=== PATIENT | male | born 1950 | race Caucasian/White ===

== ENCOUNTER 2021-08-17 12:18 | Outpatient (REF) | payer MEDICARE, MEDICAID, SELFPAY ==
--- NOTE | ~2021-08-17 | XR_ITS ---
EXAMINATION: XR KNEES, STANDING AP XR KNEE, RIGHT XR KNEE, LEFT CLINICAL INFORMATION: Knee pain COMPARISON: None TECHNIQUE: Standing AP view of both knees is performed. In addition, each knee is imaged in lateral and axial patella views. FINDINGS: Right: Tricompartment osteoarthritis, greatest medial compartment with secondary genu varus and borderline medial subluxation femur. There is chondrocalcinosis lateral meniscus and trace suprapatellar effusion. No visible erosive change. No lateralization patella. No destructive process. There are scattered atherosclerotic changes vasculature. Left: Tricompartment osteoarthritis, greatest medial compartment with secondary genu varus. There is chondrocalcinosis lateral meniscus and trace suprapatellar effusion. No visible erosive change. No lateralization patella. No destructive process. There are scattered atherosclerotic changes vasculature. XR/XR knee standing BI IMPRESSION: -Bilateral tricompartment osteoarthritis greatest medial compartments with secondary genu varus. -Borderline medial subluxation right femur. -Trace bilateral suprapatellar effusion. -Bilateral meniscal chondrocalcinosis. No erosive changes.
--- NOTE | ~2021-08-17 | XR_ITS ---
EXAMINATION: XR KNEES, STANDING AP XR KNEE, RIGHT XR KNEE, LEFT CLINICAL INFORMATION: Knee pain COMPARISON: None TECHNIQUE: Standing AP view of both knees is performed. In addition, each knee is imaged in lateral and axial patella views. FINDINGS: Right: Tricompartment osteoarthritis, greatest medial compartment with secondary genu varus and borderline medial subluxation femur. There is chondrocalcinosis lateral meniscus and trace suprapatellar effusion. No visible erosive change. No lateralization patella. No destructive process. There are scattered atherosclerotic changes vasculature. Left: Tricompartment osteoarthritis, greatest medial compartment with secondary genu varus. There is chondrocalcinosis lateral meniscus and trace suprapatellar effusion. No visible erosive change. No lateralization patella. No destructive process. There are scattered atherosclerotic changes vasculature. XR/XR knee LT 2V IMPRESSION: -Bilateral tricompartment osteoarthritis greatest medial compartments with secondary genu varus. -Borderline medial subluxation right femur. -Trace bilateral suprapatellar effusion. -Bilateral meniscal chondrocalcinosis. No erosive changes.
--- NOTE | ~2021-08-17 | XR_ITS ---
EXAMINATION: XR KNEES, STANDING AP XR KNEE, RIGHT XR KNEE, LEFT CLINICAL INFORMATION: Knee pain COMPARISON: None TECHNIQUE: Standing AP view of both knees is performed. In addition, each knee is imaged in lateral and axial patella views. FINDINGS: Right: Tricompartment osteoarthritis, greatest medial compartment with secondary genu varus and borderline medial subluxation femur. There is chondrocalcinosis lateral meniscus and trace suprapatellar effusion. No visible erosive change. No lateralization patella. No destructive process. There are scattered atherosclerotic changes vasculature. Left: Tricompartment osteoarthritis, greatest medial compartment with secondary genu varus. There is chondrocalcinosis lateral meniscus and trace suprapatellar effusion. No visible erosive change. No lateralization patella. No destructive process. There are scattered atherosclerotic changes vasculature. XR/XR knee RT 2V IMPRESSION: -Bilateral tricompartment osteoarthritis greatest medial compartments with secondary genu varus. -Borderline medial subluxation right femur. -Trace bilateral suprapatellar effusion. -Bilateral meniscal chondrocalcinosis. No erosive changes.
== END 2021-08-17 12:19 | disposition home or self-care (01) ==
LOC: HO.HOSX 12:18
PROVIDERS: Visit Provider Orthopaedic Surgery
DX: M17.2 Bilateral post-traumatic osteoarthritis of knee (principal)
CPT/HCPCS: 73560; 73565; 99202

== ENCOUNTER 2021-09-17 08:18 | Emergency (ER) | payer MEDICARE, MEDICAID, SELFPAY ==
--- NOTE | ~2021-09-17 | US_ITS ---
EXAMINATION: US VENOUS ULTRASOUND WITH DOPPLER LOWER EXTREMITY, BILATERAL CLINICAL INFORMATION: Swelling and pain COMPARISON: None TECHNIQUE: Ultrasound of the deep veins is performed from the hip to the calf with compression sonography and color and pulse Doppler assessment. Spectral analysis with color-flow imaging is performed. FINDINGS: RIGHT: There is normal venous compression and respiratory variation and augmented flow. The visualized common femoral vein, superficial femoral vein, profunda femoral vein, popliteal vein, and the trifurcation region shows no evidence of deep venous thrombosis. There is no significant popliteal fossa cyst. The peroneal vein was difficult to visualize although patent. LEFT: There is normal venous compression and respiratory variation and augmented flow. The visualized common femoral vein, superficial femoral vein, profunda femoral vein, popliteal vein, and the trifurcation region shows no evidence of deep venous thrombosis. There is no significant popliteal fossa cyst. The peroneal vein was difficult to visualize although patent If the patient's symptoms persist, followup ultrasound in 5 days 7 days might be of value to exclude proximal propagation from a non-visualized calf vein. US/US venous duplex LE BI IMPRESSION: No DVT demonstrated in the bilateral lower extremity. The peroneal veins bilaterally were difficult to visualize however appear patent.
--- NOTE | ~2021-09-17 | XR_ITS ---
EXAMINATION: XR CHEST CLINICAL INFORMATION: SOB and smoker. COMPARISON: None TECHNIQUE: 2 views of the chest were obtained. FINDINGS: No significant abnormality is noted involving the heart, lungs, mediastinum, bony thorax or soft tissues. XR/XR chest 2V IMPRESSION: Unremarkable chest examination.
[2021-09-17 08:53] VITALS: BP 156/75; PULSE 77; RESP 18; TEMP 36.6; O2SAT 93; BMI 41.5
--- NOTE | 2021-09-17 09:38 | ECG_ITS ---
Test Reason : EXTREMITY PROBLEM Blood Pressure : / mmHG Vent. Rate : 069 BPM Atrial Rate : 069 BPM P-R Int : 194 ms QRS Dur : 088 ms QT Int : 400 ms P-R-T Axes : 045 001 047 degrees QTc Int : 428 ms Normal sinus rhythm Normal ECG No previous ECGs available Referred By: Kate Lr Electronically Signed By:BOBBY FERRELL MD
--- NOTE | 2021-09-17 09:46 | ED_ITS ---
HPI - Extremity Problem General Chief complaint: Extremity Problem Stated complaint: Bilateral edema Time Seen by Provider: 09/17/21 09:19 Source: patient Mode of arrival: ambulatory Limitations: no limitations History of Present Illness HPI Narrative: 70-year-old male with a history of HTN, osteoarthritis, HLD, obesity, sleep apnea who presents to the ER for evaluation of worsening lower extremity edema for the last 3 months. He reports about 3 weeks ago he being the inside of his left ankle on his exercise bike and since then he has had slight worsening swelling on the left lower leg as well as some new onset redness. He denies any open wounds at the time of the injury. He has been doing his best to elevate his legs throughout the day but he finds it difficult to do so And he finds it has minimal benefit. He is an active smoker and reports chronic shortness of breath and dyspnea on exertion which is unchanged from prior. He denies any chest pain. He has no history of CHF. He reports a history of venous insufficiency. he also reports intermittent cramping in his legs and feet. He is not diabetic. He takes magnesium for this with some improvement. MD Complaint: extremity swelling Onset (ago): week(s) Pain Consistency: constant Location: left, right and lower extremity Quality: aching Radiation: proximal Relieving factors: immobilization and elevation Exacerbating factors: walking and palpation Associated symptoms: shortness of breath and myalgias Context: history of peripheral vascular disease Related Data Home Medications Medication Instructions Recorded Confirmed baclofen 20 mg tablet 20 mg PO BEDTIME 09/13/20 betamethasone dipropionate 0.05 % appl topical BID PRN 09/13/20 topical cream finasteride 5 mg tablet 5 mg PO DAILY 09/13/20 lidocaine 5 % topical ointment topical DAILY 09/13/20 lisinopril 30 mg tablet 30 mg PO DAILY 09/13/20 naproxen 500 mg tablet 500 mg PO BID 09/13/20 niacin 500 mg tablet,extended 500 mg PO BID 09/13/20 release 24 hr tamsulosin 0.4 mg capsule 0.4 mg PO DAILY 09/13/20 temazepam 30 mg capsule 30 mg PO BEDTIME PRN insomnia 09/13/20 tramadol 50 mg tablet 50 mg PO TID PRN 09/13/20 vitamin B complex-folic acid 0.4 1 tab PO DAILY 07/27/21 mg tablet Previous Rx's Medication Instructions Recorded cephalexin 500 mg capsule 500 mg PO QID 7 days #28 caps 09/17/21 doxycycline hyclate 100 mg tablet 100 mg PO BID 7 days #14 tabs 09/17/21 furosemide 20 mg tablet (Lasix) 20 mg PO QAM #7 tabs 09/17/21 Allergies Allergy/AdvReac Type Severity Reaction Status Date / Time atropine AdvReac Unknown panic Verified 09/13/20 13:33 attack Bee stings Allergy Unknown anaphylaxis Uncoded 09/13/20 13:33 Catheter AdvReac Unknown panic Uncoded 09/13/20 13:33 attack Review of Systems Review of Systems: Constitutional: No Fever, No Chills ENT/Mouth: No sore throat, No Rhinorrhea, No Swallowing Difficulty Eyes: No Eye Pain, No Swelling, No Redness Cardiovascular: No Chest Pain, + SOB, No Orthopnea, + Edema Respiratory: No Cough, No Sputum, No Wheezing, No dyspnea Gastrointestinal: No Nausea, No Vomiting, No Diarrhea, No abdominal Pain, No Hematochezia, No Melena Genitourinary: No Dysuria, No Urinary Frequency, No Hematuria Musculoskeletal: No joint pain, No Myalgias Skin: No Skin Lesions, No rash, +LLE erythema Neuro: No Weakness, No Numbness, No Dizziness, No Headache Psych: No Anxiety/Panic, No Depression Heme/Lymph: No Bruising, No Lymphadenopathy Endocrine: No Polyuria, No Polydipsia [facility] Past Medical History Medical History (Updated 09/17/21 @ 11:18 by NINFA Dimas) Central sleep apnea Colonoscopy refused HTN (hypertension) Hyperlipidemia Insomnia OA (osteoarthritis) of knee Prostate CA Family History Family History Father Family history of cancer Mother CHF (congestive heart failure) Mental health disorder Social History Social History Housing: Apartment Alcohol intake: current Alcohol intake frequency: 0-2 drinks per day Alcohol type: hard liquor Patient Tobacco Use Status: Current everyday Tobacco user Tobacco use type: Cigarette Cigarettes Per Day: 10 Years Smoked: 17 years old Smoked in Last 30 Days: Yes e-Cigarette/Vaping Use: Former Use Use of substances other than those prescribed or required for medical reasons: No Advance Directives: No Advance Directives Information Provided: Yes Current occupational status: retired Physical Exam Vital Signs: Vital Signs: Last Vital Signs Temp 98.1 F 09/17/21 10:50 Pulse 66 09/17/21 10:50 Resp 20 09/17/21 10:50 BP 152/78 H 09/17/21 10:50 Pulse Ox 93 09/17/21 08:53 O2 Del Method 09/17/21 10:50 BMI result Body Mass Index 41.5 Appearance: Alert. Oriented X3. No acute distress. Eyes: Pupils equal, round and reactive to light. ENT: Pharynx normal. Neck: Normal inspection. Neck supple. CVS: Normal heart rate and rhythm. Pulses normal. Respiratory: No respiratory distress. Breath sounds normal. Abdomen: Soft and nontender. +BS x4 Skin: Skin warm and dry. Normal skin color. Normal skin turgor. No rashes. Extremities: 2+ lower extremity edema, slightly worse on the left. mild gen eralized erythema on the medial aspect of the left ankle extending to the distal leg. Mild warmth. Foot is warm and well perfused, 2+ DP and PT pulses. Neuro: Oriented X 3. No motor deficit. No sensory deficit. Steady gait. Course Course Course Narrative: 70-year-old male with a history of GHADA, HTN, HLD, osteoarthritis of the knees with plan for bilateral knee replacements this fall who presents to the ER for evaluation of worsening bilateral lower extremity edema for the last 3 months. Status post recent minor trauma to the left medial ankle with some generalized erythema and warmth to this area with no open wounds. Could be early cellulitis. Will get lower extremity Dopplers to rule out DVT. Will check BNP, chest x-ray given chronic shortness of breath and dyspnea on exertion, suspect undiagnosed COPD. No wheezing or shortness of breath on examination and his SpO2 is normal today. Reevaluation(s) Reevaluation #1: Lower extremity Doppler negative for blood clot. BNP slightly elevated 179. No history of CHF. He has never had an echocardiogram. 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 Given his lower extremity edema has been worsening and slightly elevated BNP will give a short trial of a diuretic for symptomatic relief. He will follow-up with his primary care doctor for further evaluation and assessment. Will also treat empirically for cellulitis given the erythema and warmth on the left lower ankle. Patient agrees with plan, expressed understanding all questions were answered. Comfortable with discharge home with outpatient follow-up. MDM - Extremity (Nontraumatic) Lab Data Result diagrams: 09/17/21 09:52 09/17/21 09:52 Labs: Lab Results 09/17/21 09/17/21 09/17/21 Range/Units 09:52 09:52 09:52 WBC 5.0 (4.8-10.8) X10*3/uL RBC 4.14 L (4.60-5.80) X10*6/uL Hgb 14.3 (14.0-18.0) g/dl Hct 41.6 L (42.0-52.0) % MCV 100.5 H (80.0-98.0) fL MCH 34.5 H (27.0-33.0) pg MCHC 34.4 (31.0-36.0) g/dl RDW 16.3 H (11.0-16.0) % Plt Count 169 (160-400) X10*3/uL MPV 12.0 (9.4-12.4) fL Immature Gran % (Auto) Cancelled Neut % (Auto) Cancelled Lymph % (Auto) Cancelled [place] % (Auto) Cancelled Eos % (Auto) Cancelled Baso % (Auto) Cancelled Lymph # (Auto) Cancelled [place] # (Auto) Cancelled Eos # (Auto) Cancelled Baso # (Auto) Cancelled Abs Immat Gran (auto) Cancelled Absolute Neuts (auto) Cancelled Absolute Nucleated RBC 0.000 (0.0-0.012) X10*3/uL Nucleated RBC % (auto) 0.0 (0.0-0.2) /100WBC Neutrophils % (Manual) 79 H (45-73) % Band Neutrophils % 2 L (3-5) % Lymphocytes % (Manual) 14 L (20-40) % Monocytes % (Manual) 3 (2-11) % Basophils % (Manual) 2 (0-2) % Abs Neuts (Manual) 4.1 (2.0-8.3) X10*3/uL Lymphocytes # (Manual) 0.7 L (1.2-4.9) X10*3/uL Monocytes # (Manual) 0.2 (0.1-1.2) X10*3/uL Basophils # (Manual) 0.1 (0.0-0.2) X10*3/uL WBC Morphology Comment DYSMORPHIC Platelet Estimate NORMAL (NORMAL) Large Platelets PRESENT Plt Morphology Comment NOTED RBC Morphology NORMAL Sodium 140 (135-145) mmol/L Potassium 4.4 (3.3-5.1) mmol/L Chloride 105 (96-108) mmol/L Carbon Dioxide 25 (22-29) mmol/L Anion Gap 14 (12-20) BUN 19 H (9-16) mg/dL Creatinine 1.12 (0.5-1.4) mg/dL Estim Creat Clear Calc 77.2 Estimated GFR > 60 Random Glucose 97 (60-115) mg/dL Calcium 9.6 (8.4-10.2) mg/dL Magnesium 1.8 (1.6-2.6) mg/dL Total Bilirubin 0.8 (0.0-1.0) mg/dL Direct Bilirubin 0.3 (0.0-0.5) mg/dL AST 28 (5-37) U/L ALT 20 (0-40) U/L Alkaline Phosphatase 89 (39-117) U/L B-Natriuretic Peptide 159 H (<100) pg/mL Total Protein 7.9 (6.5-8.0) g/dL Albumin 4.4 (3.5-5.0) g/dL ECG Data Attestation EKG: I personally reviewed and interpreted this ECG as follows: ECG interpretation date: 09/17/21 ECG interpretation time: 10:40 Prior ECG tracings: not available for review Interpretation: Normal sinus rhythm, ventricular rate 69 beats per minute, normal QTC, normal QRS, no ST segment elevations or depressions Critical Care Time Critical Care Time Critical Care Time: No Discharge Plan Discharge Clinical Impression: Bilateral lower extremity edema, Cellulitis Patient Disposition: Home, Self-Care Instructions: Cellulitis (ED), Leg Edema (ED) Additional Instructions: Your ultrasound today was negative for any blood clot. Your BNP (marker for CHF and fluid status) was slightly elevated. Recommend taking the prescribed diuretic, called lasix 20 mg each morning. This will help you urinate out extra fluid and hopefully help with the swelling in your legs. Please start the prescribed antibiotics to help treat a mild infection in your left lower leg. Elevate your legs whenever possible. Recommend use of compression stockings help with swelling. Recommend following up with your doctor within the next week. If you develop new or worsening symptoms call 911 or come back to the ER for further evaluation. Prescriptions: New furosemide [Lasix] 20 mg tablet 20 mg PO QAM Qty: 7 0RF doxycycline hyclate 100 mg tablet 100 mg PO BID 7 Days Qty: 14 0RF cephalexin 500 mg capsule 500 mg PO QID 7 Days Qty: 28 0RF No Action naproxen 500 mg tablet 500 mg PO BID tramadol 50 mg tablet 50 mg PO TID PRN baclofen 20 mg tablet 20 mg PO BEDTIME lisinopril 30 mg tablet 30 mg PO DAILY temazepam 30 mg capsule 30 mg PO BEDTIME PRN (Reason: insomnia) lidocaine 5 % ointment topical DAILY tamsulosin 0.4 mg capsule 0.4 mg PO DAILY niacin 500 mg tablet extended release 24 hr 500 mg PO BID finasteride 5 mg tablet 5 mg PO DAILY betamethasone dipropionate 0.05 % cream topical BID PRN vitamin B complex-folic acid 0.4 mg tablet 1 tab PO DAILY Interventions: ED Discharge Assessment Last Done: 09/17/21 11:33
[2021-09-17 10:01] LABS: Hematocrit 41.6 % (42.0-52.0); Hemoglobin 14.3 g/dl (14.0-18.0); Mean Corpuscular HGB Conc 34.4 g/dl (31.0-36.0); Mean Corpuscular Hemoglobin 34.5 pg (27.0-33.0); Mean Corpuscular Volume 100.5 fL (80.0-98.0); Platelet Count 169 X10*3/uL (160-400); Red Blood Count 4.14 X10*6/uL (4.60-5.80); Red Cell Distribution Width 16.3 % (11.0-16.0)
[2021-09-17 10:03] LABS: WBC ABN SCTR FOR CBC 1
[2021-09-17 10:17] LABS: B Type Natriuretic Peptide 159 pg/mL (<100)
[2021-09-17 10:21] LABS: Alanine Aminotransferase 20 U/L (0-40); Albumin Level 4.4 g/dL (3.5-5.0); Alkaline Phosphatase 89 U/L (39-117); Anion Gap 14 (12-20); Aspartate Amino Transferase 28 U/L (5-37); Bilirubin Direct 0.3 mg/dL (0.0-0.5); Bilirubin Total 0.8 mg/dL (0.0-1.0); Blood Urea Nitrogen 19 mg/dL (9-16); Calcium 9.6 mg/dL (8.4-10.2); Carbon Dioxide 25 mmol/L (22-29); Chloride 105 mmol/L (96-108); Creatinine Clr Calc Pharmacy 77.2; Estimated Glomerular Filt Rate > 60; Glucose Random 97 mg/dL (60-115); Magnesium 1.8 mg/dL (1.6-2.6); Potassium 4.4 mmol/L (3.3-5.1); Sodium 140 mmol/L (135-145); Total Protein 7.9 g/dL (6.5-8.0)
[2021-09-17 10:46] LABS: Band Neutrophils Percent 2 % (3-5); Basophils Percent Manual 2 % (0-2); Large Platelet PRESENT; Lymphocytes Percent Manual 14 % (20-40); Monocytes Percent Manual 3 % (2-11); Neutrophils Percent Manual 79 % (45-73); Platelet Estimate NORMAL (NORMAL); Platelet Morphology Comment NOTED; RBC Morphology NORMAL
[2021-09-17 10:47] LABS: WBC Morphology Comment DYSMORPHIC
[2021-09-17 10:48] LABS: Basophils Abs Manual 0.1 X10*3/uL (0.0-0.2); Lymphocytes Absolute Manual 0.7 X10*3/uL (1.2-4.9); Monocytes Absolute Manual 0.2 X10*3/uL (0.1-1.2); Neutrophils Absolute Manual 4.1 X10*3/uL (2.0-8.3)
[2021-09-17 10:50] VITALS: BP 152/78; PULSE 66; RESP 20; TEMP 36.7
== END 2021-09-17 11:33 | disposition home or self-care (01) ==
PROVIDERS: Physician Assistant; Emergency Provider Student in an Organized Health Care Education/Training Program; PCP Internal Medicine
DX: R60.0 Localized edema (principal); R00.2 Palpitations; R06.02 Shortness of breath; L03.116 Cellulitis of left lower limb; L03.115 Cellulitis of right lower limb; Z79.899 Other long term (current) drug therapy; F17.210 Nicotine dependence, cigarettes, uncomplicated; Z71.6 Tobacco abuse counseling
CPT/HCPCS: 36415; 71046; 80048; 80076; 83735; 83880; 85007; 85025; 85027; 93005; 93970; 99284

== ENCOUNTER → 2021-10-17 10:47 | Outpatient (BNVA) | payer MEDICARE, MEDICAID, SELFPAY | PROVIDERS: PCP Internal Medicine; Visit Provider Surgery Vascular Surgery | DX: I83.11 Varicose veins of right lower extremity with inflammation (principal); I89.0 Lymphedema, not elsewhere classified | CPT/HCPCS: 99202 ==

== ENCOUNTER → 2021-10-26 15:15 | Outpatient (BNVA) | payer MEDICARE, MEDICAID, SELFPAY | PROVIDERS: PCP Internal Medicine; Visit Provider Physician Assistant | DX: Z01.818 Encounter for other preprocedural examination (principal); M17.11 Unilateral primary osteoarthritis, right knee | CPT/HCPCS: 99212 ==

== ENCOUNTER 2021-10-31 07:56 | Inpatient (IN) | payer MEDICARE, MEDICAID, SELFPAY ==
[2021-10-17 12:07] VITALS: BP 160/74; PULSE 67; RESP 20; O2SAT 97; BMI 41.8
--- NOTE | 2021-10-17 12:30 | HO.ANESPROP2 ---
Documented by User: Brandy Weaver NP 10/30/21 09:29 HPI - Anesthesia Eval Consult details Narrative: 70yo M for Right Knee Replacement Total PCP cleared Cleared by vascular. (Pt with 1-2+ edema x 4-5 months. No associated symptoms. Likely venous insuff per Dr Brandon. Will f/u with vascular after healed from TKA.) Pt requesting GA (does not want spinal). Discussed GA vs spinal, risks r/t central sleep apnea. Central sleep apnea - BiPAP [facility] Active Problems Active Problems: All Active Problems (Updated 10/17/21 @ 11:59 by Carolin Ellis RN) Bilateral post-traumatic osteoarthritis of knee (Acute) Vascular insufficiency of extremity (Acute) Varicose veins of right lower extremity with inflammation (Acute) Lymphedema (Acute) Insomnia (Acute) Colonoscopy refused (Acute) Hyperlipidemia (Acute) OA (osteoarthritis) of knee (Acute) HTN (hypertension) (Acute) Prostate CA (Acute) Central sleep apnea (Acute) Past Medical History Medical History Central sleep apnea Colonoscopy refused HTN (hypertension) Hyperlipidemia Insomnia OA (osteoarthritis) of knee Prostate CA Venous insufficiency of both lower extremities Family History Family History Father Family history of cancer Mother CHF (congestive heart failure) Mental health disorder Family history of problems with anesthesia: No Surgical History Surgical History H/O wisdom tooth extraction History of Problems with Anesthesia: No Social History Social History Housing: Apartment Are you a primary customer care consultant to a significant other at home: No Do you presently have visiting nurse or other home services: No Alcohol intake: current Alcohol intake frequency: 0-2 drinks per day Alcohol type: hard liquor Patient Tobacco Use Status: Current everyday Tobacco user Tobacco use type: Cigarette Cigarettes Per Day: 10 Years Smoked: 52 e-Cigarette/Vaping Use: Former Use Use of substances other than those prescribed or required for medical reasons: No Have you been hit, kicked, punched, or otherwise hurt by someone within the past year? If so, by whom?: No Advance Directives: No Advance Directives Information Provided: Yes (brochure given) Advance Directives on File: No Recently lost weight without trying: No Eating poorly because of decreased appetite: No Nutrition Risks: No Nutritional Risk Poor oral hygiene: No (full upper & partial lower denture (usually does not wear)) Current occupational status: retired Narrative Narrative: No recent illness GAYTAN for years r/t weight and deconditioning. No CP. Activity limited to knee pain Meds Allergies Allergy/AdvReac Type Severity Reaction Status Date / Time atropine AdvReac Intermediate panic Verified 10/26/21 15:23 attack Xkvttli-FWG-RuC Reductase AdvReac Intermediate hematuria/ thick Verified 10/26/21 15:23 Inhibitor semen Bee stings Allergy Severe anaphylaxis Uncoded 10/26/21 15:23 urinary catheter AdvReac Intermediate panic Uncoded 10/26/21 15:23 attack Home Medications Medication Instructions Recorded Confirmed Last Taken Type baclofen 20 mg tablet 40 mg PO BEDTIME 09/13/20 10/31/21 Unknown History betamethasone dipropionate 0.05 % 1 appl topical BID PRN Rash 09/13/20 10/17/21 Unknown History topical cream finasteride 5 mg tablet 5 mg PO QPM 09/13/20 10/17/21 Unknown History lidocaine 5 % topical ointment 1 appl topical DAILY 09/13/20 10/17/21 Unknown History lisinopril 30 mg tablet 30 mg PO BEDTIME 09/13/20 10/31/21 Unknown History naproxen 500 mg tablet 500 mg PO BID 09/13/20 10/17/21 Unknown History niacin 500 mg tablet,extended 500 mg PO BID 09/13/20 10/17/21 Unknown History release 24 hr tamsulosin 0.4 mg capsule 0.4 mg PO BEDTIME 09/13/20 10/17/21 Unknown History temazepam 30 mg capsule 30 mg PO BEDTIME PRN insomnia 09/13/20 10/17/21 Unknown History tramadol 50 mg tablet 50 mg PO TID PRN Pain 09/13/20 10/31/21 Unknown History cyanocobalamin (vitamin B-12) 50 50 mcg PO DAILY 10/17/21 10/17/21 Unknown History mcg tablet (Vitamin B-12) folic acid 1 mg tablet 1 mg PO DAILY 10/17/21 10/17/21 Unknown History furosemide 20 mg tablet (Lasix) 20 mg PO QAM PRN Edema 10/17/21 10/17/21 Unknown History Exam Exam Date and Time: October 17, 2021 1230 Height,Weight and Vital Signs: Height 5 ft 7 in Weight 121.018 kg Last Vital Signs Pulse 67 10/17/21 12:07 Resp 20 10/17/21 12:07 BP 160/74 H 10/17/21 12:07 Pulse Ox 97 10/17/21 12:07 O2 Del Method 10/17/21 12:07 Narrative Narrative: EKG 08/2021 Vent. Rate : 069 BPM ? ? Atrial Rate : 069 BPM ?? P-R Int : 194 ms? QRS Dur : 088 ms ? ? QT Int : 400 ms ? ? ? P-R-T Axes : 045 001 047 degrees ?? QTc Int : 428 ms ? Normal sinus rhythm Normal ECG No previous ECGs available Airway Mallampati Class: II TM Dist: <=3cm Neck ROM: Full Denture: Upper Partial: Lower Heart: RRR Lungs: CTAB Assessment and Plan Assessment Anesthesia Assessment: Anesthesia Plan Discussed (Pt requesting GA. Does not want spinal. ) and PAT Visit Final Anesthetic Review Family History of Problems with Anesthesia: No History of Problems with Anesthesia: No Documented by User: Zeb Mcginnis MD 10/31/21 18:17 [facility] Past Medical History Medical History Central sleep apnea Colonoscopy refused HTN (hypertension) Hyperlipidemia Insomnia OA (osteoarthritis) of knee Prostate CA Venous insufficiency of both lower extremities Functional capacity: uses cane/walker Family History Family History Father Family history of cancer Mother CHF (congestive heart failure) Mental health disorder Surgical History Surgical History H/O wisdom tooth extraction Social History Social History Housing: Apartment Are you a primary customer care consultant to a significant other at home: No Do you presently have visiting nurse or other home services: No Alcohol intake: current Alcohol intake frequency: 0-2 drinks per day Alcohol type: hard liquor Patient Tobacco Use Status: Current everyday Tobacco user Tobacco use type: Cigarette Cigarettes Per Day: 10 Years Smoked: 52 e-Cigarette/Vaping Use: Former Use Use of substances other than those prescribed or required for medical reasons: No Have you been hit, kicked, punched, or otherwise hurt by someone within the past year? If so, by whom?: No Advance Directives: No Advance Directives Information Provided: Yes (brochure given) Advance Directives on File: No Recently lost weight without trying: No Eating poorly because of decreased appetite: No Nutrition Risks: No Nutritional Risk Poor oral hygiene: No (full upper & partial lower denture (usually does not wear)) Current occupational status: retired Meds Allergies Allergy/AdvReac Type Severity Reaction Status Date / Time atropine AdvReac Intermediate panic Verified 10/26/21 15:23 attack Zqktniv-[id number]-XbB Reductase AdvReac Intermediate hematuria/ thick Verified 10/26/21 15:23 Inhibitor semen Bee stings Allergy Severe anaphylaxis Uncoded 10/26/21 15:23 urinary catheter AdvReac Intermediate panic Uncoded 10/26/21 15:23 attack Home Medications Medication Instructions Recorded Confirmed Last Taken Type baclofen 20 mg tablet 40 mg PO BEDTIME 09/13/20 10/31/21 Unknown History betamethasone dipropionate 0.05 % 1 appl topical BID PRN Rash 09/13/20 10/17/21 Unknown History topical cream finasteride 5 mg tablet 5 mg PO QPM 09/13/20 10/17/21 Unknown History lidocaine 5 % topical ointment 1 appl topical DAILY 09/13/20 10/17/21 Unknown History lisinopril 30 mg tablet 30 mg PO BEDTIME 09/13/20 10/31/21 Unknown History naproxen 500 mg tablet 500 mg PO BID 09/13/20 10/17/21 Unknown History niacin 500 mg tablet,extended 500 mg PO BID 09/13/20 10/17/21 Unknown History release 24 hr tamsulosin 0.4 mg capsule 0.4 mg PO BEDTIME 09/13/20 10/17/21 Unknown History temazepam 30 mg capsule 30 mg PO BEDTIME PRN insomnia 09/13/20 10/17/21 Unknown History tramadol 50 mg tablet 50 mg PO TID PRN Pain 09/13/20 10/31/21 Unknown History cyanocobalamin (vitamin B-12) 50 50 mcg PO DAILY 10/17/21 10/17/21 Unknown History mcg tablet (Vitamin B-12) folic acid 1 mg tablet 1 mg PO DAILY 10/17/21 10/17/21 Unknown History furosemide 20 mg tablet (Lasix) 20 mg PO QAM PRN Edema 10/17/21 10/17/21 Unknown History Exam Airway Loose/Missing/Broken Teeth: Yes (Poor dentition globally ) Assessment and Plan Assessment Anesthesia Assessment: Chart Reviewed Final Anesthetic Review NPO: Yes ASA Class: III Final Preanesthetic Review: Meds/Allgs Chart Reviewed, Consent Obtained/Reviewed and Anes Risks/Benef Reviewed Patient Risk: High Procedure Risk: Intermediate Anesthetic Plan Anesthetic Plan: GA Disposition: Inp. Admit - Standard Bed
[2021-10-17 13:52] LABS: Hematocrit 40.9 % (42.0-52.0); Hemoglobin 14.3 g/dl (14.0-18.0); Mean Corpuscular Hemoglobin 34.8 pg (27.0-33.0); Mean Corpuscular Volume 99.5 fL (80.0-98.0); Mean Platelet Volume 12.4 fL (9.4-12.4); Platelet Count 169 X10*3/uL (160-400); Red Blood Count 4.11 X10*6/uL (4.60-5.80); Red Cell Distribution Width 16.7 % (11.0-16.0)
[2021-10-17 13:59] LABS: WBC ABN SCTR FOR CBC 1
[2021-10-17 14:17] LABS: MRSA Nasal PCR NEGATIVE (Negative); SA Nasal PCR NEGATIVE (Negative)
[2021-10-17 14:22] LABS: Band Neutrophils Percent 1 % (3-5); Eosinophils Absolute Manual 0.1 X10*3/uL (0.0-0.4); Eosinophils Percent Manual 1 % (0-4); Lymphocytes Absolute Manual 0.7 X10*3/uL (1.2-4.9); Lymphocytes Percent Manual 12 % (20-40); Monocytes Absolute Manual 0.2 X10*3/uL (0.1-1.2); Monocytes Percent Manual 3 % (2-11); Neutrophils Absolute Manual 4.7 X10*3/uL (2.0-8.3); Neutrophils Percent Manual 83 % (45-73); Platelet Estimate NORMAL (NORMAL); Platelet Morphology Comment NORMAL; RBC Morphology NORMAL; White Blood Count 5.6 X10*3/uL (4.8-10.8)
[2021-10-17 14:25] LABS: Anion Gap 16 (12-20); Blood Urea Nitrogen 15 mg/dL (9-16); Carbon Dioxide 21 mmol/L (22-29); Chloride 106 mmol/L (96-108); Creatinine Clr Calc Pharmacy 68.9; Estimated Glomerular Filt Rate 57; Potassium 4.3 mmol/L (3.3-5.1); Sodium 139 mmol/L (135-145)
[2021-10-31] VITALS (20 sets, daily range): BP systolic 91–163; BP diastolic 43–95; PULSE 61–86; RESP 12–20; TEMP 36.2–36.8; O2SAT 93–97
--- NOTE | ~2021-10-31 | XR_ITS ---
EXAMINATION: XR KNEE, RIGHT CLINICAL INFORMATION: Right knee replacement COMPARISON: Previous x-ray July 2021 TECHNIQUE: Two views of the right knee. FINDINGS: There is a new 3 component right knee replacement in satisfactory position. No fracture or dislocation is seen. There are postoperative changes to the soft tissues. XR/XR knee RT 2V IMPRESSION: Satisfactory appearance of right knee replacement.
--- NOTE | 2021-10-31 08:25 | PHA.MEDREC ---
Pharmacy Consult ? Medication Reconciliation Pharmacy has completed the medication reconciliation. Reviewed med rec done by nursing
[2021-10-31 08:37] LABS: COVID-19 Test Negative (Negative)
[2021-10-31] MEDS: Lactated Ringers 1,000 ML 100 ML IVCONT ×2 (08:54→16:06)
[2021-10-31 09:10] LABS: Hematocrit 41.7 % (42.0-52.0); Hemoglobin 14.3 g/dl (14.0-18.0)
--- NOTE | 2021-10-31 09:36 | MHC.SHP ---
Pre-Procedural Eval Section A Date of Service: 10/31/21 The patient is an INPATIENT: No Changes since office visit: Yes Patient answered all questions; No Cold of Flu in the past 2 weeks, No New Medical Problems and No Changes in Medication The History & Physical has been completed within 30 days and I have reviewed it.: Yes Section B Chief Complaint: RT TKA Allergies: Allergies Allergy/AdvReac Type Severity Reaction Status Date / Time atropine AdvReac Intermediate panic Verified 10/26/21 15:23 attack Onrowyi-UXF-UyD Reductase AdvReac Intermediate hematuria/ thick Verified 10/26/21 15:23 Inhibitor semen Bee stings Allergy Severe anaphylaxis Uncoded 10/26/21 15:23 urinary catheter AdvReac Intermediate panic Uncoded 10/26/21 15:23 attack Plan I have reviewed the history and physical and performed a pertinent physical examination on my patient. No changes have occurred unless specified.
--- NOTE | 2021-10-31 11:47 | P.BOP_ITS ---
Brief Operative Note Date of Service: 10/31/21 Pre-op diagnosis: Right knee OA Post-op diagnosis: same Procedure: Right TKA Implants: Lucila press fit Triathalon posterior stabilized 05/24/15ps/35a Surgeon: Stephan Capellan MD Anesthesia: GETA Was an Orthotic/Prosthetic Practitioner used for this Procedure?: Yes Orthotic/Prosthetic Practitioner: Kyle Queen Estimated blood loss (mL): 250 IV fluids (mL): 1,000 Pathology: other Condition: stable Disposition: PACU
--- NOTE | 2021-10-31 11:48 | W.PM.OPN ---
Operative Note Operative Note Date of Service: 10/31/21 Narrative: Date of Service: 10/31/21 Pre-op diagnosis: Right knee OA Post-op diagnosis: same Procedure: Right TKA Implants: Grandy press fit Triathalon posterior stabilized 4/5/16ps/35a Surgeon: Stephan Capellan MD Anesthesia: GETA Was an Director Of Strategic Programs used for this Procedure?: Yes Director Of Strategic Programs: Kyle Queen Estimated blood loss (mL): 250 IV fluids (mL): 1,000 Pathology: other Condition: stable Disposition: PACU Procedure in detail: The patient was brought to the operating room and prepped and draped in standard sterile fashion. A time-out was called to identify proper site proper procedure proper surgeon and IV antibiotics were administered. 1 g of IV tranexamic acid was administered. I began by making a midline incision to the retinaculum and performed a medial parapatellar arthrotomy. The patella was translated laterally and the knee was flexed up. There was severe tricompartemntal eburnation with extensive chondrocalcinosis involving the menicii. He had a 10 deg varus deformity. I performed a small medial peel and resected the infrapatellar fat pad. Pasco's line was then used to drill my intramedullary femoral guide and my distal femur cut of 10 mm was made in 5 degrees of valgus while protecting the soft tissues. I then measured a #4 femur and placed my cutting guide and made my anterior posterior and chamfer cuts protecting the soft tissues at all times. I then made my box but removing the PCL. Once I was satisfied with my cuts I turned my attention to the tibia. I removed the meniscus medially and laterally and , using an external cutting guide, in line with the tibial crest and the third ray, I made my distal tibial cut in 0 deg slope of while protecting the posterior soft tissues at all times. An extension block was used to confirm appropriate amount of bony resection. I then sized a #5 tibia and once I was satisfied that there was complete tibial coverage I placed my trial and with the trial femur in place took the knee through range of motion with a 13mm insert. I was satisfied with the extension and flexion as well as the stability and balance at 0, 30 and 90 degrees. I then turned my attention to the patella where I removed 1 cm from the undersurface of the patella and then trialed a 35a patellar button. Again the knee was taken through range of motion I was satisfied with the tracking. I then returned to the femur and drilled my femoral lug holes and prepared the tibia. A femoral bone plug was placed and the knee was irrigated copiously. I then press fit the patella, tibia and femur in standard fashion. I trialed different inserts until I selected a #16 insert. The final insert was placed and a 3 minutes iodine soak with local TXA was performed. The knee was then closed with a running Quill suture, a 3 0 Vicryl and becka on the skin. Patient was then placed in sterile dressing and brought to recovery room in stable condition there were no known complications.
[2021-10-31] MEDS: HYDROmorphone HCl 0.5 MG/0.5 ML SYRINGE 0.25 MG IVPUSH ×5 (12:30→23:43)
[2021-10-31] MEDS: HYDROmorphone HCl 0.5 MG/0.5 ML SYRINGE IVPUSH ×3 (13:49→15:02)
[2021-10-31] MEDS: ceFAZolin Sodium/Dextrose,Iso 2 GM/50 ML PIGGYBACK IV (16:09)
--- NOTE | 2021-10-31 16:09 | P.CONHOSP_ITS ---
History of Present Illness Data of Consult Service Date: 10/31/21 Requesting physician: Stephan Capellan Primary Care Provider: Shay Gorman MD HPI 70-year-old man admitted by Orthopedic surgery and is status post right total knee arthroplasty. Surgery was unremarkable. Patient is hemodynamically stable. He has no acute medical complaints at this time. Review of Systems Review of Systems: Denies any recent fever chills or decrease in appetite respiratory denies any shortness of breath coverage production cardiovascular is adjustment of any PND or edema gastrointestinal denies any dysphagia abdominal pain nausea vomiting or diarrhea genitourinary denies any dysuria frequency or hematuria musculoskeletal denies any joint pain or swelling neuropsych denies any weakness or seizures all other systems reviewed are negative [facility] Medical History Central sleep apnea Colonoscopy refused HTN (hypertension) Hyperlipidemia Insomnia OA (osteoarthritis) of knee Prostate CA Venous insufficiency of both lower extremities Functional capacity: uses cane/walker Family History Father Family history of cancer Mother CHF (congestive heart failure) Mental health disorder Surgical History H/O wisdom tooth extraction Social History Housing: Apartment Are you a primary acute care assistant to a significant other at home: No Do you presently have visiting nurse or other home services: No Alcohol intake: current Alcohol intake frequency: 0-2 drinks per day Alcohol type: hard liquor Patient Tobacco Use Status: Current everyday Tobacco user Tobacco use type: Cigarette Cigarettes Per Day: 10 Years Smoked: 52 e-Cigarette/Vaping Use: Former Use Use of substances other than those prescribed or required for medical reasons: No Have you been hit, kicked, punched, or otherwise hurt by someone within the past year? If so, by whom?: No Advance Directives: No Advance Directives Information Provided: Yes (brochure given) Advance Directives on File: No Recently lost weight without trying: No Eating poorly because of decreased appetite: No Nutrition Risks: No Nutritional Risk Poor oral hygiene: No (full upper & partial lower denture (usually does not wear)) Current occupational status: retired Meds Allergies Allergy/AdvReac Type Severity Reaction Status Date / Time atropine AdvReac Intermediate panic Verified 10/26/21 15:23 attack Asqfkal-BKW-NkO Reductase AdvReac Intermediate hematuria/ thick Verified 10/26/21 15:23 Inhibitor semen Bee stings Allergy Severe anaphylaxis Uncoded 10/26/21 15:23 urinary catheter AdvReac Intermediate panic Uncoded 10/26/21 15:23 attack Active Medications: Current Medications Acetaminophen (Acetaminophen 325 Mg Tablet) 650 mg PO Q6H PRN PRN Reason: Pain, Mild (Pain Scale 1-3) Baclofen (Baclofen 20 Mg Tablet) 40 mg PO BEDTIME SEAN Celecoxib (Celecoxib 200 Mg Capsule) 200 mg PO BID SEAN Docusate Sodium (Docusate Sodium 100 Mg Capsule) 100 mg PO BID SEAN Enoxaparin Sodium (Enoxaparin Sodium 40 Mg/0.4 Ml Syringe) 40 mg SUBCUT Q24H SEAN Finasteride (Finasteride 5 Mg Tablet) 5 mg PO BEDTIME SEAN Folic Acid (Folic Acid 1 Mg Tablet) 1 mg PO DAILY SEAN Furosemide (Furosemide 20 Mg Tablet) 20 mg PO DAILY PRN; Protocol PRN Reason: Edema Hydromorphone HCl (Hydromorphone Hcl 0.5 Mg/0.5 Ml Syringe) 0.25 mg IVPUSH Q4H PRN; Protocol PRN Reason: Pain, Severe (Pain Scale 7-10) Lactated Ringer's (Lr) 1,000 mls @ 100 mls/hr IVCONT .Q10H SEAN Stop: 11/01/21 15:42 Last Admin: 10/31/21 16:06 Dose: 100 mls/hr Cefazolin Sodium/Dextrose (Ancef) 2 gm in 50 mls @ 100 mls/hr IV POSTOP ONE Stop: 10/31/21 16:29 Last Admin: 10/31/21 16:09 Dose: 100 mls/hr Ondansetron HCl (Ondansetron Hcl 4 Mg/2 Ml Vial) 4 mg IVPUSH Q8H PRN PRN Reason: Nausea and Vomiting Oxycodone HCl (Oxycodone Hcl Er 10 Mg Tab.Er.12h) 10 mg PO BID SEAN Oxycodone HCl (Oxycodone Hcl Immed Release 5 Mg Tablet) 10 mg PO Q4H PRN PRN Reason: Pain, Moderate (Pain Scale 4-6 Sodium Chloride (0.9 % Sodium Chloride Flush 3 Ml Syringe) 3 ml IVFLUSH QSHIFT [facility] Temazepam (Temazepam 15 Mg Capsule) 30 mg PO BEDTIME PRN PRN Reason: insomnia Home Medications Medication Instructions Recorded Confirmed Last Taken Type baclofen 20 mg tablet 40 mg PO BEDTIME 09/13/20 10/31/21 Unknown History betamethasone dipropionate 0.05 % 1 appl topical BID PRN Rash 09/13/20 10/17/21 Unknown History topical cream finasteride 5 mg tablet 5 mg PO QPM 09/13/20 10/17/21 Unknown History lidocaine 5 % topical ointment 1 appl topical DAILY 09/13/20 10/17/21 Unknown History lisinopril 30 mg tablet 30 mg PO BEDTIME 09/13/20 10/31/21 Unknown History naproxen 500 mg tablet 500 mg PO BID 09/13/20 10/17/21 Unknown History niacin 500 mg tablet,extended 500 mg PO BID 09/13/20 10/17/21 Unknown History release 24 hr tamsulosin 0.4 mg capsule 0.4 mg PO BEDTIME 09/13/20 10/17/21 Unknown History temazepam 30 mg capsule 30 mg PO BEDTIME PRN insomnia 09/13/20 10/17/21 Unknown History tramadol 50 mg tablet 50 mg PO TID PRN Pain 09/13/20 10/31/21 Unknown History cyanocobalamin (vitamin B-12) 50 50 mcg PO DAILY 10/17/21 10/17/21 Unknown History mcg tablet (Vitamin B-12) folic acid 1 mg tablet 1 mg PO DAILY 10/17/21 10/17/21 Unknown History furosemide 20 mg tablet (Lasix) 20 mg PO QAM PRN Edema 10/17/21 10/17/21 Unknown History Physical Exam Vital Signs and Narrative: Vital Signs: Last Vital Signs Temp 98.3 F 10/31/21 15:02 Pulse 71 10/31/21 15:07 Resp 18 10/31/21 15:07 BP 116/57 L 10/31/21 15:07 Pulse Ox 97 10/31/21 15:07 O2 Del Method 10/31/21 15:07 O2 Flow Rate 2 10/31/21 15:07 BMI result Body Mass Index 41.8 Appearing in no acute distress head is normocephalic atraumatic eyes pupils are PERRLA sclera is anicteric mouth throat mucous membranes are intact and moist neck is supple no lymphadenopathy, no JVD noted lung sounds are clear to auscultation heart regular rate rhythm, clear S1, S2 positive bowel sounds, abdomen is soft, nontender neuro patient is alert x3, no focal deficits Results Labs CBC and Chem 7: 10/31/21 09:01 10/17/21 13:15 Labs: Laboratory Results - last 24 hr 10/31/21 08:04 COVID-19 ([facility]) Negative COVID-19 Clin Com See Note Imaging Radiologist's Impressions: Impressions Knee X-Ray 10/31/21 12:29 IMPRESSION: Satisfactory appearance of right knee replacement. Assessment and Plan (1) Osteoarthritis of right knee: Status: Acute Plan 70-year-old man admitted by Orthopedic surgery and is status post right total knee arthroplasty Right total knee arthroplasty Management as per surgical team Pain management Hypertension. Stable blood pressure May continue lisinopril for blood pressure allows tomorrow BPH Continue finasteride GHADA hyperlipidemia Morbid obesity. BMI 41.8 Discussed importance of weight management as this may be contributing to worsening of other comorbidities DVT prophylaxis with Lovenox Attending Dr. Khanna Full code
[2021-10-31] MEDS: oxyCODONE HCl Immed Release 5 MG TABLET 10 MG PO ×2 (16:25→21:00)
[2021-10-31] MEDS: Acetaminophen 325 MG TABLET 650 MG PO ×2 (16:25→22:13)
[2021-10-31] MEDS: Nicotine 14 MG PATCH.TD24 TRANSDERMA (17:43)
[2021-10-31] MEDS: Docusate Sodium 100 MG CAPSULE PO (21:01)
[2021-10-31] MEDS: oxyCODONE HCl ER 10 MG TAB.ER.12H PO (21:01)
[2021-10-31] MEDS: Celecoxib 200 MG CAPSULE PO (21:01)
[2021-10-31] MEDS: Finasteride 5 MG TABLET PO (21:02)
[2021-10-31] MEDS: Baclofen 20 MG TABLET 40 MG PO (21:02)
[2021-10-31] MEDS: Temazepam 15 MG CAPSULE 30 MG PO (22:07)
[2021-10-31] MEDS: 0.9 % Sodium Chloride Flush 3 ML SYRINGE IVFLUSH (23:44)
[2021-11-01] VITALS (8 sets, daily range): BP systolic 122–170; BP diastolic 58–92; PULSE 79–98; RESP 16–20; TEMP 36–37.1; O2SAT 95–97
[2021-11-01] MEDS: oxyCODONE HCl Immed Release 5 MG TABLET 10 MG PO ×4 (01:34→17:41)
[2021-11-01] MEDS: Lactated Ringers 1,000 ML 100 ML IVCONT ×2 (01:36→10:53)
[2021-11-01] MEDS: HYDROmorphone HCl 0.5 MG/0.5 ML SYRINGE 0.25 MG IVPUSH (04:40)
[2021-11-01 05:53] LABS: MANUAL DIFF FLAG NO
[2021-11-01 06:02] LABS: Basophils Absolute Auto 0.1 X10*3/uL (0.0-0.2); Basophils Percent Auto 0.8 % (0-2); Eosinophils Percent Auto 0.6 % (0-4); Hematocrit 36.5 % (42.0-52.0); Hemoglobin 12.4 g/dl (14.0-18.0); Imm Gran Abs Auto 0.02 X10*3/uL (0.00-0.03); Imm Gran Pct Auto 0.3 % (0.0-0.4); Lymphocytes Absolute Auto 0.7 X10*3/uL (1.2-4.9); Lymphocytes Percent Auto 11.3 % (20-40); Mean Corpuscular Hemoglobin 34.1 pg (27.0-33.0); Mean Corpuscular Volume 100.3 fL (80.0-98.0); Mean Platelet Volume 12.4 fL (9.4-12.4); Monocytes Absolute Auto 0.6 X10*3/uL (0.1-1.2); Monocytes Percent Auto 9.1 % (2-11); Neutrophils Percent Auto 77.9 % (45-73); Platelet Count 170 X10*3/uL (160-400); Red Blood Count 3.64 X10*6/uL (4.60-5.80); Red Cell Distribution Width 16.5 % (11.0-16.0); White Blood Count 6.4 X10*3/uL (4.8-10.8)
[2021-11-01 06:18] LABS: Anion Gap 14 (12-20); Blood Urea Nitrogen 13 mg/dL (9-16); Calcium 8.2 mg/dL (8.4-10.2); Carbon Dioxide 25 mmol/L (22-29); Chloride 101 mmol/L (96-108); Creatinine Clr Calc Pharmacy 85.9; Estimated Glomerular Filt Rate > 60; Glucose Fasting 107 mg/dL (60-99); Sodium 136 mmol/L (135-145)
[2021-11-01] MEDS: Docusate Sodium 100 MG CAPSULE PO ×2 (08:15→20:08)
[2021-11-01] MEDS: Celecoxib 200 MG CAPSULE PO ×2 (08:15→20:08)
[2021-11-01] MEDS: Nicotine 14 MG PATCH.TD24 TRANSDERMA (08:15)
[2021-11-01] MEDS: Folic Acid 1 MG TABLET PO (08:15)
[2021-11-01] MEDS: oxyCODONE HCl ER 10 MG TAB.ER.12H PO ×2 (08:15→20:07)
--- NOTE | 2021-11-01 09:02 | PM.PNORT ---
Subjective Subjective Date of Service: 11/01/21 Interval history: POD1 s/p RTKA. Patient is resting in bed. No overnight events. Patient reports pain. No additional complaints. Physical Exam Vital Signs: Vital Signs: Last Vital Signs Temp 97.2 F 11/01/21 07:22 Pulse 91 11/01/21 08:14 Resp 18 11/01/21 07:22 BP 141/92 H 11/01/21 08:14 Pulse Ox 97 11/01/21 08:14 O2 Del Method 11/01/21 07:22 O2 Flow Rate 2 11/01/21 04:00 BMI result Body Mass Index 41.8 Const: General: cooperative, healthy appearing and no acute distress Resp: Effort & Inspection: normal respiratory effort and able to speak in complete sentences Cardio: Rate: regular rate Peripheral pulses: Peripheral pulses 2+ throughout GI: Palpation (GI): Soft to palpation Skin: Lesions: no lesions Rashes: no rashes Extrem: Other: Right knee Aquacel is clean, dry, and intact. Patient is able to dorsiflex and plantarflex. NVI. Procedures Date of Service Date of Service: 11/01/21 Progress Note: A&P Assessment and plan (1) Status post total knee replacement, right: Status: Acute Plan Continue pain mgmnt Begin Lovenox for dvt ppx begin PT for RTKA Dispo planning-Pending PT eval, pain mgmnt Time Spent With Patient Time: Total time spent is greater than 50% in coordination of care (as documented) at patient's floor/unit and/or counseling patient: Quality Stroke Does the patient have a stroke diagnosis?: No VTE Prior VTE?: No VTE Risk Level:: Medical - moderate - high VTE Device Contraindication: N/A - Device Ordered VTE Drug Contraindication: N/A - Med Ordered
[2021-11-01] MEDS: HYDROmorphone HCl 0.5 MG/0.5 ML SYRINGE IVPUSH ×3 (09:07→16:24)
--- NOTE | 2021-11-01 09:20 | HO.PM.IMPN ---
Subjective Subjective Date of Service: 11/01/21 Review of Systems Follow-up consultation for total knee arthroplasty Doing better, ambulating in the room Having some issues urinating Physical Exam Vital Signs: Vital Signs: Last Vital Signs Temp 97.2 F 11/01/21 07:22 Pulse 91 11/01/21 08:14 Resp 18 11/01/21 07:22 BP 141/92 H 11/01/21 08:14 Pulse Ox 97 11/01/21 08:14 O2 Del Method 11/01/21 07:22 O2 Flow Rate 2 11/01/21 04:00 BMI result Body Mass Index 41.8 Appearing in no acute distress lung sounds are clear to auscultation heart regular rate rhythm, clear S1, S2 positive bowel sounds, abdomen is soft, nontender neuro patient is alert x3, no focal deficits Right knee surgical dressing intact unable to visualize surgical incision Objective Data Active Medications Acetaminophen (Acetaminophen 325 Mg Tablet) 650 mg PO Q6H PRN PRN Reason: Pain, Mild (Pain Scale 1-3) Last Admin: 10/31/21 22:13 Dose: 650 mg Documented By: MAIRA Baclofen (Baclofen 20 Mg Tablet) 40 mg PO BEDTIME [facility] Last Admin: 10/31/21 21:02 Dose: 40 mg Documented By: MAIRA Celecoxib (Celecoxib 200 Mg Capsule) 200 mg PO BID [facility] Last Admin: 11/01/21 08:15 Dose: 200 mg Documented By: JAMAAL Docusate Sodium (Docusate Sodium 100 Mg Capsule) 100 mg PO BID [facility] Last Admin: 11/01/21 08:15 Dose: 100 mg Documented By: JAMAAL Enoxaparin Sodium (Enoxaparin Sodium 40 Mg/0.4 Ml Syringe) 40 mg SUBCUT Q24H [facility] Finasteride (Finasteride 5 Mg Tablet) 5 mg PO BEDTIME [facility] Last Admin: 10/31/21 21:02 Dose: 5 mg Documented By: MAIRA Folic Acid (Folic Acid 1 Mg Tablet) 1 mg PO DAILY [facility] Last Admin: 11/01/21 08:15 Dose: 1 mg Documented By: JAMAAL Furosemide (Furosemide 20 Mg Tablet) 20 mg PO DAILY PRN; Protocol PRN Reason: Edema Hydromorphone HCl (Hydromorphone Hcl 0.5 Mg/0.5 Ml Syringe) 0.5 mg IVPUSH Q3H PRN; Protocol PRN Reason: Pain, Severe (Pain Scale 7-10) Last Admin: 11/01/21 09:07 Dose: 0.5 mg Documented By: JAMAAL Lactated Ringer's (Lr) 1,000 mls @ 100 mls/hr IVCONT .Q10H [facility] Stop: 11/01/21 15:42 Last Admin: 11/01/21 01:36 Dose: 100 mls/hr Documented By: SOPHIE Nicotine (Nicotine 14 Mg Patch.Td24) 14 mg TRANSDERMA DAILY [facility] Last Admin: 11/01/21 08:15 Dose: 14 mg Documented By: JAMAAL Ondansetron HCl (Ondansetron Hcl 4 Mg/2 Ml Vial) 4 mg IVPUSH Q8H PRN PRN Reason: Nausea and Vomiting Oxycodone HCl (Oxycodone Hcl Er 10 Mg Tab.Er.12h) 10 mg PO BID [facility] Last Admin: 11/01/21 08:15 Dose: 10 mg Documented By: JAMAAL Oxycodone HCl (Oxycodone Hcl Immed Release 5 Mg Tablet) 10 mg PO Q4H PRN PRN Reason: Pain, Moderate (Pain Scale 4-6 Last Admin: 11/01/21 06:43 Dose: 10 mg Documented By: SOPHIE Sodium Chloride (0.9 % Sodium Chloride Flush 3 Ml Syringe) 3 ml IVFLUSH QSHIFT [facility] Last Admin: 11/01/21 08:16 Dose: Not Given Documented By: JAMAAL Non-Admin Reason: IV Running Tamsulosin HCl (Tamsulosin Hcl 0.4 Mg Capsule) 0.4 mg PO BEDTIME [facility] Temazepam (Temazepam 15 Mg Capsule) 30 mg PO BEDTIME PRN PRN Reason: insomnia Last Admin: 10/31/21 22:07 Dose: 30 mg Documented By: MAIRA Labs CBC & Chem 7: 11/01/21 05:24 11/01/21 05:24 Labs: Laboratory Results - last 24 hr 11/01/21 11/01/21 05:24 05:24 MCV 100.3 H MCH 34.1 H MCHC 34.0 RDW 16.5 H Plt Count 170 MPV 12.4 Immature Gran % (Auto) 0.3 Neut % (Auto) 77.9 H Lymph % (Auto) 11.3 L [place] % (Auto) 9.1 Eos % (Auto) 0.6 Baso % (Auto) 0.8 Lymph # (Auto) 0.7 L [place] # (Auto) 0.6 Eos # (Auto) 0.0 Baso # (Auto) 0.1 Abs Immat Gran (auto) 0.02 Absolute Neuts (auto) 5.0 Absolute Nucleated RBC 0.000 Nucleated RBC % (auto) 0.0 Anion Gap 14 Estim Creat Clear Calc 85.9 Estimated GFR > 60 Fasting Glucose 107 H Calcium 8.2 L D Assessment and Plan (1) Status post total knee replacement, right: Status: Acute Plan 70-year-old man admitted by Orthopedic surgery and is status post right total knee arthroplasty Right total knee arthroplasty Management as per surgical team Pain management Hypertension.? Stable blood pressure May continue lisinopril for blood pressure allows tomorrow BPH Continue finasteride and Flomax GHADA CPAP at home hyperlipidemia Morbid obesity.? BMI 41.8 Discussed importance of weight management as this may be contributing to worsening of other comorbidities Smoker Discussed the importance of smoking cessation Offered nicotine patch DVT prophylaxis with Lovenox Attending Dr. Sharp Full code MEDICAL CONSULTATION COMPLETED. WILL SIGN OFF Quality Stroke Does the patient have a stroke diagnosis?: No VTE Prior VTE?: No VTE Risk Level:: Medical - moderate - high VTE Device Contraindication: N/A - Device Ordered VTE Drug Contraindication: N/A - Med Ordered
--- NOTE | 2021-11-01 09:23 | MHC.CM.PN ---
Addendum entered by Lola Hoang 11/01/21 14:20: Bed offers from [facility] when ready for d/c. Original Note: This television writer met with patient for discharge planning. Patient is from home. Lives in a 2nd floor apartment with stair access only. Has BED WORKER services 3 hours per week. PCP verified. No HCP. PT recommending STR- referrals placed based on pt's choice. Vax'd and boosted w/ [employer].
[2021-11-01] MEDS: Enoxaparin Sodium 40 MG/0.4 ML SYRINGE SUBCUT (10:55)
[2021-11-01] MEDS: Tamsulosin HCL 0.4 MG CAPSULE PO (11:22)
--- NOTE | 2021-11-01 11:42 | HO.POSTANES ---
Post Anesthesia Evaluation Post Anesthesia Evaluation Vital Signs: Vital Signs Temp Pulse Resp BP Pulse Ox O2 Del Method O2 Flow Rate 11/01/21 08:14 91 141/92 H 97 11/01/21 07:22 97.2 F 91 18 141/92 H 97 Room Air 11/01/21 04:00 98.0 F 82 17 135/67 96 Nasal Cannula 2 10/31/21 23:47 98.0 F 67 18 118/50 L 97 Nasal Cannula 2 Anesthesia: Nerve Block and General Mental Status: Awake Pain Control: Satisfactory Nausea/Vomiting: None Hydration: Adequate Anesthesia-Related Issues: No Anes. Related Issues
[2021-11-01] MEDS: Finasteride 5 MG TABLET PO (20:07)
[2021-11-01] MEDS: Baclofen 20 MG TABLET 40 MG PO (20:07)
[2021-11-01] MEDS: lisinopriL 10 MG TABLET 30 MG PO (20:07)
[2021-11-01] MEDS: Temazepam 15 MG CAPSULE 30 MG PO (20:07)
[2021-11-01] MEDS: 0.9 % Sodium Chloride Flush 3 ML SYRINGE IVFLUSH (23:52)
[2021-11-02] MEDS: HYDROmorphone HCl 0.5 MG/0.5 ML SYRINGE IVPUSH ×2 (00:10→06:23)
[2021-11-02] MEDS: oxyCODONE HCl Immed Release 5 MG TABLET 10 MG PO ×4 (03:30→16:59)
[2021-11-02 03:32] VITALS: BP 141/67; PULSE 89; RESP 16; TEMP 36.4; O2SAT 96
[2021-11-02 06:43] LABS: MANUAL DIFF FLAG NO
[2021-11-02 06:58] LABS: Basophils Absolute Auto 0.1 X10*3/uL (0.0-0.2); Basophils Percent Auto 0.7 % (0-2); Eosinophils Absolute Auto 0.1 X10*3/uL (0.0-0.4); Eosinophils Percent Auto 0.9 % (0-4); Hemoglobin 12.1 g/dl (14.0-18.0); Imm Gran Abs Auto 0.03 X10*3/uL (0.00-0.03); Imm Gran Pct Auto 0.4 % (0.0-0.4); Lymphocytes Absolute Auto 0.8 X10*3/uL (1.2-4.9); Lymphocytes Percent Auto 10.1 % (20-40); Mean Corpuscular HGB Conc 34.6 g/dl (31.0-36.0); Mean Corpuscular Hemoglobin 34.4 pg (27.0-33.0); Mean Corpuscular Volume 99.4 fL (80.0-98.0); Mean Platelet Volume 12.2 fL (9.4-12.4); Monocytes Absolute Auto 0.6 X10*3/uL (0.1-1.2); Monocytes Percent Auto 8.6 % (2-11); Neutrophils Absolute Auto 5.9 x10*3/uL (2.0-8.3); Neutrophils Percent Auto 79.3 % (45-73); Platelet Count 190 X10*3/uL (160-400); Red Blood Count 3.52 X10*6/uL (4.60-5.80); Red Cell Distribution Width 16.6 % (11.0-16.0); White Blood Count 7.4 X10*3/uL (4.8-10.8)
[2021-11-02 07:12] LABS: Anion Gap 16 (12-20); Blood Urea Nitrogen 14 mg/dL (9-16); Calcium 9.1 mg/dL (8.4-10.2); Carbon Dioxide 23 mmol/L (22-29); Chloride 99 mmol/L (96-108); Creatinine Clr Calc Pharmacy 98.6; Estimated Glomerular Filt Rate > 60; Glucose Fasting 111 mg/dL (60-99); Potassium 4.3 mmol/L (3.3-5.1); Sodium 134 mmol/L (135-145)
[2021-11-02 07:30] VITALS: BP 128/62; PULSE 83; RESP 20; TEMP 36.6; O2SAT 97
[2021-11-02] MEDS: Nicotine 14 MG PATCH.TD24 TRANSDERMA (09:12)
[2021-11-02] MEDS: Docusate Sodium 100 MG CAPSULE PO (09:12)
[2021-11-02] MEDS: Celecoxib 200 MG CAPSULE PO (09:12)
[2021-11-02] MEDS: oxyCODONE HCl ER 10 MG TAB.ER.12H PO (09:12)
[2021-11-02] MEDS: Folic Acid 1 MG TABLET PO (09:13)
[2021-11-02] MEDS: 0.9 % Sodium Chloride Flush 3 ML SYRINGE IVFLUSH (09:14)
[2021-11-02 10:31] VITALS: BP 128/62; PULSE 83; O2SAT 97
--- NOTE | 2021-11-02 10:55 | PM.DS ---
DS: Providers Provider Date of Service: 11/02/21 Date of admission: 10/31/21 07:56 Primary care physician: Shay Gorman MD Consults: 10/31/21 15:43 Consult to Hospitalist Routine Consulting Provider: Hospitalist Reason For Exam: HTN, sleep pnea DS: Diagnosis Discharge Diagnosis (1) Status post total knee replacement, right: Status: Acute DS: Summary Hospital Course Hospital Course: The patient underwent a successful Right total knee arthroplasty, was transferred to PACU and then to the floor to recover. During their stay, their vitals were stable, afebrile at 98.0. Labs were unremarkable, H/H 12.1/35.0. POD he was started on Lovenox for DVT ppx, also received PT services twice a day. Prior to discharge, their dressing was changed, incision clean dry and intact, new Aquacel dressing applied and the plan was to be discharged to [facility]. Time Spent with Patient Time attestation: Total time spent providing and/or coordinating discharge services: Discharge coordination time: Less than 30 minutes Quality: Safe Use of Opioids Does Pt have an Active Cancer Diagnosis on the Problem List?: No Quality: Stroke Does the patient have a stroke diagnosis?: No Physical Exam Vital Signs: Vital Signs: Last Vital Signs Temp 98 F 11/02/21 07:30 Pulse 83 11/02/21 10:31 Resp 20 11/02/21 07:30 BP 128/62 11/02/21 10:31 Pulse Ox 97 11/02/21 10:31 O2 Del Method 11/02/21 07:30 O2 Flow Rate 2 11/01/21 04:00 BMI result Body Mass Index 41.8 Const: General: cooperative, healthy appearing and no acute distress Resp: Effort & Inspection: normal respiratory effort and able to speak in complete sentences Cardio: Rate: regular rate Peripheral pulses: Peripheral pulses 2+ throughout GI: Palpation (GI): Soft to palpation Skin: General skin exam: no rashes or lesions noted Extrem: Other: incision clean dry and intact. Anil intact. No erythema or joint effusion. Calf supple nontender. Neurovascularly intact. DS: Data Data Completed and Pending Pending studies at discharge: Pending at discharge 10/31/21 10:44 Surgical [PTH] Routine Labs on day of discharge: Laboratory Results - last 24 hr 11/02/21 11/02/21 06:05 06:06 WBC 7.4 RBC 3.52 L Hgb 12.1 L Hct 35.0 L MCV 99.4 H MCH 34.4 H MCHC 34.6 RDW 16.6 H Plt Count 190 MPV 12.2 Immature Gran % (Auto) 0.4 Neut % (Auto) 79.3 H Lymph % (Auto) 10.1 L [place] % (Auto) 8.6 Eos % (Auto) 0.9 Baso % (Auto) 0.7 Lymph # (Auto) 0.8 L [place] # (Auto) 0.6 Eos # (Auto) 0.1 Baso # (Auto) 0.1 Abs Immat Gran (auto) 0.03 Absolute Neuts (auto) 5.9 Absolute Nucleated RBC 0.000 Nucleated RBC % (auto) 0.0 Sodium 134 L Potassium 4.3 Chloride 99 Carbon Dioxide 23 Anion Gap 16 BUN 14 Creatinine 0.88 Estim Creat Clear Calc 98.6 Estimated GFR > 60 Fasting Glucose 111 H Calcium 9.1 D Discharge Plan Discharge Patient Disposition: [facility] Discharge Diagnosis: Right TKA Referrals: Kyle Queen PA-C [Physician Fly Maker] - 2 Weeks (11/16/21 3:00 [facility] Kyle Queen PA-C) Discharge Medications: New docusate sodium 100 mg Capsule 100 mg PO BID 14 Days Qty: 28 0RF oxycodone 10 mg tablet 10 mg PO Q4H PRN (Reason: Pain, Moderate (Pain Scale 4-6) 7 Days Qty: 42 0RF Rx Instructions: Partial Fill upon patient request. celecoxib 200 mg Capsule 200 mg PO BID 14 Days Qty: 28 0RF acetaminophen 325 mg Tablet 650 mg PO Q6H PRN (Reason: Pain, Mild (Pain Scale 1-3)) 30 Days Qty: 240 0RF enoxaparin 40 mg/0.4 mL Syringe 40 mg subcut Q24H 42 Days Qty: 16.8 0RF nicotine 14 mg/24 hr Patch 24 Hour 14 mg transdermal DAILY 28 Days Qty: 28 0RF Continued Vitamin B-12 50 mcg Tablet 50 mcg PO DAILY folic acid 1 mg Tablet 1 mg PO DAILY furosemide [Lasix] 20 mg tablet 20 mg PO QAM PRN (Reason: Edema) baclofen 20 mg tablet 40 mg PO BEDTIME lisinopril 30 mg tablet 30 mg PO BEDTIME temazepam 30 mg capsule 30 mg PO BEDTIME PRN (Reason: insomnia) lidocaine 5 % ointment 1 appl topical DAILY tamsulosin 0.4 mg capsule 0.4 mg PO BEDTIME niacin 500 mg tablet extended release 24 hr 500 mg PO BID finasteride 5 mg tablet 5 mg PO QPM betamethasone dipropionate 0.05 % cream 1 appl topical BID PRN (Reason: Rash) Discontinued naproxen 500 mg tablet 500 mg PO BID tramadol 50 mg tablet 50 mg PO TID PRN (Reason: Pain) Discharge Orders: Discharge Order (Routine); Ordered 11/02/21 Ordered By: Kyle Queen Diet: Regular diet Activity on Discharge: Use cane or walker Stand Alone Forms: Patient Portal Discharge page Care Plan Goals: Restore function of joint Health Concerns: none Plan of Treatment: Physical Therapy Pain management DVT prophylaxis Assessment: Physical Therapy for Total knee arthroplasty: WBAT, gait training, ROM 0-12, quad strength Limit stair climbing No showering, no tub bath-keep dressing clean, dry and intact No driving x6 weeks Continue Lovenox once a day x 6 weeks Follow up with [facility] in 2 weeks: 11/16/21 @ 3pm --you will also have your first out patient PT marvin on the day of your post op appt-so please plan on being in the office that day for an extended period of time.
[2021-11-02 11:46] VITALS: BP 127/70; PULSE 97; RESP 18; TEMP 36.6; O2SAT 96
[2021-11-02] MEDS: Enoxaparin Sodium 40 MG/0.4 ML SYRINGE SUBCUT (12:06)
[2021-11-02] MEDS: Acetaminophen 325 MG TABLET 650 MG PO (12:06)
[2021-11-02] MEDS: Tamsulosin HCL 0.4 MG CAPSULE PO (12:49)
[2021-11-02 14:36] LABS: Influenza A PCR NEGATIVE (Negative); Influenza B PCR NEGATIVE (Negative); Resp Syncy Virus RNA Qual PCR NEGATIVE (Negative); SARS COV2 PCR INHOUSE NEGATIVE (Negative)
[2021-11-02 15:24] VITALS: BP 103/59; PULSE 80; RESP 17; TEMP 35.7; O2SAT 97
== END 2021-11-02 17:52 | disposition skilled nursing facility (03) | DRG 470 ==
LOC: HO.SSSA 08:04 → HO.S3 14:50
PROVIDERS: Physician Assistant; Admitting Provider Orthopaedic Surgery; PCP Internal Medicine; Visit Provider Orthopaedic Surgery
PROC: 0SRC0JA Replacement of Right Knee Joint with Synthetic Substitute, Uncemented, Open Approach (ICD-10-PCS; CPT 27447; principal; 2021-10-31 09:40)
DX: M17.11 Unilateral primary osteoarthritis, right knee (principal); Z68.41 Body mass index [BMI] 40.0-44.9, adult; G47.31 Primary central sleep apnea; E78.5 Hyperlipidemia, unspecified; N40.0 Benign prostatic hyperplasia without lower urinary tract symptoms; E66.01 Morbid (severe) obesity due to excess calories; I10 Essential (primary) hypertension; C61 Malignant neoplasm of prostate; F17.210 Nicotine dependence, cigarettes, uncomplicated; Z71.6 Tobacco abuse counseling; Z20.822 Contact with and (suspected) exposure to COVID-19; Z79.899 Other long term (current) drug therapy
CPT/HCPCS: 0241U; 36415; 73560; 80048; 80051; 82565; 84520; 85007; 85014; 85018; 85025; 85027; 86850; 86900; 86901; 87635; 87640; 87641; 88305; 88311; 97110; 97116; 97162; C1776; J0131; J0690; J1170; J1650; J2250; J2550; J2795; J3010

== ENCOUNTER 2021-11-05 12:04 | Emergency (ER) | payer MEDICARE, MEDICAID, SELFPAY ==
--- NOTE | ~2021-11-05 | XR_ITS ---
Indication: Evaluate for osteomyelitis, swelling, redness EXAMINATION: Right tib-fib, right knee. Comparison to previous dated 10/31/2021. 4 views of the right knee do not show acute bony loss. There is a 3 part prosthesis. Comparable to previous. No bony erosion or osteopenia is seen here. No evidence for hardware failure. 2 views of the right tib-fib show no suspicious finding distally. No bony erosion or periosteal change. Some degeneration at the level the ankle joint is likely. Correlation recommended here. XR/XR knee RT 4V IMPRESSION: No convincing evidence for an acute bony finding
--- NOTE | ~2021-11-05 | US_ITS ---
EXAMINATION: US VENOUS ULTRASOUND WITH DOPPLER LOWER EXTREMITY, RIGHT CLINICAL INFORMATION: Edema, pain COMPARISON: None TECHNIQUE: Ultrasound of the deep veins is performed from the hip to the calf with compression sonography and color and pulse Doppler assessment. Spectral analysis with color-flow imaging is performed. FINDINGS: There is normal venous compression and respiratory variation and augmented flow. The visualized common femoral vein, superficial femoral vein, profunda femoral vein, popliteal vein, within normal limits. Proximal posterior tibial vein and peroneal veins are not imaged by the manager java. States edematous change limits exam If the patient's symptoms persist, followup ultrasound in 5 days 7 days might be of value to exclude proximal propagation from a non-visualized calf vein. US/US venous duplex LE RT IMPRESSION: No DVT demonstrated in the right lower extremity. The calf veins are however not adequately visualized by the manager java due to edema
--- NOTE | ~2021-11-05 | XR_ITS ---
Indication: Evaluate for osteomyelitis, swelling, redness EXAMINATION: Right tib-fib, right knee. Comparison to previous dated 10/31/2021. 4 views of the right knee do not show acute bony loss. There is a 3 part prosthesis. Comparable to previous. No bony erosion or osteopenia is seen here. No evidence for hardware failure. 2 views of the right tib-fib show no suspicious finding distally. No bony erosion or periosteal change. Some degeneration at the level the ankle joint is likely. Correlation recommended here. XR/XR tibia fibula RT 2V IMPRESSION: No convincing evidence for an acute bony finding
[2021-11-05 12:20] VITALS: BP 110/70; PULSE 86; O2SAT 98; BMI 30.5
[2021-11-05 12:32] VITALS: BP 139/66; PULSE 78; RESP 14; TEMP 36.9; O2SAT 98
--- NOTE | 2021-11-05 12:35 | ED_ITS ---
HPI - General Adult General Chief complaint: General Medical Stated complaint: R LEG SWELLING AND PAIN Time Seen by Provider: 11/05/21 13:41 Source: patient Mode of arrival: ambulatory Limitations: no limitations History of Present Illness HPI narrative: 70-year-old male status post total right knee replacement under 13 who flew to move frequently ED right leg pain and swelling. Patient states he is taking Lovenox. Patient states no fever or chills. Patient states area is warm to touch. Patient denies any chest pain or shortness of breath. Patient states surgery done by Dr. Capellan. Patient denies any knee swelling or redness. Related Data Home Medications Medication Instructions Recorded Confirmed baclofen 20 mg tablet 40 mg PO BEDTIME 09/13/20 10/31/21 betamethasone dipropionate 0.05 % 1 appl topical BID PRN Rash 09/13/20 10/17/21 topical cream finasteride 5 mg tablet 5 mg PO QPM 09/13/20 10/17/21 lidocaine 5 % topical ointment 1 appl topical DAILY 09/13/20 10/17/21 lisinopril 30 mg tablet 30 mg PO BEDTIME 09/13/20 10/31/21 niacin 500 mg tablet,extended 500 mg PO BID 09/13/20 10/17/21 release 24 hr tamsulosin 0.4 mg capsule 0.4 mg PO BEDTIME 09/13/20 10/17/21 temazepam 30 mg capsule 30 mg PO BEDTIME PRN insomnia 09/13/20 10/17/21 cyanocobalamin (vitamin B-12) 50 50 mcg PO DAILY 10/17/21 10/17/21 mcg tablet (Vitamin B-12) folic acid 1 mg tablet 1 mg PO DAILY 10/17/21 10/17/21 furosemide 20 mg tablet (Lasix) 20 mg PO QAM PRN Edema 10/17/21 10/17/21 Previous Rx's Medication Instructions Recorded acetaminophen 325 mg tablet 650 mg PO Q6H PRN Pain, Mild (Pain 11/02/21 Scale 1-3) 30 days #240 tabs celecoxib 200 mg capsule 200 mg PO BID 14 days #28 caps 11/02/21 docusate sodium 100 mg capsule 100 mg PO BID 14 days #28 caps 11/02/21 enoxaparin 40 mg/0.4 mL 40 mg (0.4 mL) subcut Q24H 42 days 11/02/21 subcutaneous syringe #16.8 mL nicotine 14 mg/24 hr daily 14 mg transdermal DAILY 4 weeks 11/02/21 transdermal patch #28 ea oxycodone 10 mg tablet 10 mg PO Q4H PRN Pain, Moderate 11/02/21 (Pain Scale 4-6 7 days #42 tabs Allergies Allergy/AdvReac Type Severity Reaction Status Date / Time atropine AdvReac Intermediate panic Verified 10/26/21 15:23 attack [id number] Reductase AdvReac Intermediate hematuria/ thick Verified 10/26/21 15:23 Inhibitor semen Bee stings Allergy Severe anaphylaxis Uncoded 10/26/21 15:23 urinary catheter AdvReac Intermediate panic Uncoded 10/26/21 15:23 attack Review of Systems Review of Systems: Right Leg swelling Yes all other systems are reviewed and are negative PMFSH Past Medical History Medical History Central sleep apnea Colonoscopy refused HTN (hypertension) Hyperlipidemia Insomnia OA (osteoarthritis) of knee Prostate CA Venous insufficiency of both lower extremities Surgical History H/O wisdom tooth extraction Family History Family History Father Family history of cancer Mother CHF (congestive heart failure) Mental health disorder Social History Social History Housing: Apartment Are you a primary transitional care liaison to a significant other at home: No Do you presently have visiting nurse or other home services: No Alcohol intake: current Alcohol intake frequency: 0-2 drinks per day Alcohol type: hard liquor Patient Tobacco Use Status: Current everyday Tobacco user Tobacco use type: Cigarette Cigarettes Per Day: 10 Years Smoked: 52 e-Cigarette/Vaping Use: Former Use Advance Directives: No Advance Directives Information Provided: No service: No Current occupational status: retired Physical Exam ED Vital Signs: Vital Signs - 24 hr 11/05/21 12:32 11/05/21 16:57 Temperature 98.4 F Pulse Rate 78 79 Respiratory Rate 14 18 Blood Pressure 139/66 123/60 Pulse Oximetry 98 96 Oxygen Delivery Method Room Air Room Air BMI result Body Mass Index 30.5 Const General: cooperative, healthy appearing, comfortable, no acute distress, well developed, alert, awake and Physically active Orientation/consciousness: oriented to person, oriented to place, oriented to time and patient oriented x3 HENGA Head: Yes normal to inspection, Yes No palpable skull fracture present, Yes normocephalic, Yes atraumatic and No abrasion Neck Neck: Yes no meningeal signs Chest Chest palpation & inspection: normal inspection of the chest and normal palpation of entire chest wall Resp Effort & Inspection: normal respiratory effort and able to speak in complete sentences Auscultation: clear to auscultation bilaterally Cardio Jugular venous distension: no JVD Heart sounds: S1 normal heart sound present and S2 normal heart sound present GI Inspection: Yes normal to inspection and No abdominal wall ecchymosis Palpation (GI): Soft to palpation, not firm, nontender, no guarding and not rigid General: No CVA tenderness and Yes no CVA tenderness Back/Spine/Pelvis Back: no CVA tenderness, No CVA tenderness and No back tenderness Skin General skin exam: no rashes or lesions noted and elasticity normal Neuro General: oriented to person, oriented to place, oriented to time, patient oriented x3, gait normal, tone normal, moves all extremities, Normal light touch and pain sensation, no meningeal signs, no focal motor deficits and CN's II-XI intact bilaterally Extrem Other: Right knee negative for swelling or erythema. positive for tenderness on palpation. negative for redness, pus discharge, or foul odor. Popitieal Pulses intact Right leg: positive right leg swelling, tenderness and warmth and slight redness. Vascular, neuro exam is intact. MOtor exam limitied due to pain. LEft lower extremity is normal. General: Yes normal to inspection and Yes full ROM Psych Appearance: grossly normal, well kempt and not disheveled Course Course Course Narrative: Labs, ultrasound, x-ray ordered. Reevaluation(s) Reevaluation #1: Lactic acid 2.4. ESR CRP elevated. Ultrasound negative for DVT. Patient start antibiotic vancomycin and ceftriaxone. Vital signs stable Time: 13:02 Reevaluation #2: Case discussed with Orthopedic NINFA Wright and was informed of patient's history, physical exam, and diagnostics. She was also was sent picture patient of right lower extremity and labs results. She states patient is not having infection and does not need antibiotics. She states patient presentation of knee and leg with elevated lab markers such as ESR CRP and lactic acid are expected postsurgical changes. She states patient needs to elevate right lower extremity improve circulation. She states patient can follow-up with clinic tomorrow she will call patient. Patient himself does not want to go back to his short-term rehab placement. Time: 15:50 Reevaluation #3: NINFA Wright made aware patient will stay over night for case managment evaluation. Time: 16:42 Medical Decision Making Lab Data Result diagrams: 11/05/21 13:02 11/05/21 13:02 Labs: Lab Results 11/05/21 11/05/21 11/05/21 Range/Units 13:02 13:02 13:02 WBC 6.0 (4.8-10.8) X10*3/uL RBC 3.19 L (4.60-5.80) X10*6/uL Hgb 10.6 L (14.0-18.0) g/dl Hct 31.4 L (42.0-52.0) % MCV 98.4 H (80.0-98.0) fL MCH 33.2 H (27.0-33.0) pg MCHC 33.8 (31.0-36.0) g/dl RDW 15.9 (11.0-16.0) % Plt Count 254 D (160-400) X10*3/uL MPV 12.1 (9.4-12.4) fL Immature Gran % (Auto) Cancelled Neut % (Auto) Cancelled Lymph % (Auto) Cancelled [place] % (Auto) Cancelled Eos % (Auto) Cancelled Baso % (Auto) Cancelled Lymph # (Auto) Cancelled [place] # (Auto) Cancelled Eos # (Auto) Cancelled Baso # (Auto) Cancelled Abs Immat Gran (auto) Cancelled Absolute Neuts (auto) Cancelled Absolute Nucleated RBC 0.000 (0.0-0.012) X10*3/uL Nucleated RBC % (auto) 0.0 (0.0-0.2) /100WBC Neutrophils % (Manual) 80 H (45-73) % Band Neutrophils % 0 L (3-5) % Lymphocytes % (Manual) 17 L (20-40) % Monocytes % (Manual) 3 (2-11) % Abs Neuts (Manual) 4.8 (2.0-8.3) X10*3/uL Lymphocytes # (Manual) 1.0 L (1.2-4.9) X10*3/uL Monocytes # (Manual) 0.2 (0.1-1.2) X10*3/uL Platelet Estimate NORMAL (NORMAL) Large Platelets PRESENT Plt Morphology Comment NOTED RBC Morphology NORMAL ESR 81 H (0-15) MM/HR PT 14.9 H (10.0-13.1) SEC INR 1.3 H (0.9-1.1) APTT 34.1 (26.0-36.4) SEC Sodium (135-145) mmol/L Potassium (3.3-5.1) mmol/L Chloride (96-108) mmol/L Carbon Dioxide (22-29) mmol/L Anion Gap (12-20) BUN (9-16) mg/dL Creatinine (0.5-1.4) mg/dL Estim Creat Clear Calc Estimated GFR Random Glucose (60-115) mg/dL Lactic Acid (0.5-2.0) mmol/L Lactic Acid F/U @ 2Hr (0.5-2.0) mmol/L Calcium (8.4-10.2) mg/dL Total Bilirubin (0.0-1.0) mg/dL AST (5-37) U/L ALT (0-40) U/L Alkaline Phosphatase (39-117) U/L C-Reactive Protein (< or = 0.50) mg/dL Total Protein (6.5-8.0) g/dL Albumin (3.5-5.0) g/dL Urine Color Urine Appearance Urine pH (5.0-9.0) Ur Specific [place] (1.005-1.025) Urine Protein (Neg-Trace) mg/dL Urine Glucose (UA) (Negative) mg/dL Urine Ketones (Negative) mg/dL Urine Blood (Negative) Urine Nitrite (Negative) Ur Leukocyte Esterase (Negative) Urine RBC (0-2) /HPF Urine WBC (0-5) /HPF Ur Squamous Epith Cells (0-2) /HPF Urine Bacteria (None Seen) Hyaline Casts (0-2) /LPF 11/05/21 11/05/21 11/05/21 Range/Units 13:02 13:02 13:45 WBC (4.8-10.8) X10*3/uL RBC (4.60-5.80) X10*6/uL Hgb (14.0-18.0) g/dl Hct (42.0-52.0) % MCV (80.0-98.0) fL MCH (27.0-33.0) pg MCHC (31.0-36.0) g/dl RDW (11.0-16.0) % Plt Count (160-400) X10*3/uL MPV (9.4-12.4) fL Immature Gran % (Auto) Neut % (Auto) Lymph % (Auto) [place] % (Auto) Eos % (Auto) Baso % (Auto) Lymph # (Auto) [place] # (Auto) Eos # (Auto) Baso # (Auto) Abs Immat Gran (auto) Absolute Neuts (auto) Absolute Nucleated RBC (0.0-0.012) X10*3/uL Nucleated RBC % (auto) (0.0-0.2) /100WBC Neutrophils % (Manual) (45-73) % Band Neutrophils % (3-5) % Lymphocytes % (Manual) (20-40) % Monocytes % (Manual) (2-11) % Abs Neuts (Manual) (2.0-8.3) X10*3/uL Lymphocytes # (Manual) (1.2-4.9) X10*3/uL Monocytes # (Manual) (0.1-1.2) X10*3/uL Platelet Estimate (NORMAL) Large Platelets Plt Morphology Comment RBC Morphology ESR (0-15) MM/HR PT (10.0-13.1) SEC INR (0.9-1.1) APTT (26.0-36.4) SEC Sodium 139 (135-145) mmol/L Potassium 4.0 (3.3-5.1) mmol/L Chloride 100 (96-108) mmol/L Carbon Dioxide 27 (22-29) mmol/L Anion Gap 16 (12-20) BUN 24 H D (9-16) mg/dL Creatinine 1.00 (0.5-1.4) mg/dL Estim Creat Clear Calc 73.9 Estimated GFR > 60 Random Glucose 154 H D (60-115) mg/dL Lactic Acid 2.4 H* (0.5-2.0) mmol/L Lactic Acid F/U @ 2Hr (0.5-2.0) mmol/L Calcium 8.8 (8.4-10.2) mg/dL Total Bilirubin 1.3 H (0.0-1.0) mg/dL AST 23 (5-37) U/L ALT 15 (0-40) U/L Alkaline Phosphatase 79 (39-117) U/L C-Reactive Protein 15.20 H (< or = 0.50) mg/dL Total Protein 6.6 (6.5-8.0) g/dL Albumin 3.6 (3.5-5.0) g/dL Urine Color Yellow Urine Appearance Clear Urine pH 6.0 (5.0-9.0) Ur Specific [place] 1.015 (1.005-1.025) Urine Protein Negative (Neg-Trace) mg/dL Urine Glucose (UA) Negative (Negative) mg/dL Urine Ketones Negative (Negative) mg/dL Urine Blood Negative (Negative) Urine Nitrite Negative (Negative) Ur Leukocyte Esterase Trace H (Negative) Urine RBC 0-2 (0-2) /HPF Urine WBC 0-5 (0-5) /HPF Ur Squamous Epith Cells 0-2 (0-2) /HPF Urine Bacteria None Seen (None Seen) Hyaline Casts 0-2 (0-2) /LPF 11/05/21 Range/Units 16:32 WBC (4.8-10.8) X10*3/uL RBC (4.60-5.80) X10*6/uL Hgb (14.0-18.0) g/dl Hct (42.0-52.0) % MCV (80.0-98.0) fL MCH (27.0-33.0) pg MCHC (31.0-36.0) g/dl RDW (11.0-16.0) % Plt Count (160-400) X10*3/uL MPV (9.4-12.4) fL Immature Gran % (Auto) Neut % (Auto) Lymph % (Auto) [place] % (Auto) Eos % (Auto) Baso % (Auto) Lymph # (Auto) [place] # (Auto) Eos # (Auto) Baso # (Auto) Abs Immat Gran (auto) Absolute Neuts (auto) Absolute Nucleated RBC (0.0-0.012) X10*3/uL Nucleated RBC % (auto) (0.0-0.2) /100WBC Neutrophils % (Manual) (45-73) % Band Neutrophils % (3-5) % Lymphocytes % (Manual) (20-40) % Monocytes % (Manual) (2-11) % Abs Neuts (Manual) (2.0-8.3) X10*3/uL Lymphocytes # (Manual) (1.2-4.9) X10*3/uL Monocytes # (Manual) (0.1-1.2) X10*3/uL Platelet Estimate (NORMAL) Large Platelets Plt Morphology Comment RBC Morphology ESR (0-15) MM/HR PT (10.0-13.1) SEC INR (0.9-1.1) APTT (26.0-36.4) SEC Sodium (135-145) mmol/L Potassium (3.3-5.1) mmol/L Chloride (96-108) mmol/L Carbon Dioxide (22-29) mmol/L Anion Gap (12-20) BUN (9-16) mg/dL Creatinine (0.5-1.4) mg/dL Estim Creat Clear Calc Estimated GFR Random Glucose (60-115) mg/dL Lactic Acid (0.5-2.0) mmol/L Lactic Acid F/U @ 2Hr 0.8 (0.5-2.0) mmol/L Calcium (8.4-10.2) mg/dL Total Bilirubin (0.0-1.0) mg/dL AST (5-37) U/L ALT (0-40) U/L Alkaline Phosphatase (39-117) U/L C-Reactive Protein (< or = 0.50) mg/dL Total Protein (6.5-8.0) g/dL Albumin (3.5-5.0) g/dL Urine Color Urine Appearance Urine pH (5.0-9.0) Ur Specific [place] (1.005-1.025) Urine Protein (Neg-Trace) mg/dL Urine Glucose (UA) (Negative) mg/dL Urine Ketones (Negative) mg/dL Urine Blood (Negative) Urine Nitrite (Negative) Ur Leukocyte Esterase (Negative) Urine RBC (0-2) /HPF Urine WBC (0-5) /HPF Ur Squamous Epith Cells (0-2) /HPF Urine Bacteria (None Seen) Hyaline Casts (0-2) /LPF Discharge Plan Discharge Clinical Impression: Leg pain, right Patient Disposition: Still a Patient Prescriptions: No Action Vitamin B-12 50 mcg Tablet 50 mcg PO DAILY folic acid 1 mg Tablet 1 mg PO DAILY furosemide [Lasix] 20 mg tablet 20 mg PO QAM PRN (Reason: Edema) docusate sodium 100 mg Capsule 100 mg PO BID 14 Days Qty: 28 0RF oxycodone 10 mg tablet 10 mg PO Q4H PRN (Reason: Pain, Moderate (Pain Scale 4-6) 7 Days Qty: 42 0RF Rx Instructions: Partial Fill upon patient request. celecoxib 200 mg Capsule 200 mg PO BID 14 Days Qty: 28 0RF acetaminophen 325 mg Tablet 650 mg PO Q6H PRN (Reason: Pain, Mild (Pain Scale 1-3)) 30 Days Qty: 240 0RF enoxaparin 40 mg/0.4 mL Syringe 40 mg subcut Q24H 42 Days Qty: 16.8 0RF nicotine 14 mg/24 hr Patch 24 Hour 14 mg transdermal DAILY 28 Days Qty: 28 0RF baclofen 20 mg tablet 40 mg PO BEDTIME lisinopril 30 mg tablet 30 mg PO BEDTIME temazepam 30 mg capsule 30 mg PO BEDTIME PRN (Reason: insomnia) lidocaine 5 % ointment 1 appl topical DAILY tamsulosin 0.4 mg capsule 0.4 mg PO BEDTIME niacin 500 mg tablet extended release 24 hr 500 mg PO BID finasteride 5 mg tablet 5 mg PO QPM betamethasone dipropionate 0.05 % cream 1 appl topical BID PRN (Reason: Rash)
[2021-11-05 13:12] LABS: Hematocrit 31.4 % (42.0-52.0); Hemoglobin 10.6 g/dl (14.0-18.0); Mean Corpuscular HGB Conc 33.8 g/dl (31.0-36.0); Mean Corpuscular Hemoglobin 33.2 pg (27.0-33.0); Mean Corpuscular Volume 98.4 fL (80.0-98.0); Mean Platelet Volume 12.1 fL (9.4-12.4); Platelet Count 254 X10*3/uL (160-400); Red Blood Count 3.19 X10*6/uL (4.60-5.80); Red Cell Distribution Width 15.9 % (11.0-16.0)
[2021-11-05 13:15] LABS: WBC ABN SCTR FOR CBC 1
[2021-11-05 13:19] LABS: INTERNATIONAL NORM RATIO 1.3 (0.9-1.1); Prothrombin Time 14.9 SEC (10.0-13.1)
[2021-11-05 13:22] LABS: Partial Thromboplastin Time 34.1 SEC (26.0-36.4)
[2021-11-05 13:38] LABS: Lymphocytes Percent Manual 17 % (20-40); Monocytes Percent Manual 3 % (2-11); Neutrophils Percent Manual 80 % (45-73)
[2021-11-05 13:39] LABS: Band Neutrophils Percent 0 % (3-5)
[2021-11-05 13:40] LABS: Alanine Aminotransferase 15 U/L (0-40); Albumin Level 3.6 g/dL (3.5-5.0); Alkaline Phosphatase 79 U/L (39-117); Anion Gap 16 (12-20); Aspartate Amino Transferase 23 U/L (5-37); Bilirubin Total 1.3 mg/dL (0.0-1.0); Blood Urea Nitrogen 24 mg/dL (9-16); Calcium 8.8 mg/dL (8.4-10.2); Carbon Dioxide 27 mmol/L (22-29); Chloride 100 mmol/L (96-108); Creatinine Clr Calc Pharmacy 73.9; Estimated Glomerular Filt Rate > 60; Glucose Random 154 mg/dL (60-115); Sodium 139 mmol/L (135-145); Total Protein 6.6 g/dL (6.5-8.0)
[2021-11-05 13:41] LABS: Large Platelet PRESENT; Platelet Estimate NORMAL (NORMAL); Platelet Morphology Comment NOTED; RBC Morphology NORMAL
[2021-11-05 13:42] LABS: Lactic Acid 2.4 mmol/L (0.5-2.0); Monocytes Absolute Manual 0.2 X10*3/uL (0.1-1.2); Neutrophils Absolute Manual 4.8 X10*3/uL (2.0-8.3)
[2021-11-05 13:52] LABS: Appearance Urine Clear; Color Urine Yellow; Glucose Urine UA Negative (Negative); Leukocyte Esterase Urine Trace (Negative); Nitrite Urine Negative (Negative); Specific Gravity - Urine 1.015 (1.005-1.025); UMIC TRIGGER UACC YES; Urine Blood Negative (Negative); Urine Ketones Negative (Negative); Urine Protein Negative (Neg-Trace)
[2021-11-05 13:57] LABS: Bacteria Urine None Seen (None Seen); Hyaline Casts Urine 0-2 /LPF (0-2); RBC Urine 0-2 /HPF (0-2); Squamous Epithelial Cell Urine 0-2 /HPF (0-2); WBC Urine 0-5 /HPF (0-5)
[2021-11-05 14:01] LABS: Erythrocyte Sedimentation Rate 81 MM/HR (0-15)
[2021-11-05] MEDS: cefTRIAXone sodium 1 GM in 0.9 % Sodium Chloride 50 ML IV (14:10)
[2021-11-05] MEDS: Morphine Sulfate 4 MG/ML CARTRIDGE IVPUSH (14:10)
[2021-11-05 15:05] LABS: Reflex Lactate? Lactic Acid Added
[2021-11-05] MEDS: 0.9 % Sodium Chloride 1,000 ML 999 ML IV ×2 (15:25→15:26)
[2021-11-05] MEDS: Tamsulosin HCL 0.4 MG CAPSULE PO ×2 (15:25→21:15)
[2021-11-05] MEDS: Ketorolac Tromethamine 30 MG/ML VIAL IVPUSH (15:25)
[2021-11-05 16:53] LABS: ~Lactic Acid-LAB USE ONLY 0.8 mmol/L (0.5-2.0)
[2021-11-05 16:57] VITALS: BP 123/60; PULSE 79; RESP 18; O2SAT 96
--- NOTE | 2021-11-05 18:08 | PC.NURSE ---
pt reporting terrible care received at [facility] STR, reports they did not put compression boots on him and left him sitting in his own urine for hours without coming to help him get changed. pt reports he has been unable to walk following his surgery. pt requesting not to go back to that facility if he still needs STR following PT eval tomrrow.
--- NOTE | 2021-11-05 18:10 | PC.NURSE ---
Cosme White (friend) phone number
--- NOTE | 2021-11-05 20:41 | PC.NURSE ---
ED provider initially order 5 mg percocet for pain. Pt receiving 10 mg percocet per med rec. Med rec completed by this RN and ordered by ED provider. 5 mg percocet charted as not given; pt will receive 10 mg dose.
[2021-11-05] MEDS: Nicotine 14 MG PATCH.TD24 TRANSDERMA (21:13)
[2021-11-05] MEDS: Folic Acid 1 MG TABLET PO (21:14)
[2021-11-05] MEDS: lisinopriL 10 MG TABLET 30 MG PO (21:14)
[2021-11-05] MEDS: Baclofen 20 MG TABLET 40 MG PO (21:14)
[2021-11-05] MEDS: Temazepam 15 MG CAPSULE 30 MG PO (21:14)
[2021-11-05] MEDS: oxyCODONE HCl Immed Release 5 MG TABLET 10 MG PO (21:15)
[2021-11-05 21:18] VITALS: BP 126/71; PULSE 87; RESP 16; O2SAT 97
[2021-11-05] MEDS: Cyanocobalamin (Vitamin B-12) 100 MCG TABLET 50 MCG PO (21:41)
[2021-11-05] MEDS: Celecoxib 200 MG CAPSULE PO (21:41)
[2021-11-06 00:03] VITALS: BP 133/57; PULSE 67; RESP 18; O2SAT 95
[2021-11-06 02:27] VITALS: RESP 18
[2021-11-06] MEDS: oxyCODONE HCl Immed Release 5 MG TABLET 10 MG PO ×3 (02:40→14:23)
[2021-11-06 05:12] VITALS: BP 138/68; PULSE 74; RESP 18; O2SAT 95
[2021-11-06] MEDS: Folic Acid 1 MG TABLET PO (09:13)
[2021-11-06] MEDS: Nicotine 14 MG PATCH.TD24 TRANSDERMA (09:13)
[2021-11-06] MEDS: Docusate Sodium 100 MG CAPSULE PO (09:13)
[2021-11-06 09:56] LABS: COVID-19 Test Negative (Negative); IDNOW Serial# 16C4AD1C
[2021-11-06 10:18] VITALS: BP 138/68; PULSE 74; O2SAT 95
[2021-11-06] MEDS: Celecoxib 200 MG CAPSULE PO (10:35)
[2021-11-06] MEDS: Cyanocobalamin (Vitamin B-12) 100 MCG TABLET 50 MCG PO (10:35)
--- NOTE | 2021-11-06 10:53 | MHC.CM.ED ---
Addendum entered by Chio Ward 11/06/21 13:09: Pt very fixated on pain medication with conversation continuously being diverted to his assurance that he will get pain medication at the SNF. Pt accepted to [facility] booked for next call (as soon as a team is available) Pt completed a HCP which was faxed to [facility]. ED Care team updated on d/c. Original Note: Pt presents from [facility] following R TKA here last week. Pt verbalizes a multitude of issues with facility and is requesting a referral to a new STR. PT continues to support STR. Pt is normally fairly independent at baseline with [facility] for skilled RN visits and [facility] for 2x weekly housekeeping services. Pt uses a CPAP, walker/cane and has some assistance with transportation from friends. Very broad referrals placed - awaiting acceptance.
--- NOTE | 2021-11-06 14:25 | PC.NURSE ---
pt medicated for rt knee pain 8-10/28 float nurse
--- NOTE | 2021-11-06 14:25 | PC.NURSE ---
pt refusing lunch
[2021-11-06] MEDS: Acetaminophen 325 MG TABLET 650 MG PO (14:27)
--- NOTE | 2021-11-06 14:30 | PC.NURSE ---
pt medicated with tylenol as well per pt request
== END 2021-11-06 16:59 | disposition skilled nursing facility (03) ==
PROVIDERS: Nurse Practitioner Family; Physician Assistant; Emergency Provider Emergency Medicine; PCP Internal Medicine
DX: R60.0 Localized edema (principal); M79.604 Pain in right leg; I10 Essential (primary) hypertension; M25.561 Pain in right knee; R26.2 Difficulty in walking, not elsewhere classified; Z20.822 Contact with and (suspected) exposure to COVID-19; Z79.899 Other long term (current) drug therapy; F17.210 Nicotine dependence, cigarettes, uncomplicated; Z71.6 Tobacco abuse counseling
CPT/HCPCS: 36415; 73564; 73590; 80053; 81001; 83605; 85007; 85027; 85610; 85652; 85730; 86140; 87040; 87635; 93971; 96365; 96366; 96367; 96375; 97162; 99284; 99285; J0696; J1885; J2270; J3370

== ENCOUNTER → 2021-11-16 15:32 | Outpatient (BNVA) | payer MEDICARE, MEDICAID, SELFPAY | PROVIDERS: PCP Internal Medicine; Visit Provider Physician Assistant | DX: Z47.1 Aftercare following joint replacement surgery (principal); Z96.651 Presence of right artificial knee joint | CPT/HCPCS: 99212 ==

== ENCOUNTER 2021-12-21 08:57 | Outpatient (REF) | payer MEDICARE, MEDICAID, SELFPAY ==
--- NOTE | ~2021-12-21 | XR_ITS ---
EXAMINATION: XR KNEE, RIGHT XR KNEE AP STANDING CLINICAL INFORMATION: Pain. COMPARISON: Radiographs dated 11/05/2021. TECHNIQUE: AP and lateral views of the right knee. AP bilateral standing view of the knees was obtained. FINDINGS: Prosthetic components of the right total knee arthroplasty are appropriately aligned without periprosthetic fracture or lucency. No component migration. No joint effusion. There are right femoral, popliteal and infrapopliteal atherosclerotic calcifications. There is moderately severe asymmetric narrowing of the medial joint space compartment of the left knee, and the lateral joint space compartment is well-maintained, with slight peripheral osteophyte formation. There is a secondary moderate valgus configuration of the left knee. XR/XR knee standing BI IMPRESSION: 1. Appropriate alignment of the right total knee arthroplasty without evidence of complications. 2. There is moderately severe degenerative change of the medial joint space compartment of the left knee. This is secondary moderate valgus configuration of the left knee.
--- NOTE | ~2021-12-21 | XR_ITS ---
EXAMINATION: XR KNEE, RIGHT XR KNEE AP STANDING CLINICAL INFORMATION: Pain. COMPARISON: Radiographs dated 11/05/2021. TECHNIQUE: AP and lateral views of the right knee. AP bilateral standing view of the knees was obtained. FINDINGS: Prosthetic components of the right total knee arthroplasty are appropriately aligned without periprosthetic fracture or lucency. No component migration. No joint effusion. There are right femoral, popliteal and infrapopliteal atherosclerotic calcifications. There is moderately severe asymmetric narrowing of the medial joint space compartment of the left knee, and the lateral joint space compartment is well-maintained, with slight peripheral osteophyte formation. There is a secondary moderate valgus configuration of the left knee. XR/XR knee RT 2V IMPRESSION: 1. Appropriate alignment of the right total knee arthroplasty without evidence of complications. 2. There is moderately severe degenerative change of the medial joint space compartment of the left knee. This is secondary moderate valgus configuration of the left knee.
== END 2021-12-21 08:58 | disposition home or self-care (01) ==
LOC: HO.HOSX 08:57
PROVIDERS: Visit Provider Orthopaedic Surgery
DX: M66.251 Spontaneous rupture of extensor tendons, right thigh (principal); Z96.651 Presence of right artificial knee joint
CPT/HCPCS: 73560; 73565; 99212

== ENCOUNTER 2021-12-26 10:01 | Day surgery (SDC) | payer MEDICARE, MEDICAID, SELFPAY ==
--- NOTE | 2021-12-25 13:14 | HO.ANESPROP2 ---
Documented by User: Brandy Weaver NP 12/25/21 13:17 HPI - Anesthesia Eval Consult details Narrative: 71yo M for Right Quadricep Repair s/p R TKA 10/31/21 with GA-LMA 5 PMFSH Active Problems Active Problems: All Active Problems (Updated 12/21/21 @ 16:24 by Kel Bradford) Nontraumatic tear of quadriceps tendon (Acute) Status post total knee replacement, right (Acute) Bilateral post-traumatic osteoarthritis of knee (Acute) Vascular insufficiency of extremity (Acute) Varicose veins of right lower extremity with inflammation (Acute) Lymphedema (Acute) Insomnia (Acute) Colonoscopy refused (Acute) Hyperlipidemia (Acute) OA (osteoarthritis) of knee (Acute) HTN (hypertension) (Acute) Prostate CA (Acute) Central sleep apnea (Acute) Past Medical History Medical History Central sleep apnea Colonoscopy refused HTN (hypertension) Hyperlipidemia Insomnia OA (osteoarthritis) of knee Osteoarthritis of right knee Prostate CA Venous insufficiency of both lower extremities Family History Family History Father Family history of cancer Mother CHF (congestive heart failure) Mental health disorder Family history of problems with anesthesia: No Surgical History Surgical History H/O wisdom tooth extraction History of Problems with Anesthesia: No Social History Social History Housing: Apartment Are you a primary direct support professional caregiver to a significant other at home: No Do you presently have visiting nurse or other home services: No Alcohol intake: current Alcohol intake frequency: holidays/special occasions only Alcohol type: hard liquor Patient Tobacco Use Status: Former Tobacco user Quit Date: 2 MTHS AGO Tobacco use type: Cigarette Cigarettes Per Day: 10 Years Smoked: 52 e-Cigarette/Vaping Use: Former Use Are you DNR?: No Advance Directives: No Nutrition Risks: No Nutritional Risk service: No Current occupational status: retired Meds Allergies Allergy/AdvReac Type Severity Reaction Status Date / Time atropine AdvReac Intermediate panic Verified 11/16/21 15:38 attack [id number]-AIV-[id number] Reductase AdvReac Intermediate hematuria/ thick Verified 11/16/21 15:38 Inhibitor semen Bee stings Allergy Severe anaphylaxis Uncoded 11/16/21 15:38 urinary catheter AdvReac Intermediate panic Uncoded 11/16/21 15:38 attack Home Medications Medication Instructions Recorded Confirmed Last Taken Type baclofen 20 mg tablet 40 mg PO BEDTIME 09/13/20 12/26/21 12/24/21 History finasteride 5 mg tablet 5 mg PO QPM 09/13/20 12/26/21 12/25/21 History lisinopril 30 mg tablet 30 mg PO BEDTIME 09/13/20 12/26/21 12/25/21 History tamsulosin 0.4 mg capsule 0.4 mg PO BEDTIME 09/13/20 12/26/21 12/25/21 History temazepam 30 mg capsule 30 mg PO BEDTIME PRN insomnia 09/13/20 12/26/21 12/25/21 History cyanocobalamin (vitamin B-12) 50 50 mcg PO DAILY 10/17/21 12/26/21 12/25/21 History mcg tablet (Vitamin B-12) folic acid 1 mg tablet 1 mg PO DAILY 10/17/21 12/26/21 12/25/21 History furosemide 20 mg tablet (Lasix) 20 mg PO QAM PRN Edema 10/17/21 12/26/21 12/25/21 History Exam Exam Date and Time: December 25, 2021 1314 Pertinent Lab Results Pertinent Lab Results: Laboratory Tests 11/05/21 11/05/21 13:02 13:02 WBC 6.0 Hgb 10.6 L Hct 31.4 L Plt Count 254 D Sodium 139 Potassium 4.0 Chloride 100 Carbon Dioxide 27 BUN 24 H D Creatinine 1.00 Narrative Narrative: EKG 08/2021 Vent. Rate : 069 BPM ? ? Atrial Rate : 069 BPM ?? P-R Int : 194 ms? QRS Dur : 088 ms ? ? QT Int : 400 ms ? ? ? P-R-T Axes : 045 001 047 degrees ?? QTc Int : 428 ms ? Normal sinus rhythm Normal ECG No previous ECGs available Assessment and Plan Assessment Anesthesia Assessment: Chart Reviewed Final Anesthetic Review Family History of Problems with Anesthesia: No History of Problems with Anesthesia: No Documented by User: Julio Roldan MD 12/26/21 12:18 [facility] Past Medical History Medical History Central sleep apnea Colonoscopy refused HTN (hypertension) Hyperlipidemia Insomnia OA (osteoarthritis) of knee Osteoarthritis of right knee Prostate CA Venous insufficiency of both lower extremities Family History Family History Father Family history of cancer Mother CHF (congestive heart failure) Mental health disorder Surgical History Surgical History H/O wisdom tooth extraction Social History Social History Housing: Apartment Are you a primary direct support professional caregiver to a significant other at home: No Do you presently have visiting nurse or other home services: No Alcohol intake: current Alcohol intake frequency: holidays/special occasions only Alcohol type: hard liquor Patient Tobacco Use Status: Former Tobacco user Quit Date: 2 MTHS AGO Tobacco use type: Cigarette Cigarettes Per Day: 10 Years Smoked: 52 e-Cigarette/Vaping Use: Former Use Are you DNR?: No Advance Directives: No Nutrition Risks: No Nutritional Risk service: No Current occupational status: retired Meds Allergies Allergy/AdvReac Type Severity Reaction Status Date / Time atropine AdvReac Intermediate panic Verified 11/16/21 15:38 attack Orrnynn-UMK-BlN Reductase AdvReac Intermediate hematuria/ thick Verified 11/16/21 15:38 Inhibitor semen Bee stings Allergy Severe anaphylaxis Uncoded 11/16/21 15:38 urinary catheter AdvReac Intermediate panic Uncoded 11/16/21 15:38 attack Home Medications Medication Instructions Recorded Confirmed Last Taken Type baclofen 20 mg tablet 40 mg PO BEDTIME 09/13/20 12/26/21 12/24/21 History finasteride 5 mg tablet 5 mg PO QPM 09/13/20 12/26/21 12/25/21 History lisinopril 30 mg tablet 30 mg PO BEDTIME 0712/26/21 12/25/21 History tamsulosin 0.4 mg capsule 0.4 mg PO BEDTIME 09/13/20 12/26/21 12/25/21 History temazepam 30 mg capsule 30 mg PO BEDTIME PRN insomnia 09/13/20 12/26/21 12/25/21 History cyanocobalamin (vitamin B-12) 50 50 mcg PO DAILY 10/17/21 12/26/21 12/25/21 History mcg tablet (Vitamin B-12) folic acid 1 mg tablet 1 mg PO DAILY 10/17/21 12/26/21 12/25/21 History furosemide 20 mg tablet (Lasix) 20 mg PO QAM PRN Edema 10/17/21 12/26/21 12/25/21 History Exam Airway Mallampati Class: III TM Dist: >3cm Neck ROM: Full Loose/Missing/Broken Teeth: Yes (no upper teeth, 5 lower poor teeth) Heart: rrr+[id number] Lungs: cta b/l Assessment and Plan Assessment Anesthesia Assessment: Anesthesia Plan Discussed Final Anesthetic Review NPO: Yes ASA Class: III Final Preanesthetic Review: No Changes in Pt Med Stat, Meds/Allgs Chart Reviewed, Consent Obtained/Reviewed and Anes Risks/Benef Reviewed Patient Risk: Intermediate Procedure Risk: Intermediate Assessment/Block/Sedation in SS: Assess/Block/Sedation-SS Anesthetic Plan Anesthetic Plan: GA, Regional Block and Agree w/ Assess. and Plan Disposition: Standard PACU
[2021-12-26] VITALS (16 sets, daily range): BP systolic 109–157; BP diastolic 46–80; PULSE 53–76; RESP 16–18; TEMP 36.1–36.9; O2SAT 95–98; BMI 41.5
[2021-12-26] MEDS: Lactated Ringers 1,000 ML 100 ML IVCONT ×2 (10:51→15:22)
[2021-12-26 11:01] LABS: COVID-19 Test Negative (Negative)
[2021-12-26] MEDS: ceFAZolin Sodium/Dextrose,Iso 2 GM/50 ML PIGGYBACK IV ×2 (12:45→20:07)
[2021-12-26] MEDS: oxyCODONE HCl Immed Release 5 MG TABLET 10 MG PO ×2 (14:00→21:36)
[2021-12-26] MEDS: Acetaminophen 325 MG TABLET 650 MG PO (14:01)
[2021-12-26] MEDS: fentaNYL citrate/PF 100 MCG/2 ML VIAL 50 MCG IVPUSH ×2 (14:02→14:09)
[2021-12-26] MEDS: HYDROmorphone HCl 0.5 MG/0.5 ML SYRINGE IVPUSH ×2 (14:28→16:28)
[2021-12-26] MEDS: HYDROmorphone HCl 0.5 MG/0.5 ML SYRINGE 0.25 MG IVPUSH (18:56)
[2021-12-26] MEDS: Nicotine 14 MG PATCH.TD24 TRANSDERMA (19:57)
[2021-12-26] MEDS: Baclofen 20 MG TABLET 40 MG PO (20:04)
[2021-12-26] MEDS: Finasteride 5 MG TABLET PO (20:04)
[2021-12-26] MEDS: Celecoxib 200 MG CAPSULE PO (20:04)
[2021-12-26] MEDS: Tamsulosin HCL 0.4 MG CAPSULE PO (20:05)
[2021-12-26] MEDS: Temazepam 15 MG CAPSULE 30 MG PO (20:42)
[2021-12-26] MEDS: oxyCODONE HCl ER 10 MG TAB.ER.12H PO (20:43)
[2021-12-27] VITALS (7 sets, daily range): BP systolic 100–139; BP diastolic 57–67; PULSE 63–66; RESP 17–18; TEMP 35.3–36.4; O2SAT 96–97
[2021-12-27] MEDS: HYDROmorphone HCl 0.5 MG/0.5 ML SYRINGE 0.25 MG IVPUSH ×3 (00:16→10:27)
[2021-12-27] MEDS: oxyCODONE HCl Immed Release 5 MG TABLET 10 MG PO ×3 (02:17→13:14)
[2021-12-27] MEDS: Acetaminophen 325 MG TABLET 650 MG PO (03:37)
[2021-12-27 05:52] LABS: Hematocrit 31.9 % (42.0-52.0); Hemoglobin 10.3 g/dl (14.0-18.0); Mean Corpuscular HGB Conc 32.3 g/dl (31.0-36.0); Mean Corpuscular Volume 99.1 fL (80.0-98.0); Mean Platelet Volume 12.3 fL (9.4-12.4); Platelet Count 245 X10*3/uL (160-400); Red Blood Count 3.22 X10*6/uL (4.60-5.80); Red Cell Distribution Width 15.9 % (11.0-16.0)
[2021-12-27 05:53] LABS: WBC ABN SCTR FOR CBC 1; White Blood Count 7.8 X10*3/uL (4.8-10.8)
[2021-12-27 06:14] LABS: Anion Gap 11 (12-20); Blood Urea Nitrogen 16 mg/dL (9-16); Calcium 8.7 mg/dL (8.4-10.2); Carbon Dioxide 27 mmol/L (22-29); Chloride 106 mmol/L (96-108); Creatinine Clr Calc Pharmacy 99.1; Estimated Glomerular Filt Rate > 60; Glucose Fasting 90 mg/dL (60-99); Potassium 4.9 mmol/L (3.3-5.1); Sodium 139 mmol/L (135-145)
[2021-12-27 06:15] LABS: Band Neutrophils Percent 2 % (3-5); Basophils Abs Manual 0.2 X10*3/uL (0.0-0.2); Basophils Percent Manual 2 % (0-2); Burr Cells 1+ (0-2) /OIF; Eosinophils Absolute Manual 0.1 X10*3/uL (0.0-0.4); Eosinophils Percent Manual 1 % (0-4); Large Platelet PRESENT; Lymphocytes Absolute Manual 0.5 X10*3/uL (1.2-4.9); Lymphocytes Percent Manual 6 % (20-40); Macrocytosis 1+ (5-14) /OIF; Monocytes Absolute Manual 0.2 X10*3/uL (0.1-1.2); Monocytes Percent Manual 2 % (2-11); Neutrophils Absolute Manual 6.9 X10*3/uL (2.0-8.3); Neutrophils Percent Manual 87 % (45-73); Platelet Estimate NORMAL (NORMAL); Platelet Morphology Comment NORMAL; Polychromasia 1+ (0-2) /OIF; RBC Morphology NOTED; Smudge Cells PRESENT; Toxic Vacuolation PRESENT
[2021-12-27] MEDS: oxyCODONE HCl ER 10 MG TAB.ER.12H PO (07:58)
[2021-12-27] MEDS: Folic Acid 1 MG TABLET PO (08:00)
[2021-12-27] MEDS: Cyanocobalamin (Vitamin B-12) 100 MCG TABLET 50 MCG PO (08:00)
[2021-12-27] MEDS: Celecoxib 200 MG CAPSULE PO (08:00)
[2021-12-27] MEDS: Nicotine 14 MG PATCH.TD24 TRANSDERMA (08:01)
--- NOTE | 2021-12-27 09:42 | MHC.CM.PN ---
IMM 12/27/21, EMR REVIEWED, PT ADMITTED S/P QUAD TENDON REPAIR, CM MET W/PT WHO REPORTS HE LIVES ALONE, USES A BIPAP AND WALKER FOR DME, PT ALSO HAS A CANE HOWEVER IS CURRENTLY USING A WALKER ONLY, PT REPORTS HE HAD BEEN GOING TO [facility] [place] [facility] [place] FOR OUTPT PT AND WOULD LIKE TO RESUME THAT WHEN HE DISCHARGES, PT AGREEABLE TO HOME PT IF RECOMMENDED BY PT. PT VERIFIES PCP IS DEJAN GAINES AND REPORTS PCP WOULD LIKE D/C SUMMARY FAXED TO HIS OFFICE, [facility] X5 AND HCP IS TERRY MONTEIRO [phone] AND COPY ON FILE FROM PREVIOUS ADMIT. ANTIC D/C HOME NO SERVICES ONCE MEDICALLY CLEARED, PT'S FRIEND WILL TRANSPORT
--- NOTE | 2021-12-27 10:18 | HO.PM.IMCN ---
History of Present Illness Data of Consult Service Date: 12/27/21 Requesting physician: Kyle Queen Primary Care Provider: Shay Gorman MD [facility] Reason for consult: medical management htn, apnea 71-year-old male with history of hypertension, history of prostate cancer, central sleep apnea compliant with BiPAP, hyperlipidemia, venous insufficiency, s/p right TKR 10/31/2021 who is a former smoker admitted to Orthopedics for right quadriceps tendon rupture s/p repair POD #1 with consult placed for medical management. Reports pain is well controlled. He has no complaints at this time and is asking for breakfast. Compliant with BiPAP last night. Review of Systems Review of Systems: General: No fevers, malaise, unintentional weight loss HEENT: No blurred vision, diplopia Cardiovascular: No chest pain, palpitations, or leg edema Respiratory: No shortness of breath, wheezing, cough GI: No abdominal pain, nausea, vomiting, diarrhea, constipation, melena, hematochezia : No dysuria, hematuria, increased urinary frequency MSK: +right thigh/knee pain Neuro: No headaches, weakness, paresthesias Skin: No rashes or lesions [facility] Medical History Central sleep apnea Colonoscopy refused HTN (hypertension) Hyperlipidemia Insomnia OA (osteoarthritis) of knee Osteoarthritis of right knee Prostate CA Venous insufficiency of both lower extremities Family History Father Family history of cancer Mother CHF (congestive heart failure) Mental health disorder Surgical History (Updated 12/27/21 @ 10:19 by NINFA Cardenas) H/O wisdom tooth extraction S/P tendon repair Social History Housing: Apartment Are you a primary lead care manager to a significant other at home: No Do you presently have visiting nurse or other home services: No Alcohol intake: current Alcohol intake frequency: holidays/special occasions only Alcohol type: hard liquor Patient Tobacco Use Status: Former Tobacco user Quit Date: 2 MTHS AGO Tobacco use type: Cigarette Cigarettes Per Day: 10 Years Smoked: 52 e-Cigarette/Vaping Use: Former Use service: Yes Current occupational status: retired Meds Allergies Allergy/AdvReac Type Severity Reaction Status Date / Time atropine AdvReac Intermediate panic Verified 11/16/21 15:38 attack Nabggvm-CJM-YtT Reductase AdvReac Intermediate hematuria/ thick Verified 11/16/21 15:38 Inhibitor semen Bee stings Allergy Severe anaphylaxis Uncoded 11/16/21 15:38 urinary catheter AdvReac Intermediate panic Uncoded 11/16/21 15:38 attack Active Medications: Current Medications Acetaminophen (Acetaminophen 325 Mg Tablet) 650 mg PO Q6H PRN PRN Reason: Pain, Mild (Pain Scale 1-3) Last Admin: 12/27/21 03:37 Dose: 650 mg Aspirin (Aspirin 325 Mg Tablet) 325 mg PO BID [facility] Baclofen (Baclofen 20 Mg Tablet) 40 mg PO BEDTIME [facility] Last Admin: 12/26/21 20:04 Dose: 40 mg Celecoxib (Celecoxib 200 Mg Capsule) 200 mg PO BID [facility] Last Admin: 12/27/21 08:00 Dose: 200 mg Cyanocobalamin (Cyanocobalamin (Vitamin B-12) 100 Mcg Tablet) 50 mcg PO DAILY [facility] Last Admin: 12/27/21 08:00 Dose: 50 mcg Docusate Sodium (Docusate Sodium 100 Mg Capsule) 100 mg PO BID [facility] Last Admin: 12/27/21 08:03 Dose: Not Given Finasteride (Finasteride 5 Mg Tablet) 5 mg PO BEDTIME [facility] Last Admin: 12/26/21 20:04 Dose: 5 mg Folic Acid (Folic Acid 1 Mg Tablet) 1 mg PO DAILY [facility] Last Admin: 12/27/21 08:00 Dose: 1 mg Furosemide (Furosemide 20 Mg Tablet) 20 mg PO DAILY PRN; Protocol PRN Reason: Edema Hydromorphone HCl (Hydromorphone Hcl 0.5 Mg/0.5 Ml Syringe) 0.25 mg IVPUSH Q4H PRN; Protocol PRN Reason: Pain, Severe (Pain Scale 7-10) Last Admin: 12/27/21 04:17 Dose: 0.25 mg Lactated Ringer's (Lr) 1,000 mls @ 100 mls/hr IVCONT .Q10H [facility] Stop: 12/27/21 15:14 Last Infusion: 12/27/21 05:51 Dose: Infused Nicotine (Nicotine 14 Mg Patch.Td24) 14 mg TRANSDERMA DAILY [facility] Last Admin: 12/27/21 08:01 Dose: 14 mg Ondansetron HCl (Ondansetron Hcl 4 Mg/2 Ml Vial) 4 mg IVPUSH Q8H PRN PRN Reason: Nausea and Vomiting Oxycodone HCl (Oxycodone Hcl Immed Release 5 Mg Tablet) 10 mg PO Q4H PRN PRN Reason: Pain, Moderate (Pain Scale 4-6 Last Admin: 12/27/21 06:40 Dose: 10 mg Oxycodone HCl (Oxycodone Hcl Er 10 Mg Tab.Er.12h) 10 mg PO BID [facility] Last Admin: 12/27/21 07:58 Dose: 10 mg Sodium Chloride (0.9 % Sodium Chloride Flush 3 Ml Syringe) 3 ml IVFLUSH QSHIFT [facility] Last Admin: 12/27/21 08:15 Dose: Not Given Tamsulosin HCl (Tamsulosin Hcl 0.4 Mg Capsule) 0.4 mg PO BEDTIME [facility] Last Admin: 12/26/21 20:05 Dose: 0.4 mg Temazepam (Temazepam 15 Mg Capsule) 30 mg PO BEDTIME PRN PRN Reason: insomnia Last Admin: 12/26/21 20:42 Dose: 30 mg Home Medications Medication Instructions Recorded Confirmed Last Taken Type baclofen 20 mg tablet 40 mg PO BEDTIME 09/13/20 12/26/21 12/24/21 History finasteride 5 mg tablet 5 mg PO QPM 09/13/20 12/26/21 12/25/21 History lisinopril 30 mg tablet 30 mg PO BEDTIME 09/13/20 12/26/21 12/25/21 History tamsulosin 0.4 mg capsule 0.4 mg PO BEDTIME 09/13/20 12/26/21 12/25/21 History temazepam 30 mg capsule 30 mg PO BEDTIME PRN insomnia 09/13/20 12/26/21 12/25/21 History cyanocobalamin (vitamin B-12) 50 50 mcg PO DAILY 10/17/21 12/26/21 12/25/21 History mcg tablet (Vitamin B-12) folic acid 1 mg tablet 1 mg PO DAILY 10/17/21 12/26/21 12/25/21 History furosemide 20 mg tablet (Lasix) 20 mg PO QAM PRN Edema 10/17/21 12/26/21 12/25/21 History Physical Exam Vital Signs and Narrative: Vital Signs: Last Vital Signs Temp 97.4 F 12/27/21 07:13 Pulse 65 12/27/21 09:26 Resp 18 12/27/21 07:13 BP 139/65 12/27/21 09:26 Pulse Ox 97 12/27/21 09:26 O2 Del Method 12/27/21 07:13 O2 Flow Rate 2 12/26/21 14:52 BMI result Body Mass Index 41.5 Constitutional - Awake and Alert, No apparent distress Eyes - PERRLA, EOMI Cardiovascular - S1S2, RRR, 1+ble edema Respiratory - Normal lung expansion, Normal respiratory effort, No respiratory distress, CTA bilaterally Gastrointestinal - NT / ND; +BS; No rebound or guarding Extremities - no calf tenderness bilaterally, no swelling Musculoskeletal - Right knee with compression banadage without surrounding erythema warmth, swwelling Skin - Warm/Dry. venous stasis dermatitis ble Neurological - Alert & oriented x3 Psychological - Appropriate affect Results Labs CBC and Chem 7: 12/27/21 05:08 12/27/21 05:08 Labs: Laboratory Results - last 24 hr 12/26/21 12/27/21 12/27/21 10:57 05:08 05:08 MCV 99.1 H MCH 32.0 MCHC 32.3 RDW 15.9 Plt Count 245 MPV 12.3 Immature Gran % (Auto) Cancelled Neut % (Auto) Cancelled Lymph % (Auto) Cancelled Wolfe % (Auto) Cancelled Eos % (Auto) Cancelled Baso % (Auto) Cancelled Lymph # (Auto) Cancelled Wolfe # (Auto) Cancelled Eos # (Auto) Cancelled Baso # (Auto) Cancelled Abs Immat Gran (auto) Cancelled Absolute Neuts (auto) Cancelled Absolute Nucleated RBC 0.000 Nucleated RBC % (auto) 0.0 Neutrophils % (Manual) 87 H Band Neutrophils % 2 L Lymphocytes % (Manual) 6 L Monocytes % (Manual) 2 Eosinophils % (Manual) 1 Basophils % (Manual) 2 Abs Neuts (Manual) 6.9 Lymphocytes # (Manual) 0.5 L Monocytes # (Manual) 0.2 Eosinophils # (Manual) 0.1 Basophils # (Manual) 0.2 Smudge Cells PRESENT Toxic Vacuolation PRESENT Platelet Estimate NORMAL Large Platelets PRESENT Plt Morphology Comment NORMAL RBC Morphology NOTED Polychromasia 1+ (0-2) Macrocytosis 1+ (5-14) [place] Cells 1+ (0-2) Anion Gap 11 L Estim Creat Clear Calc 99.1 Estimated GFR > 60 Fasting Glucose 90 Calcium 8.7 COVID-19 (RAVEN) Negative COVID-19 Clin Com See Note Assessment and Plan (1) Nontraumatic tear of quadriceps tendon: Status: Acute (2) Status post total knee replacement, right: Status: Acute Plan 71-year-old male with history of hypertension, history of prostate cancer, central sleep apnea compliant with BiPAP, hyperlipidemia, venous insufficiency who is a former smoker admitted to Orthopedics for right quadriceps tendon rupture s/p repair POD #1 s/p right TKR with consult placed for medical management. # quadriceps tendon rupture s/p tendon repair pod 1 s/p TKR -plan per Orthopedics # central sleep apnea -continue BiPAP at bedtime # hypertension-controlled -continue lisinopril, Lasix # venous insufficiency -continue Lasix -leg elevation # BPH/history of prostate cancer -continue finasteride and Flomax # insomnia -continue to diazepam at bedtime Thank you for this consult. Will continue following. Dispo per ortho
--- NOTE | 2021-12-27 12:10 | HO.POSTANES ---
Post Anesthesia Evaluation Post Anesthesia Evaluation Vital Signs: Vital Signs Temp Pulse Resp BP Pulse Ox O2 Del Method 12/27/21 11:25 64 118/58 L 96 12/27/21 11:08 95.6 F L 64 18 118/58 L 96 Room Air 12/27/21 09:26 65 139/65 97 12/27/21 07:13 97.4 F 65 18 139/65 97 Room Air 12/27/21 04:00 97.2 F 66 17 100/57 L 96 Room Air Anesthesia: Nerve Block and General Mental Status: Awake Pain Control: Satisfactory Nausea/Vomiting: None Hydration: Adequate Anesthesia-Related Issues: No Anes. Related Issues
[2021-12-27] MEDS: Aspirin 325 MG TABLET PO (13:15)
--- NOTE | 2021-12-28 13:55 | W.MHC.F2F ---
Service Date Service Date: 12/28/21 Encounter Date of encounter: 12/27/21 Reasons for Services Signs and symptoms assessed: Pt. is considered homebound due to recent surgery. Unable to drive, poor balance, poor gait mechanics. Reason for physical therapy: home safety and mobility, therapeutic exercises, restore joint function, gait/transfer training, assess need for DME and ADL training Homebound: Leaving the home is medically contraindicated at this time without the asist of a device and/or another person due th the listed conditions above and below. Reason homebound: unsteady gait / fall risk, leg weakness, pain with ambulation and unable to drive Homebound supporting statement: Pt. is considered homebound due to recent surgery. Unable to drive, poor balance, poor gait mechanics. Certification: Based on the above findings, I certify that this patient is confined to the home and needs intermittent custodial care, physical therapy and/or speech therapy, or continues to need occupational therapy. The patient is under my care, and I have initiated the establishment of the plan of care. The patient will be followed by a physician who will periodically review the plan of care.
--- NOTE | 2022-01-10 10:46 | P.BOP_ITS ---
Brief Operative Note Date of Service: 12/26/21 Pre-op diagnosis: Right knee quad tear Post-op diagnosis: other (Right knee quadriceps tear) Procedure: Right knee quad repair Surgeon: Stephan Capellan MD Anesthesia: GETA and regional Was an Proposal Director used for this Procedure?: Yes Proposal Director: Kyle Queen Estimated blood loss (mL): 5 Tourniquet time (min): 30 IV fluids (mL): 800 Pathology: none sent Condition: stable Disposition: PACU
--- NOTE | 2022-01-10 10:48 | W.PM.OPN ---
Operative Note Operative Note Date of Service: 12/26/21 Narrative: Date of Service: 12/26/21 Pre-op diagnosis: Right knee quad tear Post-op diagnosis: other (Right knee quadriceps tear) Procedure: Right knee quad repair Surgeon: Stephan Capellan MD Anesthesia: GETA and regional Was an Lead Systems Analyst used for this Procedure?: Yes Lead Systems Analyst: Kyle Queen Estimated blood loss (mL): 5 Tourniquet time (min): 30 IV fluids (mL): 800 Pathology: none sent Condition: stable Disposition: PACU Procedure in detail: The patient was brought to the operating room and prepped and draped in standard sterile fashion. A time-out was called to identify proper site proper procedure proper surgeon and IV antibiotics were administered. I began by making a midline incision throught the prior incision. There was a tear through the paripatellar arthrotomy involving the vmo insertion and extending up the quad tendon about 3-4 cm. There was no evidence of infection. I removed any loose suture and then irrigated with warm saline. I then used a quill suture to re-approximate the tendon to its anatomic location and restore the normal retinacular and quadriceps anatomy. there was no retraction and once the retinaculum and quadriceps were repaired there was full ROM without dehiscence. The knee was then closed with a 3 0 Vicryl and becka on the skin. Patient was then placed in sterile dressing and brought to recovery room in stable condition there were no known complications.
== END 2021-12-27 15:30 | disposition home health service (06) ==
LOC: HO.SSS 10:30 → HO.S3 16:58
PROVIDERS: Physician Assistant; PCP Internal Medicine; Visit Provider Orthopaedic Surgery
PROC: (CPT 27386; principal; 2021-12-26 12:40)
DX: M66.251 Spontaneous rupture of extensor tendons, right thigh (principal); M79.89 Other specified soft tissue disorders; R26.89 Other abnormalities of gait and mobility; Z91.81 History of falling; Z96.651 Presence of right artificial knee joint; I10 Essential (primary) hypertension; I87.2 Venous insufficiency (chronic) (peripheral); E78.5 Hyperlipidemia, unspecified; C61 Malignant neoplasm of prostate; G47.33 Obstructive sleep apnea (adult) (pediatric); Z99.89 Dependence on other enabling machines and devices; Z79.1 Long term (current) use of non-steroidal anti-inflammatories (NSAID); Z79.899 Other long term (current) drug therapy; Z88.8 Allergy status to other drugs, medicaments and biological substances; Z87.891 Personal history of nicotine dependence; Z20.822 Contact with and (suspected) exposure to COVID-19
CPT/HCPCS: 27386; 36415; 80048; 85007; 85027; 87635; 97116; 97161; 97530; J0690; J1100; J1170; J2250; J2405; J2795; J3010

== ENCOUNTER → 2022-01-15 14:18 | Outpatient (BNVA) | payer MEDICARE, MEDICAID, SELFPAY | PROVIDERS: PCP Internal Medicine; Visit Provider Physician Assistant | DX: Z47.89 Encounter for other orthopedic aftercare (principal); Z87.39 Personal history of other diseases of the musculoskeletal system and connective tissue | CPT/HCPCS: 99212 ==

== ENCOUNTER → 2022-01-18 15:08 | Outpatient (BNVA) | payer MEDICARE, MEDICAID, SELFPAY | PROVIDERS: PCP Internal Medicine; Visit Provider Orthopaedic Surgery | DX: Z47.89 Encounter for other orthopedic aftercare (principal); Z87.39 Personal history of other diseases of the musculoskeletal system and connective tissue | CPT/HCPCS: 99212 ==

== ENCOUNTER → 2022-01-25 15:04 | Outpatient (BNVA) | payer MEDICARE, MEDICAID, SELFPAY | PROVIDERS: PCP Internal Medicine; Visit Provider Orthopaedic Surgery | DX: Z47.89 Encounter for other orthopedic aftercare (principal); M66.251 Spontaneous rupture of extensor tendons, right thigh | CPT/HCPCS: 99212 ==

== ENCOUNTER → 2022-01-29 14:55 | Outpatient (BNVA) | payer MEDICARE, MEDICAID, SELFPAY | PROVIDERS: PCP Internal Medicine; Visit Provider Orthopaedic Surgery | DX: Z47.89 Encounter for other orthopedic aftercare (principal); M66.251 Spontaneous rupture of extensor tendons, right thigh; Z87.39 Personal history of other diseases of the musculoskeletal system and connective tissue | CPT/HCPCS: 99212 ==

== ENCOUNTER → 2022-02-05 15:27 | Outpatient (BNVA) | payer MEDICARE, MEDICAID, SELFPAY | PROVIDERS: PCP Internal Medicine; Visit Provider Physician Assistant | DX: M66.251 Spontaneous rupture of extensor tendons, right thigh (principal); Z96.651 Presence of right artificial knee joint | CPT/HCPCS: 99212 ==

== ENCOUNTER → 2022-02-08 15:01 | Outpatient (BNVA) | payer MEDICARE, MEDICAID, SELFPAY | PROVIDERS: PCP Internal Medicine; Visit Provider Physician Assistant | DX: M66.251 Spontaneous rupture of extensor tendons, right thigh (principal); M17.11 Unilateral primary osteoarthritis, right knee; I87.2 Venous insufficiency (chronic) (peripheral); Z96.651 Presence of right artificial knee joint | CPT/HCPCS: 99212 ==

== ENCOUNTER → 2022-02-23 15:33 | Outpatient (BNVA) | payer MEDICARE, MEDICAID, SELFPAY | PROVIDERS: PCP Internal Medicine; Visit Provider Physician Assistant | DX: Z13.89 Encounter for screening for other disorder (principal) ==

== ENCOUNTER → 2022-03-08 15:18 | Outpatient (BNVA) | payer MEDICARE, MEDICAID, SELFPAY | PROVIDERS: PCP Internal Medicine; Visit Provider Orthopaedic Surgery | DX: M66.251 Spontaneous rupture of extensor tendons, right thigh (principal) | CPT/HCPCS: 99212 ==

== ENCOUNTER 2022-04-16 13:50 | Outpatient (REF) | payer MEDICARE, MEDICAID, SELFPAY ==
[2022-04-16 16:45] LABS: Prostate Specific Antigen 5.43 ng/mL (<0.05-4.0)
== END 2022-04-16 13:51 | disposition home or self-care (01) ==
LOC: HO.LAB 13:50
PROVIDERS: Absent Provider Physician Assistant; PCP Internal Medicine; Visit Provider Orthopaedic Surgery
DX: Z47.1 Aftercare following joint replacement surgery (principal); M25.561 Pain in right knee; R53.1 Weakness; M17.32 Unilateral post-traumatic osteoarthritis, left knee; Z96.651 Presence of right artificial knee joint; Z12.5 Encounter for screening for malignant neoplasm of prostate
CPT/HCPCS: 36415; 84153; 99212

== ENCOUNTER → 2022-05-14 15:16 | Outpatient (BNVA) | payer MEDICARE, MEDICAID, SELFPAY | PROVIDERS: PCP Internal Medicine; Visit Provider Orthopaedic Surgery | DX: M17.32 Unilateral post-traumatic osteoarthritis, left knee (principal) | CPT/HCPCS: 20610; 99212; J7318 ==

== ENCOUNTER 2022-07-05 14:00 | Outpatient (RCR) | payer MEDICARE, MEDICAID, SELFPAY ==
--- NOTE | 2022-04-05 16:41 | MHC.PT.EP ---
[facility] [place] Office [place] Office [place] Office [address] David Sorenson [address] [phone] F: [phone] F: [phone] F: [phone] F: [phone] Physical Therapy Plan of Care Date of Evaluation: Date of Surgery: Diagnosis: S/P right quadriceps tendon rupture repair DOS: 12/26/21 and right TKA DOS: 10/31/21 Assessment: Pt is a 71 y/o male referred to PT for eval and treat S/P right quadriceps tendon rupture repair performed on 12/26/21 and right TKA performed on 10/31/21. Pt's functional limitations include decreased tolerance and ability for standing and walking, performing squatting tasks and heavy HH chores, as well as getting in and out of a car secondary to decreased R knee ROM and decreased R hip and knee strength, gait abnormality, complicated and prolonged recovery, surgical healing process, and pain. Pt is deemed an appropriate candidate to receive skilled PT services to address their physical impairments in order to improve their functional ability. Frequency and Duration: The patient will be seen 2 x/ wk x 6 wks. Short Term Goals: Initiate HEP. Improve pain with activity to < 4/10; initial: 5/10. [facility] Goals: I with Home Program. Pt will negotiate therapy stairs with reciprocal pattern; initial: non reciprocal B UE support. Ambulates w symmetrical pattern w/o AD. Pt will be able to walk x 2 blocks with at most a little bit of difficulty; initial: quite a bit of difficulty. Improve R knee extension MMT by at least 1/2 MMT grade; initial: 4-/5. Treatment Plan: Modalities to reduce pain, spasms and effusion. Manual therapy to restore motion and function. Therapeutic exercise to improve strength and flexibility. Neuromuscular re-education for posture and balance. Therapeutic activities to return to functional activities of daily living. Electronically signed by: Jigar Tanner PT Please sign and return to therapist. Thank you for your referral.
== END 2022-07-05 15:56 | disposition home or self-care (01) ==
LOC: HO.PTCHIC 14:00
PROVIDERS: PCP Internal Medicine; Visit Provider Orthopaedic Surgery
DX: M66.251 Spontaneous rupture of extensor tendons, right thigh (principal); Z96.651 Presence of right artificial knee joint
CPT/HCPCS: 97110; 97161; 97530

== ENCOUNTER 2023-02-15 16:12 | Inpatient (IN) | payer MEDICARE, MEDICAID, SELFPAY ==
--- NOTE | ~2023-02-15 | CT_ITS ---
EXAMINATION: CT ABDOMEN AND PELVIS WITH CONTRAST CLINICAL INFORMATION: Pain. COMPARISON: None available. TECHNIQUE: Multidetector volumetric images were obtained from the superior aspect of the liver through the pubic symphysis following administration 100 mL of Omnipaque 350 intravenous contrast. Sagittal and coronal reformatted images were obtained on the technologist's workstation. Oral contrast: No This CT examination was performed using dose optimization techniques as appropriate, variously including the following: *Automated exposure control *Adjustment of mA and/or kV according to patient size (this includes techniques or standardized protocols for targeted exams where dose is matched to indication/reason for exam; i.e. extremities or head) *Use of iterative reconstruction technique DLP: 751 mGy-cm FINDINGS: LUNG BASES: There is atelectatic change and/or scarring at both lung bases. LIVER, GALLBLADDER, AND BILIARY TREE: The liver is normal in size, shape, and attenuation. No focal hepatic lesion or biliary ductal dilatation is present. The gallbladder is unremarkable with no evidence of radiopaque gallstones, gallbladder wall thickening, or obvious pericholecystic inflammatory changes. PANCREAS: There is peripancreatic infiltration along the head and body of the pancreas. SPLEEN: Spleen is enlarged measuring up to 23 cm. ADRENAL GLANDS: Unremarkable. KIDNEYS AND URETERS: The kidneys are normal in size, shape, and attenuation. No hydronephrosis, hydroureter, or calculi seen. No perinephric stranding. BLADDER: Unremarkable. GASTROINTESTINAL TRACT: There are diverticula of the descending and sigmoid colon without diverticulitis. ABDOMINAL WALL: No significant hernia is appreciated. LYMPH NODES: Normal. VASCULAR: There is atherosclerotic plaque of the abdominal aorta and proximal branches. PELVIC VISCERA: The prostate gland is enlarged. OSSEOUS STRUCTURES: There is diffuse thoracolumbar disc degenerative change. CT/CT abdomen pelvis w IV con IMPRESSION: 1. Peripancreatic infiltration along the body and head of the pancreas suggests pancreatitis. Correlation needed. 2. Splenomegaly. 3. Diverticulosis without diverticulitis. 4. Enlarged prostate gland. Fleischner guidelines were followed.
--- NOTE | ~2023-02-15 | US_ITS ---
EXAMINATION: US ABDOMEN COMPLETE CLINICAL INFORMATION: Acute pancreatitis. COMPARISON: CT abdomen pelvis February 16, 2023 TECHNIQUE: Real-time imaging of the abdominal viscera. Today's examination is limited secondary to overlying bowel gas. FINDINGS: PANCREAS: The majority of the pancreas is obscured by overlying bowel gas and therefore not accurately evaluated. ABDOMINAL AORTA: The proximal, mid, and distal segments are normal in caliber. INFERIOR VENA CAVA: Visualized portions are normal. LIVER: Normal. The liver is normal in size. The liver contour is normal. Parenchymal echogenicity is normal. No focal hepatic lesion. There is no intrahepatic biliary duct dilatation seen. GALLBLADDER: The gallbladder is physiologically distended. A few small gallstones are noted. There is no gallbladder wall thickening or pericholecystic fluid appreciated. COMMON BILE DUCT: Normal in caliber measuring 0.5 cm in diameter. RIGHT KIDNEY: Normal. No hydronephrosis. No renal calculi or focal parenchymal lesions. The kidney measures 11.5 cm in maximum dimension. LEFT KIDNEY: Normal. No hydronephrosis. No renal calculi or focal parenchymal lesions. The kidney measures 12.5 cm in maximum dimension. SPLEEN: The spleen measures 25 cm in maximum dimension. FREE FLUID: None. US/US abdomen complete IMPRESSION: 1. Cholelithiasis. No ultrasound evidence to suggest acute cholecystitis. 2. Splenomegaly.
[2023-02-15 16:27] VITALS: BP 156/102
[2023-02-15 17:44] VITALS: BP 148/72; PULSE 69; RESP 16; TEMP 36.2; O2SAT 96; BMI 39.2
--- NOTE | 2023-02-15 17:46 | ED_ITS ---
HPI - General Adult General Chief complaint: Abdominal Pain Stated complaint: abd pain x3rs Time Seen by Provider: 02/15/23 23:03 History of Present Illness HPI narrative: The patient is a 72-year-old male who says that he developed pain in his upper abdomen at around 13:00 this afternoon. He had eaten a large brunch earlier in the day. He says that he waited the pain out for a while but ultimately it was quite persistent and he came to the hospital for evaluation. He had 1 episode of vomiting. His pain is not really been getting any worse while he has been waiting to be seen but it has been quite persistent and constant. He feels it mostly in the epigastrium and the right upper quadrant. He says that he had an episode of pain like this about a month or 2 ago but it got better spontaneously after an hour or so and he did not come to the hospital. No fever, sweats, chills. Says that he drinks alcohol intermittently. He denies being an alcoholic. Related Data Home Medications Medication Instructions Recorded Confirmed finasteride 5 mg tablet 5 mg PO DAILY 02/16/23 02/16/23 lisinopril 30 mg tablet 30 mg PO BEDTIME 02/16/23 02/16/23 naproxen 500 mg tablet 500 mg PO BID 02/16/23 02/16/23 nicotine 21 mg/24 hr daily 1 patch topical DAILY 02/16/23 02/16/23 transdermal patch tamsulosin 0.4 mg capsule 0.4 mg PO BEDTIME 02/16/23 02/16/23 temazepam 30 mg capsule 30 mg PO DAILY@1800 PRN insomnia 02/16/23 02/16/23 tramadol 50 mg tablet 50 mg PO TID PRN Pain 02/16/23 02/16/23 trazodone 100 mg tablet 100 mg PO DAILY@1800 Insomnia 02/16/23 02/16/23 vitamin B complex 1 cap PO DAILY 02/16/23 02/16/23 Allergies Allergy/AdvReac Type Severity Reaction Status Date / Time atropine AdvReac Intermediate panic Verified 02/15/23 17:44 attack [id number] Reductase AdvReac Intermediate hematuria/ thick Verified 02/15/23 17:44 Inhibitor semen Bee stings Allergy Severe anaphylaxis Uncoded 02/15/23 17:44 urinary catheter AdvReac Intermediate panic Uncoded 02/15/23 17:44 attack Review of Systems 2 Review of Systems: Yes all other systems are reviewed and are negative [facility] Past Medical History Medical History Osteoarthritis of right knee Venous insufficiency of both lower extremities Insomnia Colonoscopy refused Hyperlipidemia OA (osteoarthritis) of knee HTN (hypertension) Prostate CA Central sleep apnea Surgical History S/P tendon repair Status post total knee replacement, right H/O wisdom tooth extraction Family History Family History Father Family history of cancer Mother CHF (congestive heart failure) Mental health disorder Social History Social History Housing: Apartment Are you a primary wound care specialist to a significant other at home: No Do you presently have visiting nurse or other home services: No Alcohol intake: current Alcohol intake frequency: holidays/special occasions only Alcohol type: hard liquor Patient Tobacco Use Status: Former Tobacco user Quit Date: 2 MTHS AGO Tobacco use type: Cigarette Cigarettes Per Day: 10 Years Smoked: 52 e-Cigarette/Vaping Use: Former Use Advance Directives: Yes Advance Directives on File: Yes Advance Directives Date on File: 11/07/21 Nutrition Risks: No Nutritional Risk service: Yes Current occupational status: retired Physical Exam ED Vital Signs: Vital Signs - 24 hr 02/15/23 17:44 02/15/23 23:30 02/16/23 01:36 Temperature 97.2 F 97.8 F Pulse Rate 69 71 73 Respiratory Rate 16 17 18 Blood Pressure 148/72 H 158/63 H 156/71 H Pulse Oximetry 96 95 96 Oxygen Delivery Method Room Air Room Air Room Air BMI result Body Mass Index 39.2 Const Other: The patient is awake, alert, pleasant, cooperative. He looks somewhat chronically ill but did not seem obviously acutely ill. HENMT Other: Face is symmetrical. Mucous membranes moist. Eyes Other: Pupils are round equal, no scleral icterus Neck Other: No JVD she is 30 does the but the pressure you weeks Resp Other: No increased work of breathing, lungs are clear bilaterally. Cardio Other: The patient has regular rate and rhythm with no murmur. She GI Other: The patient is tender in his abdomen diffusely but mostly in the epigastrium and right upper quadrant. Skin Other: Skin is dry and unremarkable. Neuro Other: The patient is awake, alert, pleasant, cooperative. Speech is clear. Face is symmetrical. Moves extremities symmetrically. Seems grossly neurologically intact. Extrem Other: No peripheral edema. Course Course Course Narrative: This is a rapid medical exam: Additional HPI, ROS, PE not included below will be deferred to primary provider. Patient is a 72-year-old male with history of HTN, prostate CA, HLD presenting to the ED with complaint of diffuse abdominal pain and flank pain as well as chest pain and dizziness since 1pm today. Reports one episode of vomiting small amount of brown emesis. Denies any hematochezia or melena. Denies any diarrhea or constipation. Plan: EKG, labs, UA Medications Administered Generic Name Dose Route Start Last Admin Trade Name Freq PRN Reason Stop Dose Admin Enoxaparin Sodium 40 mg 02/16/23 02:00 02/16/23 02:14 Enoxaparin Sodium 40 Mg/0.4 Ml Syringe SUBCUT 40 mg BEDTIME SEAN Administration Hydromorphone HCl 0.5 mg 02/16/23 01:55 02/16/23 12:48 Hydromorphone Hcl 1 Mg/Ml Syringe IVPUSH 0.5 mg Q4H PRN Administration Pain, Severe (Pain Scale 7-10) Protocol Dextrose/Sodium Chloride 1,000 mls @ 125 mls/hr 02/16/23 02:00 02/16/23 12:00 D51/2ns IVCONT Infused .Q8H SEAN Infusion Lisinopril 30 mg 02/16/23 09:00 02/16/23 08:35 Lisinopril 10 Mg Tablet PO 30 mg DAILY SEAN Administration Protocol Nicotine 21 mg 02/16/23 09:00 02/16/23 10:21 Nicotine 21 Mg Patch.Td24 TRANSDERMA 21 mg DAILY SEAN Administration Oxycodone HCl 5 mg 02/16/23 01:55 02/16/23 08:38 Oxycodone Hcl Immed Release 5 Mg Tablet PO 5 mg Q6H PRN Administration Pain, Moderate(Pain Scale 4-6) Sodium Chloride 3 ml 02/16/23 08:00 02/16/23 08:35 0.9 % Sodium Chloride Flush 3 Ml Syringe IVFLUSH Not Given QSHIFT SEAN Discontinued Medications Generic Name Dose Route Start Last Admin Trade Name Gume PRN Reason Stop Dose Admin Docusate Sodium 100 mg 02/16/23 09:00 02/16/23 07:45 Docusate Sodium 100 Mg Capsule PO Not Given BID SEAN Sodium Chloride 1,000 mls @ 999 mls/hr 02/15/23 23:15 02/16/23 01:26 Ns IV 02/16/23 00:15 Infused .Q1H1M SEAN Infusion Sodium Chloride 1,000 mls @ 999 mls/hr 02/16/23 01:30 02/16/23 02:38 Ns IV 02/16/23 02:30 Infused .Q1H1M SEAN Infusion Iohexol 85 ml 02/16/23 00:12 02/16/23 00:13 Iohexol 350 Mg/Ml 100 Ml Infus..Btl IV 02/16/23 00:13 85 ml ONCE ONE Administration Ketorolac Tromethamine 15 mg 02/15/23 23:12 02/15/23 23:42 Ketorolac Tromethamine 15 Mg/Ml Vial IVPUSH 02/15/23 23:13 15 mg ONCE ONE Administration Morphine Sulfate 4 mg 02/16/23 01:24 02/16/23 01:32 Morphine Sulfate 4 Mg/Ml Cartridge IVPUSH 02/16/23 01:25 4 mg ONCE ONE Administration Protocol Medical Decision Making Medical Decision Making MDM Narrative: The patient is a 72-year-old male who presents with several hours of epigastric pain. He has an elevated lipase at 1447. He has some mild LFT abnormalities. A CT scan of the abdomen and pelvis shows findings consistent with pancreatitis but shows no signs of gallstones or biliary ductal dilation. The patient does not seem septic in any way. This is a first-time episode of pancreatitis. His triglycerides are not significantly elevated. The patient says that he is in intermittent alcohol user but denies being an alcoholic. My suspicion is that he probably drinks more than he is admitting. The patient was given IV fluids and pain medications. He will be admitted to the hospitalist service for further evaluation and management. Lab Data 02/16/23 05:00 02/16/23 05:00 Labs: Lab Results 02/15/23 02/15/23 02/15/23 Range/Units 18:13 18:15 23:34 WBC 5.1 (4.8-10.8) X10*3/uL RBC 3.82 L (4.60-5.80) X10*6/uL Hgb 11.6 L (14.0-18.0) g/dl Hct 34.8 L (42.0-52.0) % MCV 91.1 (80.0-98.0) fL MCH 30.4 (27.0-33.0) pg MCHC 33.3 (31.0-36.0) g/dl RDW 20.5 H (11.0-16.0) % Plt Count 171 D (160-400) X10*3/uL MPV 11.5 (9.4-12.4) fL Immature Gran % (Auto) Cancelled Neut % (Auto) Cancelled Lymph % (Auto) Cancelled [place] % (Auto) Cancelled Eos % (Auto) Cancelled Baso % (Auto) Cancelled Lymph # (Auto) Cancelled [place] # (Auto) Cancelled Eos # (Auto) Cancelled Baso # (Auto) Cancelled Abs Immat Gran (auto) Cancelled Absolute Neuts (auto) Cancelled Absolute Nucleated RBC 0.120 H (0.0-0.012) X10*3/uL Nucleated RBC % (auto) 2.3 H (0.0-0.2) /100WBC Neutrophils % (Manual) 76 H (45-73) % Band Neutrophils % 9 H (3-5) % Lymphocytes % (Manual) 5 L (20-40) % Monocytes % (Manual) 7 (2-11) % Metamyelocytes % 1 % Myelocytes % 2 % Abs Neuts (Manual) 4.3 (2.0-8.3) X10*3/uL Lymphocytes # (Manual) 0.3 L (1.2-4.9) X10*3/uL Monocytes # (Manual) 0.4 (0.1-1.2) X10*3/uL Metamyelocytes # 0.1 X10*3/uL Myelocytes # 0.1 X10*/uL Nucleated RBCs 2 H (0-0) /100WBC Toxic Vacuolation PRESENT Platelet Estimate NORMAL (NORMAL) Large Platelets PRESENT Plt Morphology Comment NOTED RBC Morphology NOTED Polychromasia 1+ (0-2) /OIF Basophilic Stippling 1+ (0-2) /OIF Tear Drop Cells 1+ (0-2) /OIF Ovalocytes 1+ (5-14) /OIF Sodium 137 (135-145) mmol/L Potassium 4.9 (3.3-5.1) mmol/L Chloride 106 (96-108) mmol/L Carbon Dioxide 22 (22-29) mmol/L Anion Gap 14 (12-20) BUN 20 H (9-16) mg/dL Creatinine 1.14 (0.5-1.4) mg/dL Estim Creat Clear Calc 71.4 Estimated GFR > 60 Random Glucose 129 H (60-115) mg/dL Calcium 9.5 D (8.4-10.2) mg/dL Total Bilirubin 1.2 H (0.0-1.0) mg/dL AST 75 H (5-37) U/L ALT 48 H (0-40) U/L Alkaline Phosphatase 150 H (39-117) U/L Troponin I High Sens < 2.7 (<3.5-35.0) ng/L C-Reactive Protein 0.48 (< or = 0.50) mg/dL Total Protein 8.1 H (6.5-8.0) g/dL Albumin 4.7 (3.5-5.0) g/dL Triglycerides 232 H (<150) mg/dL Lipase 1447 H (8-78) U/L Urine Color Dark Yellow Urine Appearance Clear Urine pH 5.5 (5.0-9.0) Ur Specific [place] 1.015 (1.005-1.025) Urine Protein Trace (Neg-Trace) mg/dL Urine Glucose (UA) Negative (Negative) mg/dL Urine Ketones Negative (Negative) mg/dL Urine Blood Trace H (Negative) Urine Nitrite Negative (Negative) Ur Leukocyte Esterase Trace H (Negative) Urine RBC 11-20 H (0-2) /HPF Urine WBC 0-5 (0-5) /HPF Ur Squamous Epith Cells 0-2 (0-2) /HPF Urine Bacteria None Seen (None Seen) Hyaline Casts 0-2 (0-2) /LPF Independent Interpretation I performed an independent interpretation of an: EKG Interpretation: She EKG at 18:16 shows sinus rhythm with a first-degree AV block at 65 beats per minute. No definite acute ischemic changes. Discharge Plan Discharge Clinical Impression: Acute pancreatitis Qualifiers: Pancreatitis type: idiopathic Acute pancreatitis complication: no infection or necrosis Qualified Code(s): K85.00 - Idiopathic acute pancreatitis without necrosis or infection Patient Disposition: Admitted As Inpatient
--- NOTE | 2023-02-15 17:48 | ECG_ITS ---
Test Reason : cp Blood Pressure : / mmHG Vent. Rate : 065 BPM Atrial Rate : 065 BPM P-R Int : 220 ms QRS Dur : 084 ms QT Int : 406 ms P-R-T Axes : 042 004 097 degrees QTc Int : 422 ms Sinus rhythm with 1st degree A-V block Nonspecific T wave abnormality Abnormal ECG When compared with ECG of 17-SEP-2021 09:35, Nonspecific T wave abnormality, worse in Anterolateral leads Referred By: Yulia Goins Electronically Signed By:KENNY DURHAM
[2023-02-15 18:24] LABS: Hematocrit 34.8 % (42.0-52.0); Hemoglobin 11.6 g/dl (14.0-18.0); Mean Corpuscular HGB Conc 33.3 g/dl (31.0-36.0); Mean Corpuscular Hemoglobin 30.4 pg (27.0-33.0); Mean Corpuscular Volume 91.1 fL (80.0-98.0); Mean Platelet Volume 11.5 fL (9.4-12.4); Platelet Count 171 X10*3/uL (160-400); Red Blood Count 3.82 X10*6/uL (4.60-5.80); Red Cell Distribution Width 20.5 % (11.0-16.0); White Blood Count 5.1 X10*3/uL (4.8-10.8)
[2023-02-15 18:27] LABS: NRBC Pct Auto 2.3 /100WBC (0.0-0.2)
[2023-02-15 18:36] LABS: Alanine Aminotransferase 48 U/L (0-40); Albumin Level 4.7 g/dL (3.5-5.0); Alkaline Phosphatase 150 U/L (39-117); Anion Gap 14 (12-20); Aspartate Amino Transferase 75 U/L (5-37); Bilirubin Total 1.2 mg/dL (0.0-1.0); Blood Urea Nitrogen 20 mg/dL (9-16); Calcium 9.5 mg/dL (8.4-10.2); Carbon Dioxide 22 mmol/L (22-29); Chloride 106 mmol/L (96-108); Creatinine Clr Calc Pharmacy 71.4; Estimated Glomerular Filt Rate > 60; Glucose Random 129 mg/dL (60-115); Potassium 4.9 mmol/L (3.3-5.1); Sodium 137 mmol/L (135-145); Total Protein 8.1 g/dL (6.5-8.0)
[2023-02-15 18:44] LABS: Troponin-I High Sensitivity < 2.7 ng/L (<3.5-35.0)
[2023-02-15 19:01] LABS: Band Neutrophils Percent 9 % (3-5); Lymphocytes Absolute Manual 0.3 X10*3/uL (1.2-4.9); Lymphocytes Percent Manual 5 % (20-40); Metamyelocytes Absolute 0.1 X10*3/uL; Metamyelocytes Percent 1 %; Monocytes Absolute Manual 0.4 X10*3/uL (0.1-1.2); Monocytes Percent Manual 7 % (2-11); Myelocytes Absolute 0.1 X10*/uL; Myelocytes Percent 2 %; Neutrophils Absolute Manual 4.3 X10*3/uL (2.0-8.3); Neutrophils Percent Manual 76 % (45-73); Nucleated Red Blood Cells 2 /100WBC (0-0)
[2023-02-15 19:02] LABS: Basophilic Stippling 1+ (0-2) /OIF; Polychromasia 1+ (0-2) /OIF; RBC Morphology NOTED; Tear Drop Cells 1+ (0-2) /OIF; Toxic Vacuolation PRESENT
[2023-02-15 19:03] LABS: Ovalocytes 1+ (5-14) /OIF
[2023-02-15 19:04] LABS: Platelet Estimate NORMAL (NORMAL)
[2023-02-15 19:05] LABS: Large Platelet PRESENT; Platelet Morphology Comment NOTED
--- NOTE | 2023-02-15 21:27 | MHC.EDTECH ---
Attempted to get a urine sample, patient was unable to go at this time.
[2023-02-15 23:30] VITALS: BP 158/63; PULSE 71; RESP 17; TEMP 36.6; O2SAT 95
[2023-02-15 23:39] LABS: C Reactive Protein 0.48 mg/dL (< or = 0.50)
[2023-02-15 23:40] LABS: Appearance Urine Clear; Color Urine Dark Yellow; Glucose Urine UA Negative (Negative); Leukocyte Esterase Urine Trace (Negative); Nitrite Urine Negative (Negative); PH 5.5 (5.0-9.0); Specific Gravity - Urine 1.015 (1.005-1.025); UMIC TRIGGER UACC YES; Urine Blood Trace (Negative); Urine Ketones Negative (Negative); Urine Protein Trace mg/dL (Neg-Trace)
[2023-02-15] MEDS: Ketorolac Tromethamine 15 MG/ML VIAL IVPUSH (23:42)
[2023-02-15] MEDS: 0.9 % Sodium Chloride 1,000 ML 999 ML IV (23:43)
[2023-02-15 23:45] LABS: Bacteria Urine None Seen (None Seen); Hyaline Casts Urine 0-2 /LPF (0-2); Squamous Epithelial Cell Urine 0-2 /HPF (0-2); WBC Urine 0-5 /HPF (0-5)
[2023-02-15 23:46] LABS: Lipase 1447 U/L (8-78)
[2023-02-16] VITALS (9 sets, daily range): BP systolic 124–156; BP diastolic 64–77; PULSE 62–73; RESP 16–18; TEMP 36.1–36.6; O2SAT 95–97
[2023-02-16] MEDS: iohexoL 350 MG/ML 100 ML INFUS..BTL 85 ML IV (00:13)
[2023-02-16] MEDS: 0.9 % Sodium Chloride 1,000 ML 999 ML IV (01:31)
[2023-02-16] MEDS: Morphine Sulfate 4 MG/ML CARTRIDGE IVPUSH (01:32)
[2023-02-16 01:37] LABS: Triglycerides 232 mg/dL (<150)
--- NOTE | 2023-02-16 02:02 | PM.IMHP ---
History of Present Illness Date of Service: 02/16/23 Attending physician on admission: Emmett Teresa Chief Complaint: Abdominal pain x 1 day Patient is a 72-year-old morbidly obese (BMI 39.2) white male with past medical history of hypertension, hyperlipidemia, sleep apnea, BPH and prostate cancer who presents to the emergency room from home complaining of severe epigastric abdominal pain since around 1:00 p.m. this afternoon that started after he had eaten a large brunch earlier in the day. Pain was mild at first but progressively became intense and was associated with nausea and 2 episodes of non-bloody, non-projectile emesis. He tried to wait it up at home but it just got worse hence his decision to come in for evaluation. He denies any associated fever or chills. Initial workup done in the emergency room was significant for elevated serum lipase at 1447. An abdominal CT scan done had findings concerning for acute pancreatitis. Of note, he denies being an alcoholic stating that he last drank alcohol 2 weeks ago and at most will drink maybe 3 times a month. He received intravenous Toradol and morphine for pain following which admission was requested for continued care. Review of Systems Review of Systems: Yes all other systems are reviewed and are negative [facility] Medical History Osteoarthritis of right knee Venous insufficiency of both lower extremities Insomnia Colonoscopy refused Hyperlipidemia OA (osteoarthritis) of knee HTN (hypertension) Prostate CA Central sleep apnea Family History Father Family history of cancer Mother CHF (congestive heart failure) Mental health disorder Surgical History S/P tendon repair Status post total knee replacement, right H/O wisdom tooth extraction Social History Housing: Apartment Are you a primary healthcare administrative assistant to a significant other at home: No Do you presently have visiting nurse or other home services: No Alcohol intake: current Alcohol intake frequency: holidays/special occasions only Alcohol type: hard liquor Patient Tobacco Use Status: Former Tobacco user Quit Date: 2 MTHS AGO Tobacco use type: Cigarette Cigarettes Per Day: 10 Years Smoked: 52 e-Cigarette/Vaping Use: Former Use Advance Directives: Yes Advance Directives on File: Yes Advance Directives Date on File: 11/07/21 service: Yes Current occupational status: retired Meds Allergies Allergy/AdvReac Type Severity Reaction Status Date / Time atropine AdvReac Intermediate panic Verified 02/15/23 17:44 attack [id number] Reductase AdvReac Intermediate hematuria/ thick Verified 02/15/23 17:44 Inhibitor semen Bee stings Allergy Severe anaphylaxis Uncoded 02/15/23 17:44 urinary catheter AdvReac Intermediate panic Uncoded 02/15/23 17:44 attack Physical Exam Vital Signs and Narrative: Vital Signs: Last Vital Signs Temp 97.8 F 02/15/23 23:30 Pulse 73 02/16/23 01:36 Resp 18 02/16/23 01:36 BP 156/71 H 02/16/23 01:36 Pulse Ox 96 02/16/23 01:36 O2 Del Method Room Air 02/16/23 01:36 BMI result Body Mass Index 39.2 General: Obese white male in bed. Awake, alert and oriented x 4. No apparent distress Eyes: No pallor or jaundice. PERRLA, EOMI HENT: Moist oral mucus membranes. No oropharyngeal lesions. Neck: Supple. No cervical adenopathy. No JVD Cardiovascular: Regular rate and rhythm. Normal heart sounds. No murmurs, rubs or gallops. No JVD. No peripheral edema. Respiratory: Normal respiratory effort with no accessory muscle use. CTAB. Gastrointestinal: Abdomen is obese, flabby, soft, with epigastric and RLQ/LLQ tenderness. NABS. No hepatosplenomegaly NUBIA: Deferred Extremities: No edema. No calf tenderness. Good peripheral pulses Skin: Warm/Dry. No rashes. No mottling. Capillary refill is < 2 seconds Neurological: AAOx4. Intact speech & cognition. Normal gait & balance. CN II - XII grossly intact but not individually tested. No motor or sensory deficits Hematologic: No bleeding. No ecchymosis. No swollen or tender lymph nodes. Psychiatric: Cooperative. Appropriate mood and affect. Results Labs 02/15/23 18:15 02/15/23 18:15 Labs: Laboratory Results - last 24 hr 02/15/23 02/15/23 18:15 23:34 MCV 91.1 MCH 30.4 MCHC 33.3 RDW 20.5 H Plt Count 171 D MPV 11.5 Immature Gran % (Auto) Cancelled Neut % (Auto) Cancelled Lymph % (Auto) Cancelled [place] % (Auto) Cancelled Eos % (Auto) Cancelled Baso % (Auto) Cancelled Lymph # (Auto) Cancelled [place] # (Auto) Cancelled Eos # (Auto) Cancelled Baso # (Auto) Cancelled Abs Immat Gran (auto) Cancelled Absolute Neuts (auto) Cancelled Absolute Nucleated RBC 0.120 H Nucleated RBC % (auto) 2.3 H Neutrophils % (Manual) 76 H Band Neutrophils % 9 H Lymphocytes % (Manual) 5 L Monocytes % (Manual) 7 Metamyelocytes % 1 Myelocytes % 2 Abs Neuts (Manual) 4.3 Lymphocytes # (Manual) 0.3 L Monocytes # (Manual) 0.4 Metamyelocytes # 0.1 Myelocytes # 0.1 Nucleated RBCs 2 H Toxic Vacuolation PRESENT Platelet Estimate NORMAL Large Platelets PRESENT Plt Morphology Comment NOTED RBC Morphology NOTED Polychromasia 1+ (0-2) Basophilic Stippling 1+ (0-2) Tear Drop Cells 1+ (0-2) Ovalocytes 1+ (5-14) Anion Gap 14 Estim Creat Clear Calc 71.4 Estimated GFR > 60 Random Glucose 129 H Calcium 9.5 D Total Bilirubin 1.2 H AST 75 H ALT 48 H Alkaline Phosphatase 150 H C-Reactive Protein 0.48 Total Protein 8.1 H Albumin 4.7 Triglycerides 232 H Lipase 1447 H Urine Color Dark Yellow Urine Appearance Clear Urine pH 5.5 Ur Specific [place] 1.015 Urine Protein Trace Urine Glucose (UA) Negative Urine Ketones Negative Urine Blood Trace H Urine Nitrite Negative Ur Leukocyte Esterase Trace H Urine RBC 11-20 H Urine WBC 0-5 Ur Squamous Epith Cells 0-2 Urine Bacteria None Seen Hyaline Casts 0-2 ECG ECG interpretation date: 02/16/23 ECG interpretation time: 02:12 Prior ECG tracings: available for review Interpretation: NSR at 65 bpm with normal intervals and anterolateral T-wave flattening. Otherwise with no acute ischemic changes. Imaging Radiologist's Impressions: Impressions Abdomen/Pelvis CT 02/16/23 00:16 1. Peripancreatic infiltration along the body and head of the pancreas suggests pancreatitis. Correlation needed. 2. Splenomegaly. 3. Diverticulosis without diverticulitis. 4. Enlarged prostate gland. Assessment and Plan (1) Elevated liver enzymes: Status: Acute (2) Acute pancreatitis: Qualifiers: Pancreatitis type: idiopathic Acute pancreatitis complication: no infection or necrosis Qualified Code(s): K85.00 - Idiopathic acute pancreatitis without necrosis or infection Status: Acute (3) Central sleep apnea: Status: Acute (4) Obesity (BMI 35.0-39.9 without comorbidity): Status: Acute Plan 72-year-old morbidly obese (BMI 39.2) white male with past medical history of hypertension, hyperlipidemia, sleep apnea, BPH & prostate cancer here with: 1. Acute Pancreatitis - unclear cause (denies alcohol use and Triglycerides only slightly elevated at 232 & calcium is 9.5 mg/dl) - admit for bowel rest - start on IV fluids and analgesics and anti-emetics 2. Elevated liver enzymes - AST and ALT mildly elevated at 75 and 48 respectively 3. Hypertension - BP control is fair - resume Lisinopril 4. GHADA - on nocturnal BiPAP 5. BPH - asymptomatic - resume Finasteride and Tamsulosin 6. Insomnia - resume Temazepam and Trazodone (he takes both at home) 7. Obesity - BMI 39.2 - encourage weight loss DVT: SC Lovenox CODE STATUS: Full code Admission for at least 2 midnights for management of acute pancreatitis Total time managing care of this patient today: 75 minutes. Quality Stroke Does the patient have a stroke diagnosis?: No VTE Prior VTE?: No VTE Risk Level:: Medical - moderate - high VTE Device Contraindication: Treatment Not Indicated VTE Drug Contraindication: N/A - Med Ordered
[2023-02-16] MEDS: Dextrose 5 % and 0.45 % NaCl 1,000 ML 125 ML IVCONT ×3 (02:13→21:14)
[2023-02-16] MEDS: Enoxaparin Sodium 40 MG/0.4 ML SYRINGE SUBCUT ×2 (02:14→20:09)
[2023-02-16] MEDS: HYDROmorphone HCl 1 MG/ML SYRINGE 0.5 MG IVPUSH ×5 (02:57→21:09)
[2023-02-16 05:22] LABS: Hematocrit 32.7 % (42.0-52.0); Hemoglobin 10.9 g/dl (14.0-18.0); Mean Corpuscular HGB Conc 33.3 g/dl (31.0-36.0); Mean Corpuscular Hemoglobin 30.3 pg (27.0-33.0); Mean Corpuscular Volume 90.8 fL (80.0-98.0); Mean Platelet Volume 11.8 fL (9.4-12.4); Platelet Count 176 X10*3/uL (160-400); Red Cell Distribution Width 20.5 % (11.0-16.0)
[2023-02-16 05:37] LABS: Anion Gap 11 (12-20); Blood Urea Nitrogen 17 mg/dL (9-16); Calcium 9.2 mg/dL (8.4-10.2); Carbon Dioxide 23 mmol/L (22-29); Chloride 107 mmol/L (96-108); Creatinine Clr Calc Pharmacy 79.1; Estimated Glomerular Filt Rate > 60; Glucose Random 93 mg/dL (60-115); Potassium 4.2 mmol/L (3.3-5.1); Sodium 137 mmol/L (135-145)
[2023-02-16 05:54] LABS: Lipase 470 U/L (8-78)
--- NOTE | 2023-02-16 06:11 | PC.NURSE ---
pt states that he doesn't want to change into hospital attire at this time
--- NOTE | 2023-02-16 07:49 | PC.NURSE ---
Pt transferred to hospital bed with assistance. Pt reporting pain in his abdomen, medicated per APR. Upon review of his medications, pt stated he does not take colace, and roosevelt take naproxen. Will communicate to hospitalist.
[2023-02-16] MEDS: lisinopriL 10 MG TABLET 30 MG PO (08:35)
[2023-02-16] MEDS: oxyCODONE HCl Immed Release 5 MG TABLET PO ×2 (08:38→15:28)
--- NOTE | 2023-02-16 08:57 | PHA.MEDREC ---
Pharmacy Consult ? Medication Reconciliation Pharmacy has completed the medication reconciliation. Spoke to patient to confirm all meds.
--- NOTE | 2023-02-16 09:06 | P.EN_ITS ---
Event Note Date of Service: 02/16/23 Event Note: 72-year-old morbidly obese (BMI 39.2) white male with past medical history of hypertension, hyperlipidemia, sleep apnea, BPH and prostate cancer who presents to the emergency room from home complaining of severe epigastric abdominal pain since around 1:00 p.m. this afternoon that started after he had eaten a large brunch earlier in the day. Pain was mild at first but progressively became intense and was associated with nausea and 2 episodes of non-bloody, non- projectile emesis,no associated fever or chills. Initial workup done in the emergency room was significant for elevated serum lipase at 1447. An abdominal CT scan done had findings concerning for acute pancreatitis. Of note, he denies being an alcoholic stating that he last drank alcohol 2 weeks ago and at most will drink maybe 3 times a month. He received intravenous Toradol and morphine for pain following which admission was requested for continued care. This morning patient continue to have mid abdominal discomfort, no nausea no vomiting ,no fevers, no chills, no lightheadedness or dizziness. 72-year-old morbidly obese (BMI 39.2) white male with past medical history of hypertension, hyperlipidemia, sleep apnea, BPH & prostate cancer here with: 1. Acute Pancreatitis - unclear cause (denies alcohol use and Triglycerides 232 ,lfts AST and ALT mildly elevated at 75 and 48 respectively Denies trauma, no viral infection. Lipase trending down continue supportive care with analgesics IV fluids and NPO can take ice chips Follow LFTs,lytes, renal function and CBC. 2. Hypertension - BP stable,cont. Lisinopril 4. GHADA - on nocturnal BiPAP 5. BPH - asymptomatic - resume Finasteride and Tamsulosin 6. Insomnia - resume Temazepam and Trazodone 7. Obesity - BMI 39.2, encourage weight loss Time Spent With Patient Time: Total time managing care of this patient today ____ minutes.
--- NOTE | 2023-02-16 09:15 | PC.NURSE ---
per pt request called RT to ask about pt going on BiPAP as he is requesting to sleep stating he does not sleep regular hours overnight.
--- NOTE | 2023-02-16 09:50 | PC.NURSE ---
awaiting nicotine patch from pharm. no distress. talking well. breathing well. piv c/d/i with fluids running. messaged md to see if pt can have ice hips/swabs.
--- NOTE | 2023-02-16 09:56 | PC.NURSE ---
med req'd nicotine patch again as out in pyxis.
[2023-02-16] MEDS: Nicotine 21 MG PATCH.TD24 TRANSDERMA (10:21)
--- NOTE | 2023-02-16 10:29 | PC.NURSE ---
per md garcia ok to have ice chips
--- NOTE | 2023-02-16 11:45 | PC.NURSE ---
pt requested pain meds. called hand cigar making supervisor to waste w this rn as ed charge unable to come. awaiting hand cigar making supervisor
--- NOTE | 2023-02-16 12:57 | PC.NURSE ---
medicated for pain per request. resting in bed. pt walked to bathroom with cane well. voided.
--- NOTE | 2023-02-16 14:00 | PC.NURSE ---
resting- RT brought pt BiPAP which is now in his room and pt using when sleeping as ordered. no distress
--- NOTE | 2023-02-16 17:11 | PC.NURSE ---
given ice chip and pain med per pt request. resting. no distress
[2023-02-16] MEDS: Temazepam 15 MG CAPSULE 30 MG PO (20:09)
[2023-02-16] MEDS: Tamsulosin HCL 0.4 MG CAPSULE PO (20:09)
[2023-02-17] VITALS (7 sets, daily range): BP systolic 131–160; BP diastolic 73–81; PULSE 65–74; RESP 16–20; TEMP 36.2–36.6; O2SAT 94–97
[2023-02-17] MEDS: oxyCODONE HCl Immed Release 5 MG TABLET PO ×3 (00:22→13:41)
--- NOTE | 2023-02-17 00:38 | PC.NURSE ---
Assumed care of patient. Pain medication administered for abdominal pain. No distress noted. Patient resting comfortably .
[2023-02-17] MEDS: HYDROmorphone HCl 1 MG/ML SYRINGE 0.5 MG IVPUSH ×3 (01:32→09:55)
[2023-02-17] MEDS: NaPROXEN 500 MG TABLET PO ×2 (02:46→15:08)
[2023-02-17] MEDS: Dextrose 5 % and 0.45 % NaCl 1,000 ML 125 ML IVCONT ×4 (06:06→23:21)
[2023-02-17 07:03] LABS: Hematocrit 31.8 % (42.0-52.0); Hemoglobin 10.7 g/dl (14.0-18.0); Mean Corpuscular HGB Conc 33.6 g/dl (31.0-36.0); Mean Corpuscular Hemoglobin 30.8 pg (27.0-33.0); Mean Corpuscular Volume 91.6 fL (80.0-98.0); Mean Platelet Volume 12.2 fL (9.4-12.4); Platelet Count 159 X10*3/uL (160-400); Red Blood Count 3.47 X10*6/uL (4.60-5.80); Red Cell Distribution Width 20.3 % (11.0-16.0); White Blood Count 3.5 X10*3/uL (4.8-10.8)
[2023-02-17 07:06] LABS: Anion Gap 14 (12-20); Blood Urea Nitrogen 12 mg/dL (9-16); Calcium 8.8 mg/dL (8.4-10.2); Carbon Dioxide 19 mmol/L (22-29); Chloride 107 mmol/L (96-108); Creatinine Clr Calc Pharmacy 89.5; Estimated Glomerular Filt Rate > 60; Glucose Random 88 mg/dL (60-115); Potassium 3.6 mmol/L (3.3-5.1); Sodium 136 mmol/L (135-145)
[2023-02-17 07:07] LABS: Cholesterol 102 mg/dL (<200); HDL Cholesterol 19 mg/dL (>40); LDL Cholesterol Calculated 48 mg/dL (<100); NRBC Pct Auto 2.9 /100WBC (0.0-0.2); Triglycerides 175 mg/dL (<150)
[2023-02-17] MEDS: lisinopriL 10 MG TABLET 30 MG PO (09:55)
[2023-02-17] MEDS: Nicotine 21 MG PATCH.TD24 TRANSDERMA (09:55)
[2023-02-17 09:59] LABS: Lipase 47 U/L (8-78)
--- NOTE | 2023-02-17 11:03 | P.CNGI_ITS ---
History of Present Illness Data of Consult Service Date: 02/17/23 Requesting physician: Stone Khanna Primary Care Provider: Unknown Physician HPI Reason for consult: acute pancreatitis 72 YM with morbid obesity (BMI 39.2), hypertension, hyperlipidemia, sleep apnea, BPH and prostate cancer seen at [facility] ED on 02/15/23 with severe, upper abdominal pain since 2:00 p.m on 02/15/23. Pt reports abd pain started after he had eaten a large brunch (consisting of hash browns and eggs) around 11 am that day. Pain was initially in RUQ and later moved to epigastric area. It was mild at first but progressively became sharp and intense 12/10 in intensity) and was associated with swaeting, nausea and 2 episodes of non-bloody, non-projectile light brown emesis. Pt came to the ED since abd pain became progressively worse. He denied any fever or chills. Patient denies recent change in appetite, bowel pattern or weight. Patient admits to smoking 1 pack per day since age 17 years, states he quitted smoking on admission and has a nicotine patch. Patient gives a history of severe sleep apnea and uses a BiPAP machine. 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 Patient denies known family history of pancreatic disease, colon polyps or colon cancer. Pt reports similar episode of pain 3 months ago which resolved spontaneously in a few hours and patient did not seek medical attention. Initial workup done in the emergency room was significant for elevated serum lipase at 1447 and elevated LFTs. Of note, pt denied being an alcoholic stating that he last drank alcohol 2 weeks ago and at most will drink 3 times a month In the ED, pt was treated with bowel rest, intravenous Toradol and morphine for pain and admitted for further management. Repeat lipase this am is normal Pt reports pain resolves after he gets pain medications and increaes to 7/10 in intensity after pain medications wear of. 02/16/[address] SCAN SHOWED: 1. Peripancreatic infiltration along the body and head of the pancreas suggests pancreatitis. Correlation needed. 2. Splenomegaly. 3. Diverticulosis without diverticulitis. 4. Enlarged prostate gland. Review of Systems 2 Review of Systems: Yes all other systems are reviewed and are negative [facility] Past Medical History Medical History Splenomegaly Obesity (BMI 35.0-39.9 without comorbidity) Osteoarthritis of right knee Venous insufficiency of both lower extremities Insomnia Colonoscopy refused Hyperlipidemia OA (osteoarthritis) of knee HTN (hypertension) Prostate CA Central sleep apnea Family History Family History Father Family history of cancer Mother CHF (congestive heart failure) Mental health disorder Surgical History Surgical History S/P tendon repair Status post total knee replacement, right H/O wisdom tooth extraction Social History Social History Household Members: None Housing: Apartment Are you a primary rehab care assistant to a significant other at home: No Do you presently have visiting nurse or other home services: No Alcohol intake: current Alcohol intake frequency: holidays/special occasions only Alcohol type: hard liquor Patient Tobacco Use Status: Former Tobacco user Tobacco use type: Cigarette Years Smoked: 52 e-Cigarette/Vaping Use: Former Use Advance Directives Date on File: 11/07/21 service: No Current occupational status: retired Meds Allergies Allergy/AdvReac Type Severity Reaction Status Date / Time atropine AdvReac Intermediate panic Verified 05/03/23 14:23 attack [id number] Reductase AdvReac Intermediate hematuria/ thick Verified 05/03/23 14:23 Inhibitor semen Bee stings Allergy Severe anaphylaxis Uncoded 05/03/23 14:23 urinary catheter AdvReac Intermediate panic Uncoded 05/03/23 14:23 attack Active Medications: Current Medications Acetaminophen (Acetaminophen 325 Mg Tablet) 650 mg PO Q6H PRN PRN Reason: Pain, Mild (Pain Scale 1-3) Al Hydroxide/Mg Hydroxide (Magnesium Hydrox/Alum Hydrox 30 Ml Oral.Susp) 30 ml PO Q4H PRN PRN Reason: Heartburn/Nausea Enoxaparin Sodium (Enoxaparin Sodium 40 Mg/0.4 Ml Syringe) 40 mg SUBCUT BEDTIME SE[facility] Last Admin: 02/16/23 20:09 Dose: 40 mg Hydromorphone HCl (Hydromorphone Hcl 1 Mg/Ml Syringe) 0.5 mg IVPUSH Q4H PRN; Protocol PRN Reason: Pain, Severe (Pain Scale 7-10) Last Admin: 02/17/23 09:55 Dose: 0.5 mg Dextrose/Sodium Chloride (D51/2ns) 1,000 mls @ 125 mls/hr IVCONT .Q8H [facility] Last Admin: 02/17/23 09:58 Dose: 125 mls/hr Lisinopril (Lisinopril 10 Mg Tablet) 30 mg PO DAILY [facility]; Protocol Last Admin: 02/17/23 09:55 Dose: 30 mg Naproxen (Naproxen 500 Mg Tablet) 500 mg PO Q12H PRN PRN Reason: Pain, Moderate(Pain Scale 4-6) Last Admin: 02/17/23 02:46 Dose: 500 mg Nicotine (Nicotine 21 Mg Patch.Td24) 21 mg TRANSDERMA DAILY [facility] Last Admin: 02/17/23 09:55 Dose: 21 mg Ondansetron HCl (Ondansetron Hcl 4 Mg/2 Ml Vial) 4 mg IVPUSH Q8H PRN PRN Reason: Nausea and Vomiting Oxycodone HCl (Oxycodone Hcl Immed Release 5 Mg Tablet) 5 mg PO Q6H PRN PRN Reason: Pain, Moderate(Pain Scale 4-6) Last Admin: 02/17/23 07:25 Dose: 5 mg Sodium Chloride (0.9 % Sodium Chloride Flush 3 Ml Syringe) [facility] Last Admin: 02/17/23 09:39 Dose: Not Given Tamsulosin HCl (Tamsulosin Hcl 0.4 Mg Capsule) 0.4 mg PO BEDTIME [facility] Last Admin: 02/16/23 20:09 Dose: 0.4 mg Temazepam (Temazepam 15 Mg Capsule) 30 mg PO BEDTIME [facility] Last Admin: 02/16/23 20:09 Dose: 30 mg Trazodone HCl (Trazodone Hcl 100 Mg Tablet) 100 mg PO BEDTIME [facility] Last Admin: 02/17/23 00:30 Dose: Not Given Home Medications ?Medication ?Instructions ?Recorded ?Confirmed ?Last Taken ?Type finasteride 5 mg tablet 5 mg PO DAILY 02/16/23 05/03/23 02/14/23 History lisinopril 30 mg tablet 30 mg PO BEDTIME 02/16/23 05/03/23 02/14/23 History naproxen 500 mg tablet 500 mg PO BID 02/16/23 05/03/23 03/07/23 History nicotine 21 mg/24 hr daily 1 patch topical DAILY 02/16/23 05/03/23 02/14/23 History transdermal patch tamsulosin 0.4 mg capsule 0.4 mg PO BEDTIME 02/16/23 05/03/23 02/14/23 History temazepam 30 mg capsule 30 mg PO DAILY@1800 PRN insomnia 02/16/23 05/03/23 02/14/23 History tramadol 50 mg tablet 50 mg PO TID PRN Pain 02/16/23 05/03/23 02/14/23 History trazodone 100 mg tablet 100 mg PO DAILY@1800 Insomnia 02/16/23 05/03/23 02/14/23 History Physical Exam 2 Vital Signs: Vital Signs: Last Vital Signs Temp 97.5 F 02/17/23 07:35 Pulse 65 02/17/23 07:35 Resp 20 02/17/23 07:35 BP 153/73 H 02/17/23 07:35 Pulse Ox 94 02/17/23 07:35 O2 Del Method Room Air 02/17/23 07:35 BMI result Body Mass Index 39.2 Const: General: no acute distress Nutritional Appearance: obese O rientation/consciousness: patient oriented x3 Limitations: no limitations HEENT: Head: Yes normal to inspection Ears: hearing grossly normal bilaterally Eyes: Sclerae: sclerae normal Pupils: Equal, round and reactive pupils present Neck: Neck: Yes normal visual inspection Chest: Chest palpation & inspection: normal inspection of the chest Resp: Effort & Inspection: normal respiratory effort Auscultation: clear to auscultation bilaterally Cardio: Palpation: normal PMI Rate: regular rate Rhythm: regular rhythm Heart sounds: S1 normal heart sound present, S2 normal heart sound present and no murmurs GI: Palpation (GI): Soft to palpation, Tenderness to palpation present (GI) (Moderate diffuse abdominal tenderness without rebound) and No hepatosplenomegaly present Auscultation: normal bowel sounds Rectal Exam - Male: Yes deferred Skin: General skin exam: no rashes or lesions noted Neuro: General: patient oriented x3, gait normal and moves all extremities Cranial nerves: Yes Equal, round and reactive pupils present Psych: Appearance: grossly normal Mental Status: mental status grossly normal Results Labs 02/20/23 13:28 02/19/23 05:54 Labs: Short CBC 02/17/23 Range/Units 06:37 WBC 3.5 L (4.8-10.8) X10*3/uL Hgb 10.7 L (14.0-18.0) g/dl Hct 31.8 L (42.0-52.0) % Plt Count 159 L (160-400) X10*3/uL BMP 02/17/23 06:37 Sodium 136 Potassium 3.6 Chloride 107 Carbon Dioxide 19 L BUN 12 Creatinine 0.91 Calcium 8.8 Assessment and Plan (1) Elevated liver enzymes: Status: Resolved (2) Acute pancreatitis: Qualifiers: Acute pancreatitis complication: no infection or necrosis Pancreatitis type: idiopathic Qualified Code(s): K85.00 - Idiopathic acute pancreatitis without necrosis or infection Status: Acute Plan 72 YM with morbid obesity (BMI 39.2), hypertension, hyperlipidemia, sleep apnea, BPH and prostate cancer admitted to [facility] ED on 02/16/23 with acute pancreatitis of unclear etiology Pancreatitis is likely related to gallstones since LFTs were elevated on admission. Other possibilities include autoimmune pancreatitis, IgG 4 related disease or drug-induced pancreatitis (less than 5%) or idiopathic Hypertriglyceridemia is unlikely since triglycerides levels were minimally elevated on admission Pancreatic ca can present as acute pancreatitis Patient denies known family history of pancreatic disease, colon polyps or colon cancer. Pt reports similar episode of pain 3 months ago which resolved spontaneously in a few hours and patient did not seek medical attention. Initial workup done in the emergency room was significant for elevated serum lipase at 1447 and elevated LFTs. Of note, pt denied being an alcoholic stating that he last drank alcohol 2 weeks ago and at most will drink 3 times a month Repeat lipase this am is normal RECOMMENDATIONS: 1. Agree with IV fluids, bowel rest and IV PPI and pain medications 2. Abd US to rule out [id number] gallstones 3. Pt will need a Lap Janae if US shows gall stones 4. BUSHRA, Ig G4 (rare for autoimmune pancreatitis to present as acute pancreatitis) - was negative 5. Liver panel, iron profile and Vitamin B12 levels added to am labs for workup of anemia - B 12 was normal and iron studies suggestive of anemia of chronic disease 5. MRCP with secretin if abd US is negative to look for pancreatic ductal abnormalities ADDENDUM: ABD US SHOWED: LIVER: Normal. The liver is normal in size. The liver contour is normal. Parenchymal echogenicity is normal. No focal hepatic lesion. There is no intrahepatic biliary duct dilatation seen. GALLBLADDER: The gallbladder is physiologically distended. A few small gallstones are noted. There is no gallbladder wall thickening or pericholecystic fluid appreciated. COMMON BILE DUCT: Normal in caliber measuring 0.5 cm in diameter. SPLEEN: The spleen measures 25 cm in maximum dimension. FREE FLUID: None. IMPRESSION: 1. Cholelithiasis. No ultrasound evidence to suggest acute cholecystitis. 2. Splenomegaly. Procedures Date of Service Date of Service: 09/01/23
--- NOTE | 2023-02-17 12:09 | PC.NURSE ---
given clear liquid tray. sitting up at bedside. no resp distress.
--- NOTE | 2023-02-17 12:47 | PC.NURSE ---
md garcia notified pt tolerated approx 50% of clear liquid tray w/o issue. no distress. walked to bathroom for bm well w walker
--- NOTE | 2023-02-17 13:32 | HO.PM.IMPN ---
Subjective Subjective Date of Service: 02/17/23 Interval History: Complaining of persistent 6/10 diffuse abdominal pain, pain occurs soon after pain medications wears off, had soft small bowel movement this morning, denies nausea, no vomiting, no fever, no chills, no other acute issues overnight. No urinary symptoms, no chest pain, no shortness of breath. Review of Systems All other systems reviewed and negative. No Physical Exam Vital Signs: Vital Signs: Last Vital Signs Temp 97.5 F 02/17/23 07:35 Pulse 65 02/17/23 07:35 Resp 20 02/17/23 07:35 BP 153/73 H 02/17/23 07:35 Pulse Ox 94 02/17/23 07:35 O2 Del Method Room Air 02/17/23 07:35 BMI result Body Mass Index 39.2 Const: Other: General awake alert x3, in no acute distress. Anicteric sclera Neck no JVD. CVS regular rate rhythm, Respiratory lungs clear to auscultation, no respiratory distress, no wheeze, no rhonchi. Gastrointestinal abdomen soft, diffuse mild tenderness to palpation bilateral lower quadrant and mid abdomen, bowel sounds audible, no guarding , no rigidity. Extremities no edema. Neuro nonfocal Skin no rash Psych appropriate affect Objective Data Active Medications Acetaminophen (Acetaminophen 325 Mg Tablet) 650 mg PO Q6H PRN PRN Reason: Pain, Mild (Pain Scale 1-3) Al Hydroxide/Mg Hydroxide (Magnesium Hydrox/Alum Hydrox 30 Ml Oral.Susp) 30 ml PO Q4H PRN PRN Reason: Heartburn/Nausea Enoxaparin Sodium (Enoxaparin Sodium 40 Mg/0.4 Ml Syringe) 40 mg SUBCUT BEDTIME [facility] Last Admin: 02/16/23 20:09 Dose: 40 mg Documented By: BRAD Hydromorphone HCl (Hydromorphone Hcl 1 Mg/Ml Syringe) 0.5 mg IVPUSH Q4H PRN; Protocol PRN Reason: Pain, Severe (Pain Scale 7-10) Last Admin: 02/17/23 09:55 Dose: 0.5 mg Documented By: ALLISON Dextrose/Sodium Chloride (D51/2ns) 1,000 mls @ 125 mls/hr IVCONT .Q8H [facility] Last Admin: 02/17/23 09:58 Dose: 125 mls/hr Documented By: ALLISON Lisinopril (Lisinopril 10 Mg Tablet) 30 mg PO DAILY [facility]; Protocol Last Admin: 02/17/23 09:55 Dose: 30 mg Documented By: ALLISON Naproxen (Naproxen 500 Mg Tablet) 500 mg PO Q12H PRN PRN Reason: Pain, Moderate(Pain Scale 4-6) Last Admin: 02/17/23 02:46 Dose: 500 mg Documented By: BRAD Nicotine (Nicotine 21 Mg Patch.Td24) 21 mg TRANSDERMA DAILY [facility] Last Admin: 02/17/23 09:55 Dose: 21 mg Documented By: ALLISON Ondansetron HCl (Ondansetron Hcl 4 Mg/2 Ml Vial) 4 mg IVPUSH Q8H PRN PRN Reason: Nausea and Vomiting Oxycodone HCl (Oxycodone Hcl Immed Release 5 Mg Tablet) 5 mg PO Q6H PRN PRN Reason: Pain, Moderate(Pain Scale 4-6) Last Admin: 02/17/23 07:25 Dose: 5 mg Documented By: RUSTY Sodium Chloride (0.9 % Sodium Chloride Flush 3 Ml Syringe) [facility] Last Admin: 02/17/23 09:39 Dose: Not Given Documented By: ALLISON Non-Admin Reason: prev shift Tamsulosin HCl (Tamsulosin Hcl 0.4 Mg Capsule) 0.4 mg PO BEDTIME [facility] Last Admin: 02/16/23 20:09 Dose: 0.4 mg Documented By: BRAD Temazepam (Temazepam 15 Mg Capsule) 30 mg PO BEDTIME [facility] Last Admin: 02/16/23 20:09 Dose: 30 mg Documented By: BRAD Trazodone HCl (Trazodone Hcl 100 Mg Tablet) 100 mg PO BEDTIME [facility] Last Admin: 02/17/23 00:30 Dose: Not Given Documented By: BRAD Non-Admin Reason: Patient Refused Labs 02/17/23 06:37 02/17/23 06:37 Labs: Laboratory Results - last 24 hr 02/17/23 06:37 MCV 91.6 MCH 30.8 MCHC 33.6 RDW 20.3 H Plt Count 159 L MPV 12.2 Absolute Nucleated RBC 0.100 H Nucleated RBC % (auto) 2.9 H Anion Gap 14 Estim Creat Clear Calc 89.5 Estimated GFR > 60 Random Glucose 88 Calcium 8.8 Triglycerides 175 H Cholesterol 102 LDL Cholesterol, Calc 48 HDL Cholesterol 19 L Lipase 47 Assessment and Plan (1) Obesity (BMI 35.0-39.9 without comorbidity): Status: Acute (2) Elevated liver enzymes: Status: Acute (3) Acute pancreatitis: Status: Acute Plan 72-year-old morbidly obese (BMI 39.2) white male with past medical history of hypertension, hyperlipidemia, sleep apnea, BPH & prostate cancer here with severe epigastric abdominal pain , nausea and vomiting after eating large brunch . 1. Acute Pancreatitis - persistent abdominal pain, no further episodes of nausea and vomiting unclear cause denies alcohol use and Triglycerides 232 ,lfts AST and ALT mildly elevated at 75 and 48 respectively Denies trauma, no viral infection. Lipase normalized, stable electrolytes and renal function mild drop in bicarb, normal calcium continue supportive care with analgesics, IV fluids and place on liquid diet/clear Ensure Consulted GI, Dr. Golden recommended abdominal ultrasound to rule out gallstones ordered ,if negative then possible MRCP to rule out pancreatic ductal abnormalities BUSHRA, IgG 4 to rule out a autoimmune pancreatitis If ultrasound shows gallstones patient will need a lap choly Follow LFTs,lytes, renal function and CBC. 2. Hypertension - cont. Lisinopril 4. GHADA - on nocturnal BiPAP 5. BPH - asymptomatic - cont. Finasteride and Tamsulosin 6. Insomnia- on Temazepam and Trazodone 7. Obesity - BMI 39.2, encourage weight loss. Patient need continued inpatient hospitalization for management of acute pancreatitis on IV fluids requiring close clinical follow-up electrolyte monitoring and expert consultation. Quality Stroke Does the patient have a stroke diagnosis?: No VTE Prior VTE?: No VTE Risk Level:: Medical - moderate - high VTE Device Contraindication: Treatment Not Indicated VTE Drug Contraindication: N/A - Med Ordered
[2023-02-17 14:27] LABS: Ferritin 324 ng/mL (20-250)
[2023-02-17] MEDS: HYDROmorphone HCl 1 MG/ML SYRINGE IVPUSH ×3 (14:35→23:15)
--- NOTE | 2023-02-17 19:25 | PC.NURSE ---
report entered in [employer]. reilly notified. rn doing belongings sheet now
--- NOTE | 2023-02-17 19:44 | PC.NURSE ---
notifying transport pt ready to go up. RT brought BiPAP machine up to pt's inpt room
--- NOTE | 2023-02-17 19:45 | PC.NURSE ---
notified [facility] transport pt ready per de clin coordinator.
--- NOTE | 2023-02-17 20:12 | PC.NURSE ---
messaged ed as transport has not come yet. messaged transporter lat[facility] again. transporter was in middle of a job but is on way.
--- NOTE | 2023-02-17 20:47 | PC.NURSE ---
Pt requesting to know when he will be transferred. This RN explained that transport will be as soon as they can to bring him. Pt requested and light turned off. Plan of care ongoing.
[2023-02-17] MEDS: Temazepam 15 MG CAPSULE 30 MG PO (22:22)
[2023-02-17] MEDS: traZODone HCL 100 MG TABLET PO (22:23)
[2023-02-17] MEDS: Enoxaparin Sodium 40 MG/0.4 ML SYRINGE SUBCUT (22:23)
[2023-02-17] MEDS: Tamsulosin HCL 0.4 MG CAPSULE PO (22:23)
[2023-02-18 00:30] VITALS: RESP 18
[2023-02-18] MEDS: oxyCODONE HCl Immed Release 5 MG TABLET PO ×3 (02:16→18:05)
[2023-02-18] MEDS: HYDROmorphone HCl 1 MG/ML SYRINGE IVPUSH ×4 (03:44→19:20)
[2023-02-18 04:00] VITALS: BP 140/67; PULSE 73; RESP 16; TEMP 36.1; O2SAT 94
[2023-02-18 06:26] LABS: Hematocrit 28.9 % (42.0-52.0); Hemoglobin 9.7 g/dl (14.0-18.0); Mean Corpuscular HGB Conc 33.6 g/dl (31.0-36.0); Mean Corpuscular Hemoglobin 30.9 pg (27.0-33.0); Mean Platelet Volume 11.8 fL (9.4-12.4); Platelet Count 147 X10*3/uL (160-400); Red Blood Count 3.14 X10*6/uL (4.60-5.80); Red Cell Distribution Width 20.2 % (11.0-16.0); White Blood Count 2.9 X10*3/uL (4.8-10.8)
[2023-02-18 06:30] LABS: NRBC Pct Auto 3.4 /100WBC (0.0-0.2)
[2023-02-18 06:49] LABS: Alanine Aminotransferase 15 U/L (0-40); Albumin Level 3.9 g/dL (3.5-5.0); Alkaline Phosphatase 109 U/L (39-117); Anion Gap 13 (12-20); Aspartate Amino Transferase 18 U/L (5-37); Bilirubin Direct 0.5 mg/dL (0.0-0.5); Bilirubin Total 1.1 mg/dL (0.0-1.0); Blood Urea Nitrogen 10 mg/dL (9-16); Calcium 8.7 mg/dL (8.4-10.2); Carbon Dioxide 22 mmol/L (22-29); Chloride 108 mmol/L (96-108); Creatinine Clr Calc Pharmacy 88.5; Estimated Glomerular Filt Rate > 60; Glucose Random 93 mg/dL (60-115); Iron 75 mcg/dL (45-160); Percent Iron Saturation 35 % (15-50); Potassium 3.6 mmol/L (3.3-5.1); Sodium 139 mmol/L (135-145); Total Iron Binding Capacity 217 mcg/dL (228-428); Total Protein 6.9 g/dL (6.5-8.0); Unsaturated Iron Binding 142 ug/dL
[2023-02-18 07:11] LABS: Folate 3.8 ng/mL (> or = 4.0); Vitamin B12 648 pg/mL (200-900)
[2023-02-18 07:35] VITALS: BP 142/73; PULSE 73; RESP 16; TEMP 36.2; O2SAT 97
[2023-02-18] MEDS: Nicotine 21 MG PATCH.TD24 TRANSDERMA (08:16)
[2023-02-18] MEDS: lisinopriL 10 MG TABLET 30 MG PO (08:21)
[2023-02-18] MEDS: 0.9 % Sodium Chloride Flush 3 ML SYRINGE IVFLUSH ×2 (08:23→20:59)
[2023-02-18] MEDS: Folic Acid 1 MG TABLET PO (08:59)
[2023-02-18] MEDS: NaPROXEN 500 MG TABLET PO (11:06)
--- NOTE | 2023-02-18 11:17 | MHC.CM.PN ---
PT LIVES ALONE Has services thru [facility] mow and homemaker pt may need a [facility] van ride home dcplan hoem with services
--- NOTE | 2023-02-18 11:34 | P.PNIM_ITS ---
Subjective Subjective Date of Service: 02/18/23 Interval History: pain improved, hungry Review of Systems Review of Systems: Yes all other systems are reviewed and are negative Physical Exam 2 Vital Signs: Vital Signs: Last Vital Signs Temp 97.1 F 02/18/23 07:35 Pulse 73 02/18/23 07:35 Resp 16 02/18/23 07:35 BP 142/73 H 02/18/23 07:35 Pulse Ox 97 02/18/23 07:35 O2 Del Method Room Air 02/18/23 07:35 BMI result Body Mass Index 39.2 Gen: in no acute distress HEENT: sclera anicteric, moist mucus membranes Neck: supple Lungs: clear to auscultation bilaterally Heart: regular rate and rhythm, no murmurs, Abd: soft, mild tenderness periumbilically with no rebound, non-distended, obese Ext: no edema Skin: warm/well-perfused Neuro: alert and oriented x3, no focal findings Psych: appropriate affect Objective Data Active Medications Acetaminophen (Acetaminophen 325 Mg Tablet) 650 mg PO Q6H PRN PRN Reason: Pain, Mild (Pain Scale 1-3) Al Hydroxide/Mg Hydroxide (Magnesium Hydrox/Alum Hydrox 30 Ml Oral.Susp) 30 ml PO Q4H PRN PRN Reason: Heartburn/Nausea Enoxaparin Sodium (Enoxaparin Sodium 40 Mg/0.4 Ml Syringe) 40 mg SUBCUT BEDTIME [facility] Last Admin: 02/17/23 22:23 Dose: 40 mg Documented By: MABEL Folic Acid (Folic Acid 1 Mg Tablet) 1 mg PO DAILY [facility] Last Admin: 02/18/23 08:59 Dose: 1 mg Documented By: CRISTIAN Hydromorphone HCl (Hydromorphone Hcl 1 Mg/Ml Syringe) 1 mg IVPUSH Q4H PRN; Protocol PRN Reason: Pain, Severe (Pain Scale 7-10) Last Admin: 02/18/23 08:15 Dose: 1 mg Documented By: CRISTIAN Lisinopril (Lisinopril 10 Mg Tablet) 30 mg PO DAILY [facility]; Protocol Last Admin: 02/18/23 08:21 Dose: 30 mg Documented By: CRISTIAN Naproxen (Naproxen 500 Mg Tablet) 500 mg PO Q12H PRN PRN Reason: Pain, Moderate(Pain Scale 4-6) Last Admin: 02/18/23 11:06 Dose: 500 mg Documented By: MELODY Nicotine (Nicotine 21 Mg Patch.Td24) 21 mg TRANSDERMA DAILY [facility] Last Admin: 02/18/23 08:16 Dose: 21 mg Documented By: CRISTIAN Ondansetron HCl (Ondansetron Hcl 4 Mg/2 Ml Vial) 4 mg IVPUSH Q8H PRN PRN Reason: Nausea and Vomiting Oxycodone HCl (Oxycodone Hcl Immed Release 5 Mg Tablet) 5 mg PO Q6H PRN PRN Reason: Pain, Moderate(Pain Scale 4-6) Last Admin: 02/18/23 11:07 Dose: 5 mg Documented By: MELODY Sodium Chloride (0.9 % Sodium Chloride Flush 3 Ml Syringe) 3 ml IVFLUSH QSHIFT [facility] Last Admin: 02/18/23 08:23 Dose: 3 ml Documented By: CRISTIAN Tamsulosin HCl (Tamsulosin Hcl 0.4 Mg Capsule) 0.4 mg PO BEDTIME [facility] Last Admin: 02/17/23 22:23 Dose: 0.4 mg Documented By: MABEL Temazepam (Temazepam 15 Mg Capsule) 30 mg PO BEDTIME [facility] Last Admin: 02/17/23 22:22 Dose: 30 mg Documented By: MABEL Trazodone HCl (Trazodone Hcl 100 Mg Tablet) 100 mg PO BEDTIME [facility] Last Admin: 02/17/23 22:23 Dose: 100 mg Documented By: MABEL Labs 02/18/23 06:05 02/18/23 06:05 Labs: Laboratory Results - last 24 hr 02/17/23 02/18/23 13:27 06:05 MCV 92.0 MCH 30.9 MCHC 33.6 RDW 20.2 H Plt Count 147 L MPV 11.8 Absolute Nucleated RBC 0.100 H Nucleated RBC % (auto) 3.4 H Hold Purple Top SEE NOTE Anion Gap 13 Estim Creat Clear Calc 88.5 Estimated GFR > 60 Random Glucose 93 Calcium 8.7 Iron 75 TIBC 217 L % Saturation 35 Unsat Iron Binding 142 Ferritin 324 H Total Bilirubin 1.1 H Direct Bilirubin 0.5 AST 18 ALT 15 Alkaline Phosphatase 109 Total Protein 6.9 Albumin 3.9 Vitamin B12 648 Folate 3.8 L Assessment and Plan (1) Obesity (BMI 35.0-39.9 without comorbidity): Status: Acute (2) Elevated liver enzymes: Status: Acute (3) Acute pancreatitis: Status: Acute Plan d3 72yo M with HTN, HLD, GHADA, BPH, prostate CA admitted for 1st episode of acute pancreatitis acute pancreatitis - intermittent but minimal use of alcohol - US pending; if negative, MRCP to assess for pancreatic duct abnormalities - TGs normal - BUSHRA, IgG pending to assess for autoimmune pancreatitis - GI following - LFTs normalized - advance to solid diet today folate deficient anemia - replete HTN - lisinopril GHADA - BiPAP @ night BPH - tamsulosin insomnia - trazodone + temazepam tobacco abuse - NRT VTE ppx - LMWH dispo - eventual home In my clinical judgment, the patient requires continued inpatient hospitalization for the following reasons: acute pancreatitis requiring further workup Total time managing care of this patient today: 40 minutes. Quality Stroke Does the patient have a stroke diagnosis?: No VTE Prior VTE?: No VTE Risk Level:: Medical - moderate - high VTE Device Contraindication: Treatment Not Indicated VTE Drug Contraindication: N/A - Med Ordered
[2023-02-18 15:26] VITALS: BP 131/72; PULSE 75; RESP 18; TEMP 36.4; O2SAT 94
[2023-02-18 19:32] VITALS: BP 167/76; PULSE 78; RESP 18; TEMP 36.4; O2SAT 96
[2023-02-18] MEDS: traZODone HCL 100 MG TABLET PO (20:57)
[2023-02-18] MEDS: Temazepam 15 MG CAPSULE 30 MG PO (20:57)
[2023-02-18] MEDS: Enoxaparin Sodium 40 MG/0.4 ML SYRINGE SUBCUT (20:57)
[2023-02-18] MEDS: Tamsulosin HCL 0.4 MG CAPSULE PO (20:57)
[2023-02-18 22:22] VITALS: PULSE 75; RESP 22; O2SAT 94
[2023-02-19 00:51] VITALS: PULSE 77; RESP 20; O2SAT 95
[2023-02-19] MEDS: HYDROmorphone HCl 1 MG/ML SYRINGE IVPUSH ×5 (01:59→22:09)
[2023-02-19 02:10] VITALS: BP 159/77; PULSE 67; RESP 18; TEMP 36.2; O2SAT 96
[2023-02-19 07:08] VITALS: BP 148/77; PULSE 76; RESP 20; TEMP 36.6; O2SAT 95
[2023-02-19] MEDS: 0.9 % Sodium Chloride Flush 3 ML SYRINGE IVFLUSH (07:24)
[2023-02-19 07:31] LABS: Hemoglobin 10.3 g/dl (14.0-18.0); Mean Corpuscular HGB Conc 33.2 g/dl (31.0-36.0); Mean Corpuscular Volume 93.4 fL (80.0-98.0); Mean Platelet Volume 12.5 fL (9.4-12.4); NRBC Pct Auto 3.1 /100WBC (0.0-0.2); Platelet Count 165 X10*3/uL (160-400); Red Blood Count 3.32 X10*6/uL (4.60-5.80); Red Cell Distribution Width 20.5 % (11.0-16.0); White Blood Count 2.9 X10*3/uL (4.8-10.8)
[2023-02-19 07:48] LABS: Anion Gap 13 (12-20); Blood Urea Nitrogen 13 mg/dL (9-16); Calcium 9.1 mg/dL (8.4-10.2); Carbon Dioxide 24 mmol/L (22-29); Chloride 108 mmol/L (96-108); Creatinine Clr Calc Pharmacy 87.6; Estimated Glomerular Filt Rate > 60; Glucose Random 79 mg/dL (60-115); Potassium 3.8 mmol/L (3.3-5.1); Sodium 141 mmol/L (135-145)
[2023-02-19] MEDS: Folic Acid 1 MG TABLET PO (08:02)
[2023-02-19] MEDS: Nicotine 21 MG PATCH.TD24 TRANSDERMA (08:02)
[2023-02-19 08:15] LABS: HIV AB/AG Nonreactive (Nonreactive); HIV Num 1 0.04 S/CO (0.00-0.99)
[2023-02-19] MEDS: oxyCODONE HCl Immed Release 5 MG TABLET PO ×2 (09:09→20:57)
[2023-02-19] MEDS: NaPROXEN 500 MG TABLET PO (09:09)
--- NOTE | 2023-02-19 10:54 | HO.PM.IMPN ---
Subjective Subjective Date of Service: 02/19/23 Interval History: pain improved but still requiring IV hydromorphone, tolerating diet Review of Systems Review of Systems: Yes all other systems are reviewed and are negative Physical Exam Vital Signs: Vital Signs: Last Vital Signs Temp 97.8 F 02/19/23 07:08 Pulse 76 02/19/23 07:08 Resp 20 02/19/23 07:08 BP 148/77 H 02/19/23 07:08 Pulse Ox 95 02/19/23 07:08 O2 Del Method Room Air 02/19/23 07:08 BMI result Body Mass Index 39.2 Gen: in no acute distress HEENT: sclera anicteric, moist mucus membranes Neck: supple Lungs: clear to auscultation bilaterally Heart: regular rate and rhythm, no murmurs, Abd: soft, mild tenderness periumbilically with no rebound, non-distended, obese Ext: no edema Skin: warm/well-perfused Neuro: alert and oriented x3, no focal findings Psych: appropriate affect Objective Data Active Medications Acetaminophen (Acetaminophen 325 Mg Tablet) 650 mg PO Q6H PRN PRN Reason: Pain, Mild (Pain Scale 1-3) Al Hydroxide/Mg Hydroxide (Magnesium Hydrox/Alum Hydrox 30 Ml Oral.Susp) 30 ml PO Q4H PRN PRN Reason: Heartburn/Nausea Enoxaparin Sodium (Enoxaparin Sodium 40 Mg/0.4 Ml Syringe) 40 mg SUBCUT BEDTIME [facility] Last Admin: 02/18/23 20:57 Dose: 40 mg Documented By: ANI Folic Acid (Folic Acid 1 Mg Tablet) 1 mg PO DAILY [facility] Last Admin: 02/19/23 08:02 Dose: 1 mg Documented By: CRISTIAN Hydromorphone HCl (Hydromorphone Hcl 1 Mg/Ml Syringe) 1 mg IVPUSH Q4H PRN; Protocol PRN Reason: Pain, Severe (Pain Scale 7-10) Last Admin: 02/19/23 07:24 Dose: 1 mg Documented By: CRISTIAN Lisinopril (Lisinopril 10 Mg Tablet) 30 mg PO BEDTIME [facility]; Protocol Naproxen (Naproxen 500 Mg Tablet) 500 mg PO Q12H PRN PRN Reason: Pain, Moderate(Pain Scale 4-6) Last Admin: 02/19/23 09:09 Dose: 500 mg Documented By: CRISTIAN Nicotine (Nicotine 21 Mg Patch.Td24) 21 mg TRANSDERMA DAILY [facility] Last Admin: 02/19/23 08:02 Dose: 21 mg Documented By: CRISTIAN Ondansetron HCl (Ondansetron Hcl 4 Mg/2 Ml Vial) 4 mg IVPUSH Q8H PRN PRN Reason: Nausea and Vomiting Oxycodone HCl (Oxycodone Hcl Immed Release 5 Mg Tablet) 5 mg PO Q6H PRN PRN Reason: Pain, Moderate(Pain Scale 4-6) Last Admin: 02/19/23 09:09 Dose: 5 mg Documented By: CRISTIAN Sodium Chloride (0.9 % Sodium Chloride Flush 3 Ml Syringe) 3 ml IVFLUSH QSHIFT [facility] Last Admin: 02/19/23 07:24 Dose: 3 ml Documented By: CRISTIAN Tamsulosin HCl (Tamsulosin Hcl 0.4 Mg Capsule) 0.4 mg PO BEDTIME [facility] Last Admin: 02/18/23 20:57 Dose: 0.4 mg Documented By: ANI Temazepam (Temazepam 15 Mg Capsule) 30 mg PO BEDTIME [facility] Last Admin: 02/18/23 20:57 Dose: 30 mg Documented By: ANI Trazodone HCl (Trazodone Hcl 100 Mg Tablet) 100 mg PO BEDTIME [facility] Last Admin: 02/18/23 20:57 Dose: 100 mg Documented By: ANI Labs 02/19/23 05:54 02/19/23 05:54 Labs: Laboratory Results - last 24 hr 02/19/23 05:54 MCV 93.4 MCH 31.0 MCHC 33.2 RDW 20.5 H Plt Count 165 MPV 12.5 H Absolute Nucleated RBC 0.090 H Nucleated RBC % (auto) 3.1 H Anion Gap 13 Estim Creat Clear Calc 87.6 Estimated GFR > 60 Random Glucose 79 Calcium 9.1 HIV 1&2 Ab/P24 Ag 4thGn Nonreactive Impressions Abdomen Ultrasound 02/17/23 15:00 IMPRESSION: 1. Cholelithiasis. No ultrasound evidence to suggest acute cholecystitis. 2. Splenomegaly. Assessment and Plan (1) Obesity (BMI 35.0-39.9 without comorbidity): Status: Acute (2) Elevated liver enzymes: Status: Acute (3) Acute pancreatitis: Status: Acute Plan d4 72yo M with HTN, HLD, GHADA, BPH, prostate CA admitted for 1st episode of acute pancreatitis acute pancreatitis - intermittent but minimal use of alcohol - US shows cholelithiasis; will consult Gen Surg for lap jeff - TGs normal - BUSHRA, IgG pending to assess for autoimmune pancreatitis - GI following - LFTs normalized - advanced to solid diet 02/18/23 folate deficient anemia - repleting HTN - lisinopril GHADA - BiPAP @ night BPH - tamsulosin insomnia - trazodone + temazepam tobacco abuse - NRT VTE ppx - LMWH dispo - eventual home In my clinical judgment, the patient requires continued inpatient hospitalization for the following reasons: surgical consultation Total time managing care of this patient today: 35 minutes. Quality Stroke Does the patient have a stroke diagnosis?: No VTE Prior VTE?: No VTE Risk Level:: Medical - moderate - high VTE Device Contraindication: Treatment Not Indicated VTE Drug Contraindication: N/A - Med Ordered
[2023-02-19 11:11] LABS: Lipase 21 U/L (8-78)
[2023-02-19 15:23] LABS: Immunoglobulin G Subclass 1 650 mg/dL (382-929); Immunoglobulin G Subclass 2 310 mg/dL (241-700); Immunoglobulin G Subclass 3 63 mg/dL (22-178); Immunoglobulin G Subclass 4 46.6 mg/dL (4-86); Immunoglobulin G Total 1125 mg/dL (600-1540)
[2023-02-19 15:32] VITALS: BP 150/74; PULSE 72; RESP 20; TEMP 36.4; O2SAT 95
[2023-02-19 19:07] VITALS: BP 165/75; PULSE 78; RESP 20; TEMP 36.6; O2SAT 97
[2023-02-19] MEDS: Enoxaparin Sodium 40 MG/0.4 ML SYRINGE SUBCUT (20:57)
[2023-02-19] MEDS: Temazepam 15 MG CAPSULE 30 MG PO (20:57)
[2023-02-19] MEDS: traZODone HCL 100 MG TABLET PO (20:58)
[2023-02-19] MEDS: Tamsulosin HCL 0.4 MG CAPSULE PO (20:58)
[2023-02-19] MEDS: lisinopriL 10 MG TABLET 30 MG PO (20:58)
[2023-02-20 00:57] VITALS: PULSE 78; RESP 14; O2SAT 97
[2023-02-20 03:37] VITALS: RESP 15; O2SAT 95
[2023-02-20 04:00] VITALS: BP 118/76; PULSE 55; RESP 16; TEMP 36.9; O2SAT 96
[2023-02-20] MEDS: HYDROmorphone HCl 1 MG/ML SYRINGE IVPUSH ×3 (04:25→13:39)
[2023-02-20] MEDS: oxyCODONE HCl Immed Release 5 MG TABLET PO (05:56)
[2023-02-20 07:16] VITALS: BP 159/78; PULSE 68; RESP 20; TEMP 36.6; O2SAT 97
--- NOTE | 2023-02-20 08:10 | P.CONGS_ITS ---
History of Present Illness Consult details Consult date: 02/20/23 Narrative: 72M admitted on Feb 16, 2023 for epigastric pain. His lipase was 1400 at that time and his CT sugegsted acute pancreatitits. His US shows gallstones without cholecystitis. He says his abdominal pain has already resolved. He is able to tolerate diet well. He denies frequent alcohol intake. He does not have hypertrigylceridemia. He does use a BIPAP machine for sleep apnea. Review of Systems 2 Constitutional: Constitutional: Denies chills and Denies fever(s) Cardiovascular: Cardiovascular: Denies chest pain, Denies dyspnea and Reports dyspnea on exertion Respiratory: Respiratory: Denies cough, Denies dyspnea and Reports dyspnea on exertion Gastrointestinal: Gastrointestinal: Denies hematochezia and Denies change in bowel habits Genitourinary: Genitourinary: Denies hematuria and Denies difficulty urinating Musculoskeletal: Musculoskeletal: Denies back pain and Denies limited range of motion Neurologic: Denies focal weakness and Denies convulsions Psychiatric: Psychiatric: Denies depression and Denies mood swings PMFSH Past Medical History Medical History (Updated 02/20/23 @ 14:08 by Louis Sherman MD) Splenomegaly Osteoarthritis of right knee Venous insufficiency of both lower extremities Insomnia Colonoscopy refused Hyperlipidemia OA (osteoarthritis) of knee HTN (hypertension) Prostate CA Central sleep apnea Family History Family History Father Family history of cancer Mother CHF (congestive heart failure) Mental health disorder Surgical History Surgical History (Updated 02/20/23 @ 13:20 by Joanne Bowles MD) S/P tendon repair Status post total knee replacement, right H/O wisdom tooth extraction Social History Social History Household Members: None Housing: Apartment Are you a primary attending ambulatory care to a significant other at home: No Do you presently have visiting nurse or other home services: No Alcohol intake: current Alcohol intake frequency: holidays/special occasions only Alcohol type: hard liquor Patient Tobacco Use Status: Former Tobacco user Quit Date: 2 MTHS AGO Tobacco use type: Cigarette Years Smoked: 52 e-Cigarette/Vaping Use: Former Use Advance Directives Date on File: 11/07/21 service: No Current occupational status: retired Meds Allergies Allergy/AdvReac Type Severity Reaction Status Date / Time atropine AdvReac Intermediate panic Verified 02/15/23 17:44 attack [id number] Reductase AdvReac Intermediate hematuria/ thick Verified 02/15/23 17:44 Inhibitor semen Bee stings Allergy Severe anaphylaxis Uncoded 02/15/23 17:44 urinary catheter AdvReac Intermediate panic Uncoded 02/15/23 17:44 attack Active Medications: Current Medications Acetaminophen (Acetaminophen 325 Mg Tablet) 650 mg PO Q6H PRN PRN Reason: Pain, Mild (Pain Scale 1-3) Al Hydroxide/Mg Hydroxide (Magnesium Hydrox/Alum Hydrox 30 Ml Oral.Susp) 30 ml PO Q4H PRN PRN Reason: Heartburn/Nausea Enoxaparin Sodium (Enoxaparin Sodium 40 Mg/0.4 Ml Syringe) 40 mg SUBCUT BEDTIME [facility] Last Admin: 02/19/23 20:57 Dose: 40 mg Folic Acid (Folic Acid 1 Mg Tablet) 1 mg PO DAILY [facility] Last Admin: 02/19/23 08:02 Dose: 1 mg Hydromorphone HCl (Hydromorphone Hcl 1 Mg/Ml Syringe) 1 mg IVPUSH Q4H PRN; Protocol PRN Reason: Pain, Severe (Pain Scale 7-10) Last Admin: 02/20/23 04:25 Dose: 1 mg Lisinopril (Lisinopril 10 Mg Tablet) 30 mg PO BEDTIME [facility]; Protocol Last Admin: 02/19/23 20:58 Dose: 30 mg Naproxen (Naproxen 500 Mg Tablet) 500 mg PO Q12H PRN PRN Reason: Pain, Moderate(Pain Scale 4-6) Last Admin: 02/19/23 09:09 Dose: 500 mg Nicotine (Nicotine 21 Mg Patch.Td24) 21 mg TRANSDERMA DAILY [facility] Last Admin: 02/19/23 08:02 Dose: 21 mg Ondansetron HCl (Ondansetron Hcl 4 Mg/2 Ml Vial) 4 mg IVPUSH Q8H PRN PRN Reason: Nausea and Vomiting Oxycodone HCl (Oxycodone Hcl Immed Release 5 Mg Tablet) 5 mg PO Q6H PRN PRN Reason: Pain, Moderate(Pain Scale 4-6) Last Admin: 02/20/23 05:56 Dose: 5 mg Sodium Chloride (0.9 % Sodium Chloride Flush 3 Ml Syringe) 3 ml IVFLUSH QSHIFT [facility] Last Admin: 02/20/23 02:37 Dose: Not Given Tamsulosin HCl (Tamsulosin Hcl 0.4 Mg Capsule) 0.4 mg PO BEDTIME [facility] Last Admin: 02/19/23 20:58 Dose: 0.4 mg Temazepam (Temazepam 15 Mg Capsule) 30 mg PO BEDTIME [facility] Last Admin: 02/19/23 20:57 Dose: 30 mg Trazodone HCl (Trazodone Hcl 100 Mg Tablet) 100 mg PO BEDTIME [facility] Last Admin: 02/19/23 20:58 Dose: 100 mg Home Medications Medication Instructions Recorded Confirmed Last Taken Type finasteride 5 mg tablet 5 mg PO DAILY 02/16/23 02/16/23 02/14/23 History lisinopril 30 mg tablet 30 mg PO BEDTIME 02/16/23 02/16/23 02/14/23 History naproxen 500 mg tablet 500 mg PO BID 02/16/23 02/16/23 02/14/23 History nicotine 21 mg/24 hr daily 1 patch topical DAILY 02/16/23 02/16/23 02/14/23 History transdermal patch tamsulosin 0.4 mg capsule 0.4 mg PO BEDTIME 02/16/23 02/16/23 02/14/23 History temazepam 30 mg capsule 30 mg PO DAILY@1800 PRN insomnia 02/16/23 02/16/23 02/14/23 History tramadol 50 mg tablet 50 mg PO TID PRN Pain 02/16/23 02/16/23 02/14/23 History trazodone 100 mg tablet 100 mg PO DAILY@1800 Insomnia 02/16/23 02/16/23 02/14/23 History vitamin B complex 1 cap PO DAILY 02/16/23 02/16/23 02/14/23 History Physical Exam 2 Vital Signs: Vital Signs: Last Vital Signs Temp 97.8 F 02/20/23 07:16 Pulse 68 02/20/23 07:16 Resp 20 02/20/23 07:16 BP 159/78 H 02/20/23 07:16 Pulse Ox 97 02/20/23 07:16 O2 Del Method Room Air 02/20/23 07:16 BMI result Body Mass Index 39.2 Const: General: comfortable and no acute distress Resp: Effort & Inspection: normal respiratory effort Cardio: Rate: regular rate GI: Other: no Servin's sign Palpation (GI): Soft to palpation, not firm, nontender and no guarding Results Labs 02/20/23 13:28 02/19/23 05:54 Labs: Urine 02/15/23 Range/Units 23:34 Urine Color Dark Yellow Urine Appearance Clear Urine pH 5.5 (5.0-9.0) Ur Specific [place] 1.015 (1.005-1.025) Urine Protein Trace (Neg-Trace) mg/dL Urine Glucose (UA) Negative (Negative) mg/dL All other labs normal. Imaging Abdomen CT scan report/results: report reviewed and image reviewed CT scan - pelvis: report reviewed and image reviewed Abdominal ultrasound report/results: report reviewed and image reviewed Assessment and Plan (1) Acute pancreatitis: Qualifiers: Acute pancreatitis complication: no infection or necrosis Pancreatitis type: idiopathic Qualified Code(s): K85.00 - Idiopathic acute pancreatitis without necrosis or infection Status: Acute He was admitted for epigastric pain with elevated lipase and a CT scan suggesting acute pancreatitis. He did not have RUQ pain or tenderness then. His imaging studies show gallstones without cholecystitis. He does not have a hx of ETOH abuse or hypertriglyceridemia, so etiology is probably gallstones. He says he feels well now. He says he wants to go home today and plans to ffup with me in the office to consider cholecystectomy. He understands the risks of recurrence of symptoms. He states he is scheduled to undergo eye surgery in a few weeks as well and says he may have to do cholecystectomy after that. (2) Splenomegaly: Status: Acute Review of his imaging shows the spleen to be markedly enlarged. He has had low WBCs consistently as well despite his pancreatitis. He may need to be worked up for this as well. Procedures Date of Service Date of Service: 02/22/23
[2023-02-20] MEDS: Nicotine 21 MG PATCH.TD24 TRANSDERMA (08:52)
[2023-02-20] MEDS: 0.9 % Sodium Chloride Flush 3 ML SYRINGE IVFLUSH (08:52)
[2023-02-20] MEDS: Folic Acid 1 MG TABLET PO (08:52)
--- NOTE | 2023-02-20 11:42 | HO.PM.IMPN ---
Subjective Subjective Date of Service: 02/20/23 Interval History: pain resolved noted on CT/US to have enlarged spleen, 23 cm no fever/chills/wt loss/night sweats/other B symptoms Review of Systems Review of Systems: Yes all other systems are reviewed and are negative Physical Exam Vital Signs: Vital Signs: Last Vital Signs Temp 97.8 F 02/20/23 07:16 Pulse 68 02/20/23 07:16 Resp 20 02/20/23 07:16 BP 159/78 H 02/20/23 07:16 Pulse Ox 97 02/20/23 07:16 O2 Del Method Room Air 02/20/23 07:16 BMI result Body Mass Index 39.2 Gen: in no acute distress HEENT: sclera anicteric, moist mucus membranes Neck: supple Lungs: clear to auscultation bilaterally Heart: regular rate and rhythm, no murmurs Abd: soft, non-tender, non-distended Ext: no edema Skin: warm/well-perfused Neuro: alert and oriented x3, no focal findings Psych: appropriate affect Objective Data Active Medications Acetaminophen (Acetaminophen 325 Mg Tablet) 650 mg PO Q6H PRN PRN Reason: Pain, Mild (Pain Scale 1-3) Al Hydroxide/Mg Hydroxide (Magnesium Hydrox/Alum Hydrox 30 Ml Oral.Susp) 30 ml PO Q4H PRN PRN Reason: Heartburn/Nausea Enoxaparin Sodium (Enoxaparin Sodium 40 Mg/0.4 Ml Syringe) 40 mg SUBCUT BEDTIME [facility] Last Admin: 02/19/23 20:57 Dose: 40 mg Documented By: KAYLEIGH Folic Acid (Folic Acid 1 Mg Tablet) 1 mg PO DAILY [facility] Last Admin: 02/20/23 08:52 Dose: 1 mg Documented By: LAMINE Hydromorphone HCl (Hydromorphone Hcl 1 Mg/Ml Syringe) 1 mg IVPUSH Q4H PRN; Protocol PRN Reason: Pain, Severe (Pain Scale 7-10) Last Admin: 02/20/23 08:57 Dose: 1 mg Documented By: LAMINE Lisinopril (Lisinopril 10 Mg Tablet) 30 mg PO BEDTIME [facility]; Protocol Last Admin: 02/19/23 20:58 Dose: 30 mg Documented By: KAYLEIGH Naproxen (Naproxen 500 Mg Tablet) 500 mg PO Q12H PRN PRN Reason: Pain, Moderate(Pain Scale 4-6) Last Admin: 02/19/23 09:09 Dose: 500 mg Documented By: CRISTIAN Nicotine (Nicotine 21 Mg Patch.Td24) 21 mg TRANSDERMA DAILY [facility] Last Admin: 02/20/23 08:52 Dose: 21 mg Documented By: LAMINE Ondansetron HCl (Ondansetron Hcl 4 Mg/2 Ml Vial) 4 mg IVPUSH Q8H PRN PRN Reason: Nausea and Vomiting Oxycodone HCl (Oxycodone Hcl Immed Release 5 Mg Tablet) 5 mg PO Q6H PRN PRN Reason: Pain, Moderate(Pain Scale 4-6) Last Admin: 02/20/23 05:56 Dose: 5 mg Documented By: ANI Sodium Chloride (0.9 % Sodium Chloride Flush 3 Ml Syringe) 3 ml IVFLUSH QSHIFT [facility] Last Admin: 02/20/23 08:52 Dose: 3 ml Documented By: LAMINE Tamsulosin HCl (Tamsulosin Hcl 0.4 Mg Capsule) 0.4 mg PO BEDTIME [facility] Last Admin: 02/19/23 20:58 Dose: 0.4 mg Documented By: KAYLEIGH Temazepam (Temazepam 15 Mg Capsule) 30 mg PO BEDTIME [facility] Last Admin: 02/19/23 20:57 Dose: 30 mg Documented By: KAYLEIGH Trazodone HCl (Trazodone Hcl 100 Mg Tablet) 100 mg PO BEDTIME [facility] Last Admin: 02/19/23 20:58 Dose: 100 mg Documented By: KAYLEIGH Labs 02/19/23 05:54 02/19/23 05:54 Labs: Laboratory Results - last 24 hr 02/15/23 02/18/23 18:15 06:05 Smear Path Review IgG Total 1125 IgG Subclass 1 650 IgG Subclass 2 310 IgG Subclass 3 63 IgG Subclass 4 46.6 Assessment and Plan (1) Obesity (BMI 35.0-39.9 without comorbidity): Status: Acute (2) Elevated liver enzymes: Status: Acute (3) Acute pancreatitis: Status: Acute Plan d5 72yo M with HTN, HLD, GHADA, BPH, prostate CA admitted for 1st episode of acute pancreatitis also noted to have splenomegaly + leukopenia splenomegaly + leukopenia - request LDH + path smear review + Heme-Onc consult, may need BM sampling acute pancreatitis - intermittent but minimal use of alcohol - US shows cholelithiasis; Gen Surg consulted, outpt lap jeff after workup of splenomegaly - TGs normal - BUSHRA, IgG pending to assess for autoimmune pancreatitis - GI following - LFTs normalized - advanced to solid diet 02/18/23 folate deficient anemia - repleting HTN - lisinopril GHADA - BiPAP @ night BPH - tamsulosin insomnia - trazodone + temazepam tobacco abuse - NRT VTE ppx - LMWH dispo - eventual home In my clinical judgment, the patient requires continued inpatient hospitalization for the following reasons: hematological consultation Total time managing care of this patient today: 35 minutes. Quality Stroke Does the patient have a stroke diagnosis?: No VTE Prior VTE?: No VTE Risk Level:: Medical - moderate - high VTE Device Contraindication: Treatment Not Indicated VTE Drug Contraindication: N/A - Med Ordered
[2023-02-20 12:18] LABS: Lactate Dehydrogenase 364 U/L (118-273)
[2023-02-20 12:54] LABS: Anti Nuclear Antibody Screen NEGATIVE (NEGATIVE)
--- NOTE | 2023-02-20 13:20 | PM.HEMONCCN ---
Subjective - Subjective Chief complaint: Abdominal pain Patient: new to practice Consult date: 02/20/23 Requesting Physician: Dr. Sherman Primary Care Provider: Unknown Physician HPI - Consult Narrative Reason for consult: Splenomegaly Narrative: Burt Avalos is a 72 year old male was admitted on 02/16/2023 with complaints of abdominal pain, and diagnosed with pancreatitis. CT abdomen/pelvis with contrast showed splenomegaly with spleen of size of 25 cm. No lymphadenopathy or hepatomegaly. He has had no constitutional symptoms such as fever, chills, night sweats or unexplained weight loss. He has epigastric discomfort started on the day of admission and was associated with nausea and emesis. His pain is better now. He denies any recent infections. He drinks alcohol but not excessively. Review of Systems - Constitutional Reports as per HPI, Denies poor appetite, Denies weakness, Denies weight loss - Cardiovascular Reports no additional cardiovascular complaints - Respiratory Reports no additional respiratory complaints - Neurologic Denies focal weakness, Denies convulsions [facility] Medical History: Medical History (Last Updated 02/20/23 @ 11:35 by Nima Mott MD) Central sleep apnea Colonoscopy refused HTN (hypertension) Hyperlipidemia Insomnia OA (osteoarthritis) of knee Osteoarthritis of right knee Prostate CA Splenomegaly Venous insufficiency of both lower extremities Family History: Family History (Last Reviewed 02/20/23 @ 08:12 by Nima Mott MD) Father Family history of cancer Mother CHF (congestive heart failure) Mental health disorder Surgical History: Surgical History (Last Reviewed 02/20/23 @ 08:12 by Nima Mott MD) H/O wisdom tooth extraction S/P tendon repair Status post total knee replacement, right Social History: Social History (Last Reviewed 02/20/23 @ 08:12 by Nima Mott MD) Living Situation History: Household Members: None Housing: Apartment Are you a primary healthcare corporate account director to a significant other at home: No Do you presently have visiting nurse or other home services: No Tobacco History: Patient Tobacco Use Status: Former Tobacco user Tobacco use type: Cigarette Cigarettes Per Day: 10 Years Smoked: 52 Smoke Quit Date: 2 MTHS AGO e-Cigarette/Vaping Use: Former Use Advance Directives: Advance Directives Date on File: 11/07/21 Occupation Assessmet: service: No Current occupational status: retired Home Medications and Allergies Current Medications: Current Medications Acetaminophen (Acetaminophen 325 Mg Tablet) 650 mg PO Q6H PRN PRN Reason: Pain, Mild (Pain Scale 1-3) Al Hydroxide/Mg Hydroxide (Magnesium Hydrox/Alum Hydrox 30 Ml Oral.Susp) 30 ml PO Q4H PRN PRN Reason: Heartburn/Nausea Enoxaparin Sodium (Enoxaparin Sodium 40 Mg/0.4 Ml Syringe) 40 mg SUBCUT BEDTIME [facility] Last Admin: 02/19/23 20:57 Dose: 40 mg Folic Acid (Folic Acid 1 Mg Tablet) 1 mg PO DAILY [facility] Last Admin: 02/20/23 08:52 Dose: 1 mg Hydromorphone HCl (Hydromorphone Hcl 1 Mg/Ml Syringe) 1 mg IVPUSH Q4H PRN; Protocol PRN Reason: Pain, Severe (Pain Scale 7-10) Last Admin: 02/20/23 08:57 Dose: 1 mg Lisinopril (Lisinopril 10 Mg Tablet) 30 mg PO BEDTIME [facility]; Protocol Last Admin: 02/19/23 20:58 Dose: 30 mg Naproxen (Naproxen 500 Mg Tablet) 500 mg PO Q12H PRN PRN Reason: Pain, Moderate(Pain Scale 4-6) Last Admin: 02/19/23 09:09 Dose: 500 mg Nicotine (Nicotine 21 Mg Patch.Td24) 21 mg TRANSDERMA DAILY [facility] Last Admin: 02/20/23 08:52 Dose: 21 mg Ondansetron HCl (Ondansetron Hcl 4 Mg/2 Ml Vial) 4 mg IVPUSH Q8H PRN PRN Reason: Nausea and Vomiting Oxycodone HCl (Oxycodone Hcl Immed Release 5 Mg Tablet) 5 mg PO Q6H PRN PRN Reason: Pain, Moderate(Pain Scale 4-6) Last Admin: 02/20/23 05:56 Dose: 5 mg Sodium Chloride (0.9 % Sodium Chloride Flush 3 Ml Syringe) 3 ml IVFLUSH QSHIFT [facility] Last Admin: 02/20/23 08:52 Dose: 3 ml Tamsulosin HCl (Tamsulosin Hcl 0.4 Mg Capsule) 0.4 mg PO BEDTIME [facility] Last Admin: 02/19/23 20:58 Dose: 0.4 mg Temazepam (Temazepam 15 Mg Capsule) 30 mg PO BEDTIME [facility] Last Admin: 02/19/23 20:57 Dose: 30 mg Trazodone HCl (Trazodone Hcl 100 Mg Tablet) 100 mg PO BEDTIME [facility] Last Admin: 02/19/23 20:58 Dose: 100 mg Home Medications Medication Instructions Recorded Confirmed Type finasteride 5 mg tablet 5 mg PO DAILY 02/16/23 02/16/23 History lisinopril 30 mg tablet 30 mg PO BEDTIME 02/16/23 02/16/23 History naproxen 500 mg tablet 500 mg PO BID 02/16/23 02/16/23 History nicotine 21 mg/24 hr daily 1 patch topical DAILY 02/16/23 02/16/23 History transdermal patch tamsulosin 0.4 mg capsule 0.4 mg PO BEDTIME 02/16/23 02/16/23 History temazepam 30 mg capsule 30 mg PO DAILY@1800 PRN insomnia 02/16/23 02/16/23 History tramadol 50 mg tablet 50 mg PO TID PRN Pain 02/16/23 02/16/23 History trazodone 100 mg tablet 100 mg PO DAILY@1800 Insomnia 02/16/23 02/16/23 History vitamin B complex 1 cap PO DAILY 02/16/23 02/16/23 History Allergies Allergy/AdvReac Type Severity Reaction Status Date / Time atropine AdvReac Intermediate panic Verified 02/15/23 17:44 attack [id number] Reductase AdvReac Intermediate hematuria/ thick Verified 02/15/23 17:44 Inhibitor semen Bee stings Allergy Severe anaphylaxis Uncoded 02/15/23 17:44 urinary catheter AdvReac Intermediate panic Uncoded 02/15/23 17:44 attack Physical Exam Vital signs: Vital Signs Temp 97.8 F 02/20/23 07:16 Pulse 68 02/20/23 07:16 Resp 20 02/20/23 07:16 BP 159/78 H 02/20/23 07:16 Pulse Ox 97 02/20/23 07:16 O2 Del Method Room Air 02/20/23 07:16 Intake & Output 02/19/23 02/20/23 02/20/23 18:59 06:59 18:59 Intake Total 930 / 930 Balance 930 / 930 Intake: Intake, Oral Amount 930 / 930 Other: Breakfast % Eaten 75% Lunch % Eaten 75% Dinner % Eaten 100% Number of Unmeasured Voids 3 2 Urine Bathroom Urine Color Yellow Weight 113.398 kg - Constitutional Present: obese - Routine HEENT Exam Head: Present: normal inspection Eye: Present: PERRL - Routine Neck Exam Absent: lymphadenopathy - Routine Respiratory Exam Present: CTAB. Absent: accessory muscle use - Routine Cardiovascular Exam Cardiovascular: Present: S1, S2 - Routine Abdominal Exam Present: organomegaly, soft - Routine Extremities Exam Present: pulses intact Hem/Onc Consult Result - Labs CBC & Chem 7: 02/19/23 05:54 02/19/23 05:54 Assessment and Plan Patient Active problem list reviewed?: Yes (1) Splenomegaly Status: Acute Assessment and plan: 1. This is a 72-year-old male admitted for acute pancreatitis found to have splenomegaly and mild cytopenias. Spleen size is 25 cm, no hepatomegaly or lymphadenopathy. He does not have left upper quadrant pain but is slightly tender in the left quadrant. He denies early satiety or constitutional symptoms, he has had no weight loss. He has anemia and leukopenia and slightly elevated LDH. This raises suspicious for lymphoma such as splenic marginal zone lymphoma. No evidence of brisk hemolysis. Submit haptoglobin level as outpatient. HIV test negative, he has no risk factors for hepatitis. Serum immunofixation is pending. He needs further evaluation with bone marrow aspiration/biopsy. This will be arranged as outpatient. I thank you for this consultation. Follow-up in 2 weeks. - Time Spent With Patient Time Spent with Patient (in minutes): 20
[2023-02-20 13:46] LABS: Hematocrit 29.2 % (42.0-52.0); Hemoglobin 9.9 g/dl (14.0-18.0); Mean Corpuscular HGB Conc 33.9 g/dl (31.0-36.0); Mean Corpuscular Hemoglobin 30.7 pg (27.0-33.0); Mean Corpuscular Volume 90.7 fL (80.0-98.0); Platelet Count 158 X10*3/uL (160-400); Red Blood Count 3.22 X10*6/uL (4.60-5.80)
[2023-02-20 13:47] LABS: WBC ABN SCTR FOR CBC 1; White Blood Count 2.7 X10*3/uL (4.8-10.8)
[2023-02-20 13:50] LABS: INTERNATIONAL NORM RATIO 1.2 (0.9-1.1); Prothrombin Time 14.9 SEC (11.1-13.3)
[2023-02-20 13:52] LABS: Partial Thromboplastin Time 35.3 SEC (26.0-36.4)
--- NOTE | 2023-02-20 14:07 | PM.DS ---
DS: Providers Provider Date of Service: 02/20/23 Date of admission: 02/16/23 01:55 Primary care physician: Unknown Physician Consults: 02/17/23 13:30 Consult to Gastroenterology Routine Consulting Provider: Niru Golden Reason for consultation: acute pancreatitis Has provider been notified: No 02/19/23 10:48 Consult to General Surgery Routine Consulting Provider: [facility] General Surgeons Reason for consultation: cholelithiasis. pancreatitis. lap jeff? 02/20/23 11:23 Consult to Hematology / Oncology Routine Consulting Provider: [facility] Oncology/Hematology Reason for consultation: Leukopenia, Splenomegaly DS: Diagnosis Discharge Diagnosis (1) Splenomegaly: Status: Acute (2) Acute pancreatitis: Status: Acute (3) Cholelithiases: Status: Acute DS: Summary Hospital Course Hospital Course: From the history and physical by the admitting hospitalist, Emmett Teresa, 02/16/23: Patient is a 72-year-old morbidly obese (BMI 39.2) white male with past medical history of hypertension, hyperlipidemia, sleep apnea, BPH and prostate cancer who presents to the emergency room from home complaining of severe epigastric abdominal pain since around 1:00 p.m. this afternoon that started after he had eaten a large brunch earlier in the day. Pain was mild at first but progressively became intense and was associated with nausea and 2 episodes of non-bloody, non-projectile emesis. He tried to wait it up at home but it just got worse hence his decision to come in for evaluation. He denies any associated fever or chills. Initial workup done in the emergency room was significant for elevated serum lipase at 1447. An abdominal CT scan done had findings concerning for acute pancreatitis. Of note, he denies being an alcoholic stating that he last drank alcohol 2 weeks ago and at most will drink maybe 3 times a month. He received intravenous Toradol and morphine for pain following which admission was requested for continued care. 72yo M with HTN, HLD, GHADA, BPH, prostate CA admitted for 1st episode of acute pancreatitis; also noted to have splenomegaly + leukopenia. He was admitted to the hospital with IV fluid hydration and bowel rest. Triglycerides were normal. BUSHRA and IgG were normal. US showed cholelithiasis. Pancreatitis resolved and his diet was advanced to a solid diet. Surgery was consulted and he will need outpatient cholecystectomy after definitive diagnosis of the cause of splenomegaly that was noted on his CT scan. His spleen was enlarged to 23 cm. He had mild leukopenia and anemia but platelets were normal; LDH was slightly high at 364. Hematology-Oncology was consulted and an outpatient bone marrow biopsy was arranged for 02/25/23. He will need to follow up with Dr Bowles from Hematology-Oncology afterwards. He was also diagnosed with folate deficiency and started on oral repletion. Time Attestation Total time managing care of this patient today: 45 mintues. Discharge coordination time: Greater than 30 minutes Quality: Safe Use of Opioids Does Pt have an Active Cancer Diagnosis on the Problem List?: No Quality: Stroke Does the patient have a stroke diagnosis?: No Physical Exam Vital Signs: Vital Signs: Last Vital Signs Temp 97.8 F 02/20/23 07:16 Pulse 68 02/20/23 07:16 Resp 20 02/20/23 07:16 BP 159/78 H 02/20/23 07:16 Pulse Ox 97 02/20/23 07:16 O2 Del Method Room Air 02/20/23 07:16 BMI result Body Mass Index 39.2 Gen: in no acute distress HEENT: sclera anicteric, moist mucus membranes Neck: supple Lungs: clear to auscultation bilaterally Heart: regular rate and rhythm, no murmurs Abd: soft, non-tender, non-distended, spleen tip palpable Ext: no edema Skin: warm/well-perfused Neuro: alert and oriented x3, no focal findings Psych: appropriate affect DS: Data Data Completed and Pending Completed studies during hospitalization [Text1]: Laboratory Results WBC 2.7 X10*3/uL (4.8-10.8) L 02/20/23 13:28 RBC 3.22 X10*6/uL (4.60-5.80) L 02/20/23 13:28 Hgb 9.9 g/dl (14.0-18.0) L 02/20/23 13:28 Hct 29.2 % (42.0-52.0) L 02/20/23 13:28 MCV 90.7 fL (80.0-98.0) 02/20/23 13:28 MCH 30.7 pg (27.0-33.0) 02/20/23 13:28 MCHC 33.9 g/dl (31.0-36.0) 02/20/23 13:28 RDW 20.0 % (11.0-16.0) H 02/20/23 13:28 Plt Count 158 X10*3/uL (160-400) L 02/20/23 13:28 MPV 12.0 fL (9.4-12.4) 02/20/23 13:28 Immature Gran % (Auto) Cancelled 02/15/23 18:15 Neut % (Auto) Cancelled 02/15/23 18:15 Lymph % (Auto) Cancelled 02/15/23 18:15 [place] % (Auto) Cancelled 02/15/23 18:15 Eos % (Auto) Cancelled 02/15/23 18:15 Baso % (Auto) Cancelled 02/15/23 18:15 Lymph # (Auto) Cancelled 02/15/23 18:15 [place] # (Auto) Cancelled 02/15/23 18:15 Eos # (Auto) Cancelled 02/15/23 18:15 Baso # (Auto) Cancelled 02/15/23 18:15 Abs Immat Gran (auto) Cancelled 02/15/23 18:15 Absolute Neuts (auto) Cancelled 02/15/23 18:15 Absolute Nucleated RBC 0.080 X10*3/uL (0.0-0.012) H 02/20/23 13:28 Nucleated RBC % (auto) 3.0 /100WBC (0.0-0.2) H 02/20/23 13:28 Neutrophils % (Manual) 76 % (45-73) H 02/15/23 18:15 Band Neutrophils % 9 % (3-5) H 02/15/23 18:15 Lymphocytes % (Manual) 5 % (20-40) L 02/15/23 18:15 Monocytes % (Manual) 7 % (2-11) 02/15/23 18:15 Metamyelocytes % 1 % 02/15/23 18:15 Myelocytes % 2 % 02/15/23 18:15 Abs Neuts (Manual) 4.3 X10*3/uL (2.0-8.3) 02/15/23 18:15 Lymphocytes # (Manual) 0.3 X10*3/uL (1.2-4.9) L 02/15/23 18:15 Monocytes # (Manual) 0.4 X10*3/uL (0.1-1.2) 02/15/23 18:15 Metamyelocytes # 0.1 X10*3/uL 02/15/23 18:15 Myelocytes # 0.1 X10*/uL 02/15/23 18:15 Nucleated RBCs 2 /100WBC (0-0) H 02/15/23 18:15 Toxic Vacuolation PRESENT 02/15/23 18:15 Platelet Estimate NORMAL (NORMAL) 02/15/23 18:15 Large Platelets PRESENT 02/15/23 18:15 Plt Morphology Comment NOTED 02/15/23 18:15 RBC Morphology NOTED 02/15/23 18:15 Polychromasia 1+ (0-2) /OIF 02/15/23 18:15 Basophilic Stippling 1+ (0-2) /OIF 02/15/23 18:15 Tear Drop Cells 1+ (0-2) /OIF 02/15/23 18:15 Ovalocytes 1+ (5-14) /OIF 02/15/23 18:15 Smear Path Review TNP 02/19/23 05:54 Hold Purple Top SEE NOTE 02/17/23 13:27 PT 14.9 SEC (11.1-13.3) H 02/20/23 13:28 INR 1.2 (0.9-1.1) H 02/20/23 13:28 APTT 35.3 SEC (26.0-36.4) 02/20/23 13:28 Sodium 141 mmol/L (135-145) 02/19/23 05:54 Potassium 3.8 mmol/L (3.3-5.1) 02/19/23 05:54 Chloride 108 mmol/L (96-108) 02/19/23 05:54 Carbon Dioxide 24 mmol/L (22-29) 02/19/23 05:54 Anion Gap 13 (12-20) 02/19/23 05:54 BUN 13 mg/dL (9-16) 02/19/23 05:54 Creatinine 0.93 mg/dL (0.5-1.4) 02/19/23 05:54 Estim Creat Clear Calc 87.6 02/19/23 05:54 Estimated GFR > 60 02/19/23 05:54 Random Glucose 79 mg/dL (60-115) 02/19/23 05:54 Calcium 9.1 mg/dL (8.4-10.2) 02/19/23 05:54 Iron 75 mcg/dL (45-160) 02/18/23 06:05 TIBC 217 mcg/dL (228-428) L 02/18/23 06:05 % Saturation 35 % (15-50) 02/18/23 06:05 Unsat Iron Binding 142 ug/dL 02/18/23 06:05 Ferritin 324 ng/mL (20-250) H 02/17/23 13:27 Total Bilirubin 1.1 mg/dL (0.0-1.0) H 02/18/23 06:05 Direct Bilirubin 0.5 mg/dL (0.0-0.5) 02/18/23 06:05 AST 18 U/L (5-37) 02/18/23 06:05 ALT 15 U/L (0-40) 02/18/23 06:05 Alkaline Phosphatase 109 U/L (39-117) 02/18/23 06:05 Lactate Dehydrogenase 364 U/L (118-273) H 02/19/23 05:54 Troponin I High Sens < 2.7 ng/L (<3.5-35.0) 02/15/23 18:13 C-Reactive Protein 0.48 mg/dL (< or = 0.50) 02/15/23 18:15 Total Protein 6.9 g/dL (6.5-8.0) 02/18/23 06:05 Albumin 3.9 g/dL (3.5-5.0) 02/18/23 06:05 Triglycerides 175 mg/dL (<150) H 02/17/23 06:37 Cholesterol 102 mg/dL (<200) 02/17/23 06:37 LDL Cholesterol, Calc 48 mg/dL (<100) 02/17/23 06:37 HDL Cholesterol 19 mg/dL (>40) L 02/17/23 06:37 Lipase 21 U/L (8-78) 02/19/23 05:54 Vitamin B12 648 pg/mL (200-900) 02/18/23 06:05 Folate 3.8 ng/mL (> or = 4.0) L 02/18/23 06:05 Urine Color Dark Yellow 02/15/23 23:34 Urine Appearance Clear 02/15/23 23:34 Urine pH 5.5 (5.0-9.0) 02/15/23 23:34 Ur Specific [place] 1.015 (1.005-1.025) 02/15/23 23:34 Urine Protein Trace mg/dL (Neg-Trace) 02/15/23 23:34 Urine Glucose (UA) Negative mg/dL (Negative) 02/15/23 23:34 Urine Ketones Negative mg/dL (Negative) 02/15/23 23:34 Urine Blood Trace (Negative) H 02/15/23 23:34 Urine Nitrite Negative (Negative) 02/15/23 23:34 Ur Leukocyte Esterase Trace (Negative) H 02/15/23 23:34 Urine RBC 11-20 /HPF (0-2) H 02/15/23 23:34 Urine WBC 0-5 /HPF (0-5) 02/15/23 23:34 Ur Squamous Epith Cells 0-2 /HPF (0-2) 02/15/23 23:34 Urine Bacteria None Seen (None Seen) 02/15/23 23:34 Hyaline Casts 0-2 /LPF (0-2) 02/15/23 23:34 IgG Total 1125 mg/dL (600-1540) 02/18/23 06:05 IgG Subclass 1 650 mg/dL (382-929) 02/18/23 06:05 IgG Subclass 2 310 mg/dL (241-700) 02/18/23 06:05 IgG Subclass 3 63 mg/dL (22-178) 02/18/23 06:05 IgG Subclass 4 46.6 mg/dL (4-86) 02/18/23 06:05 BUSHRA Screen NEGATIVE (NEGATIVE) 02/18/23 06:05 HIV 1&2 Ab/P24 Ag 4thGn Nonreactive (Nonreactive) 02/19/23 05:54 Impressions Abdomen/Pelvis CT 02/16/23 00:16 IMPRESSION: 1. Peripancreatic infiltration along the body and head of the pancreas suggests pancreatitis. Correlation needed. 2. Splenomegaly. 3. Diverticulosis without diverticulitis. 4. Enlarged prostate gland. Fleischner guidelines were followed. Abdomen Ultrasound 02/17/23 15:00 IMPRESSION: 1. Cholelithiasis. No ultrasound evidence to suggest acute cholecystitis. 2. Splenomegaly. Discharge Plan Discharge Anticipated Discharge Date/Time: 02/20/23 13:59 Patient Disposition: Home, Self-Care Discharge Diagnosis: acute pancreatitis cholelithiasis splenomegaly folate deficiency Referrals: Joanne Bowles MD [Physician] - 2 Weeks Nima Mott MD [Physician] - 1 Month Physician,Unknown J [Primary Care Provider] - 1 Week Shay Gorman MD [Physician] - 1 Week Discharge Medications: New folic acid 1 mg Tablet 1 mg PO DAILY Qty: 30 0RF Continued tamsulosin 0.4 mg capsule 0.4 mg PO BEDTIME trazodone 100 mg tablet 100 mg PO DAILY@1800 temazepam 30 mg capsule 30 mg PO DAILY@1800 PRN (Reason: insomnia) nicotine 21 mg/24 hr patch 24 hour 1 patch topical DAILY lisinopril 30 mg tablet 30 mg PO BEDTIME naproxen 500 mg tablet 500 mg PO BID tramadol 50 mg tablet 50 mg PO TID PRN (Reason: Pain) finasteride 5 mg tablet 5 mg PO DAILY vitamin B complex Capsule 1 cap PO DAILY Discharge Orders: Discharge Order (Routine); Ordered 02/20/23 Ordered By: Louis Sherman Diet: Advance to usual diet Activity on Discharge: As tolerated Stand Alone Forms: Patient Portal Discharge page Other Ambulatory Orders: CT biopsy asp core bone marrow (Routine) Timeframe: 20230225 Facility: [facility] - Location: CT Scan Ordered By: Joanne Bowles CT biopsy bone marrow (Routine) Timeframe: 20230225 Facility: [facility] - Location: CT Scan Ordered By: Joanne Bowles Care Plan Goals: diagnosis of splenomegaly definitive surgical management of cholelithiasis Health Concerns: acute pancreatitis cholelithiasis splenomegaly folate deficiency Plan of Treatment: low-fat diet and avoid alcohol completely take acetaminophen for mild-moderate pain, tramadol for severe pain take folic acid 1 mg daily follow up with [facility] Radiology for CT-guided bone marrow biopsy on 02/25/[address] Bowles from [facility] Oncology-Hematology in 2 weeks follow up with Dr Mott from [facility] General Surgery in 1 month to plan for cholecystectomy Please follow up with your primary care doctor within 1 week. Return to the hospital if you experience recurrent or worsening symptoms. Assessment: See Discharge Summary.
--- NOTE | 2023-02-20 14:24 | PM.EVENT ---
Event Note Date of Service: 02/20/23 Event Note: He had asked to see if I can do his cholecystectomy as an inpatient before he gets discharged I have reviewed his CAT scan and rest of labs He has marked splenomegaly, with spleen almost reaching the midline His WBC has been consistently low with this admission After discussing with hospitalist, it may be best to work him up for his splenomegaly with leukopenia for now He otherwise looks comfortable and asymptomatic Patient understands the above He says he will likely go ahead with outpatient cholecystectomy and will follow up with me in the office Time Spent With Patient Time: Total time managing care of this patient today ____ minutes.
--- NOTE | 2023-02-20 14:33 | MHC.CM.PN ---
DP: PT HAS BEEN MEDICALLY CLEARED FOR DC HOME, NO SERVICES. PT HAS A RIDE HOME VIA FRIEND.
== END 2023-02-20 15:28 | disposition home or self-care (01) | DRG 440 ==
LOC: HO.ED 02-16 01:47 → HO.EDOVER 02-16 02:10 → HO.S3 02-17 19:02
PROVIDERS: Hospitalist; Internal Medicine Gastroenterology; Registered Nurse Emergency; Admitting Provider Internal Medicine; Emergency Provider Emergency Medicine; Visit Provider Family Medicine
DX: K85.00 Idiopathic acute pancreatitis without necrosis or infection (principal); E66.01 Morbid (severe) obesity due to excess calories; E78.5 Hyperlipidemia, unspecified; I10 Essential (primary) hypertension; C61 Malignant neoplasm of prostate; R16.1 Splenomegaly, not elsewhere classified; K80.20 Calculus of gallbladder without cholecystitis without obstruction; G47.33 Obstructive sleep apnea (adult) (pediatric); D52.9 Folate deficiency anemia, unspecified; N40.0 Benign prostatic hyperplasia without lower urinary tract symptoms; G47.00 Insomnia, unspecified; Z68.39 Body mass index [BMI] 39.0-39.9, adult; Z87.891 Personal history of nicotine dependence; Z79.899 Other long term (current) drug therapy
CPT/HCPCS: 36415; 74177; 76700; 80048; 80053; 80061; 80076; 81001; 82232; 82607; 82728; 82746; 82784; 83540; 83615; 83690; 84478; 84484; 85007; 85027; 85610; 85730; 86038; 86140; 86334; 87389; 93005; 94660; 99285; J1170; J1650; J1885; J2270; Q9967

== ENCOUNTER → 2023-02-15 17:48 | Outpatient (BNV) | payer MEDICARE, MEDICAID, SELFPAY | PROVIDERS: Admitting Provider Internal Medicine; Emergency Provider Emergency Medicine; Visit Provider Internal Medicine | DX: R07.9 Chest pain, unspecified (principal); I44.0 Atrioventricular block, first degree | CPT/HCPCS: 93010 ==

== ENCOUNTER → 2023-02-16 01:55 | Outpatient (BNV) | payer MEDICARE, MEDICAID, SELFPAY | PROVIDERS: Admitting Provider Internal Medicine; Emergency Provider Emergency Medicine; Visit Provider Surgery | DX: K85.00 Idiopathic acute pancreatitis without necrosis or infection (principal); R16.1 Splenomegaly, not elsewhere classified | CPT/HCPCS: 99222; 99499 ==

== ENCOUNTER → 2023-02-16 01:55 | Outpatient (BNV) | payer MEDICARE, MEDICAID, SELFPAY | PROVIDERS: Admitting Provider Internal Medicine; Emergency Provider Emergency Medicine; Visit Provider Internal Medicine Gastroenterology | DX: R74.8 Abnormal levels of other serum enzymes (principal); K85.00 Idiopathic acute pancreatitis without necrosis or infection | CPT/HCPCS: 99223 ==

== ENCOUNTER → 2023-02-16 01:55 | Outpatient (BNV) | payer MEDICARE, MEDICAID, SELFPAY | PROVIDERS: Admitting Provider Internal Medicine; Emergency Provider Emergency Medicine; Visit Provider Internal Medicine | DX: R16.1 Splenomegaly, not elsewhere classified (principal); K85.00 Idiopathic acute pancreatitis without necrosis or infection; K80.20 Calculus of gallbladder without cholecystitis without obstruction; E66.9 Obesity, unspecified; R74.8 Abnormal levels of other serum enzymes | CPT/HCPCS: 99223; 99232; 99233; 99239; 99499 ==

== ENCOUNTER → 2023-02-16 01:55 | Outpatient (BNV) | payer MEDICARE, MEDICAID, SELFPAY | PROVIDERS: Admitting Provider Internal Medicine; Emergency Provider Emergency Medicine; Visit Provider Internal Medicine | DX: R16.1 Splenomegaly, not elsewhere classified (principal) | CPT/HCPCS: 99221 ==

== ENCOUNTER 2023-03-07 08:43 | Day surgery (SDC) | payer MEDICARE, MEDICAID, SELFPAY ==
--- NOTE | ~2023-03-07 | CT_ITS ---
Anemia. Concern for lymphoma PROCEDURES: 1. Limited preprocedure CT of the pelvis. Permanent images saved in PACS. 2. 11 g bone marrow core biopsy of the right posterior iliac spine 3. 11 g bone marrow aspirate of the right posterior iliac spine CLINICIANS: Sanjiv Ocampo PA-C MEDICATIONS: -Versed 2 mg, Fentanyl 100 mcg, and lidocaine 1% 10 mL SQ -Antibiotics: None -For additional details, please see nursing flowsheet. COMPLICATIONS: None ESTIMATED BLOOD LOSS: < 5 ml CONTRAST: None SPECIMENS: 11 g core placed in formalin. Bone marrow aspirate placed in EDTA and sodium heparin tubes MODERATE SEDATION TIME: 19 min PROCEDURE NOTE: The procedure, risks, benefits, and alternatives were carefully explained to the patient and written informed consent was obtained. The patient was placed prone on the CT table. A timeout was performed. A limited CT of the pelvis was performed to localize posterior iliac spine and choose appropriate needle entry and trajectory. The patient was prepped and draped in usual sterile fashion. The skin, subcutaneous tissues, and periosteum were anesthetized with lidocaine. Under CT guidance, an 11-gauge bone marrow biopsy needle was advanced into the posterior iliac spine, with the tip positioned slightly cephalad. An 11-gauge core biopsy of the bone marrow was performed and was placed in formalin. Next, the 11-gauge bone marrow biopsy needle was then advanced into the posterior iliac spine, under CT guidance, with the tip positioned slightly caudal. A bone marrow aspirate was performed. The specimen was placed in the provided EDTA and sodium heparin tubes. The needle was removed. A dry dressing was applied and secured with Tegaderm. There were no immediate complications. The patient was stable after the procedure and was transferred to the post anesthesia care unit. The procedure was done under moderate sedation with a dedicated nurse for monitoring of vital signs. CT/CT biopsy asp core bone marrow Impression: CT-guided bone marrow biopsy and aspirate This procedure was performed by Sanjiv Ocampo PA-C and supervised by Dr. Whipple.
[2023-03-07 08:56] VITALS: BMI 37.5
[2023-03-07 11:33] VITALS: BP 113/62; PULSE 81; RESP 18; TEMP 36.2; O2SAT 95
[2023-03-07 11:43] LABS: Bone Marrow SEE SEPARATE REPORT
[2023-03-07 11:48] VITALS: BP 107/67; PULSE 81; RESP 19; TEMP 36.2; O2SAT 94
[2023-03-07 12:30] VITALS: PULSE 81; RESP 20
== END 2023-03-07 12:45 | disposition home or self-care (01) ==
PROVIDERS: Physician Assistant Surgical; Visit Provider Internal Medicine
PROC: (CPT 38221; principal; 2023-03-07 10:30)
DX: R16.1 Splenomegaly, not elsewhere classified (principal); G47.33 Obstructive sleep apnea (adult) (pediatric)
CPT/HCPCS: 36415; 38222; 88184; 88185; 88237; 88264; 88305; 88311; 88313; 88342; 99152; J2250; J2310; J3010

== ENCOUNTER → 2023-03-07 09:53 | Outpatient (BNV) | payer MEDICARE, MEDICAID, SELFPAY | PROVIDERS: Visit Provider Radiology Vascular & Interventional Radiology | DX: R16.1 Splenomegaly, not elsewhere classified (principal) | CPT/HCPCS: 38222; 77012 ==

== ENCOUNTER → 2023-03-12 14:20 | Outpatient (BNV) | payer MEDICARE, MEDICAID, SELFPAY | PROVIDERS: PCP Internal Medicine; Visit Provider Internal Medicine | DX: R16.1 Splenomegaly, not elsewhere classified (principal); D75.81 Myelofibrosis | CPT/HCPCS: 99212; 99214 ==